=== PATIENT | male | born 1955 | race Caucasian/White ===

== ENCOUNTER 2021-06-11 14:09 | Emergency (ER) | payer MEDICARE, MEDICAID, SELFPAY ==
--- NOTE | ~2021-06-11 | XR_ITS ---
EXAMINATION: XR LUMBOSACRAL SPINE CLINICAL INFORMATION: Pain. Evaluate for compression fracture. COMPARISON: 04/29/2020 TECHNIQUE: Three views of the lumbosacral spine. FINDINGS: Stable anterior wedge compression fractures at L1 and L4 resulting in 40% height loss anteriorly at each level without significant loss of the posterior vertebral body height. Stable mild anterior wedging of the T12 vertebral body. Vertebral body heights are otherwise maintained. Small endplate osteophytes and facet arthropathy present throughout the lumbar spine. Moderate bilateral sacroiliac arthrosis. XR/XR lumbar spine 2-3V IMPRESSION: No acute findings. Stable anterior wedge compression fractures of L1 and L4 is 2015.
--- NOTE | ~2021-06-11 | XR_ITS ---
EXAMINATION: XR CHEST CLINICAL INFORMATION: Weakness COMPARISON: 08/30/2015 TECHNIQUE: 2 views of the chest were obtained. FINDINGS: Emphysema. Chronic pleural parenchymal scarring at the right lung apex, where there was previously a thick-walled cavitary lesion. No pleural effusion or pneumothorax. Normal heart size and pulmonary vascularity. No acute or suspicious osseous abnormalities. XR/XR chest 2V IMPRESSION: No acute findings. Emphysema.
[2021-06-11 14:24] VITALS: BP 121/83; BP 94/72; PULSE 104; RESP 18; TEMP 36.7; O2SAT 97; O2SAT 99; BMI 27.6
--- NOTE | 2021-06-11 15:02 | ECG_ITS ---
Test Reason : WEAKNESS Blood Pressure : / mmHG Vent. Rate : 094 BPM Atrial Rate : 094 BPM P-R Int : 146 ms QRS Dur : 086 ms QT Int : 370 ms P-R-T Axes : 081 -06 080 degrees QTc Int : 462 ms Normal sinus rhythm Nonspecific ST and T wave abnormality Abnormal ECG When compared with ECG of 31-AUG-2015 16:05, ST now depressed in Anterior leads Nonspecific T wave abnormality now evident in Anterior leads Referred By: Evelin Alvarez Electronically Signed By:ADINA VERA
--- NOTE | 2021-06-11 15:30 | ED.GENADULT ---
HPI - General Adult General Chief complaint: General Medical Stated complaint: LOW BACK PAIN X'S 1 WEEK,NO NEW INJURY Time Seen by Provider: 06/11/21 14:55 Source: EMS Mode of arrival: EMS Limitations: no limitations History of Present Illness HPI narrative: 66-year-old male with a past medical history of chronic back pain, COPD, bipolar disorder, alcohol induced cognitive impairment, hypertension here with complaints of lower back pain. Per nursing the patient had not been seen in several days and so a neighbor called EMS to do a well check on the patient. Tells me he has been lying in his bed for about 1 week and crawling on the floor to the kitchen to get food and drink. He tells me he has chronic lower back pain and because of this he has pain that limits his mobility. He was using lidocaine patches but ran out of these. He is not taking any other medications to help with the pain. He denies any radiation of pain. No numbness or tingling. No bowel or bladder incontinence. The patient tells me that today he was unable to get out of bed due to pain and therefore he was unable to get up to the bathroom. He was found by nursing to be covered in feces and urine. Related Data Allergies Allergy/AdvReac Type Severity Reaction Status Date / Time ibuprofen [IBUPROFEN] Allergy Severe ANAPHYLAXIS Verified 06/11/21 14:23 cat dander [CATS] Allergy Unknown UNKNOWN Verified 06/11/21 14:23 dog dander [DOGS] Allergy Unknown UNKNOWN Verified 06/11/21 14:23 Review of Systems Review of Systems: Yes all other systems are reviewed and are negative Constitutional: Constitutional: Reports no additional constitutional complaints, Denies body ache(s), Denies chills, Denies fever(s), Denies headache(s) and Denies weakness Eyes: Eyes: Reports no additional eye complaints and Denies change in vision ENT: Reports system reviewed and no additional complaints, except as documented, Denies dizziness, Denies headache(s), Denies nasal congestion, Denies nasal discharge and Denies neck pain Cardiovascular: Cardiovascular: Reports no additional cardiovascular complaints, Denies chest pain, Denies leg edema and Denies dyspnea Respiratory: Respiratory: Reports no additional respiratory complaints, Denies cough and Denies dyspnea Gastrointestinal: Gastrointestinal: Reports no additional gastrointestinal complaints, Denies abdominal pain, Denies diarrhea, Denies nausea and Denies vomiting Genitourinary: Genitourinary: Denies urinary incontinence Musculoskeletal: Musculoskeletal: Reports no additional musculoskeletal complaints, Reports back pain, Denies arthralgias, Denies joint swelling, Denies neck pain, Denies numbness and Denies tingling Integumentary/Breasts: Skin/Breast: Reports system reviewed and no additional complaints, except as docu and Denies rash Neurologic: Reports system reviewed and no additional complaints, except as documented, Denies Abnormal speech present, Denies dizziness, Denies headache(s), Denies numbness, Denies tingling and Denies weakness FOR[facility]LY [facility] Past Medical History Attestation statement: The following information was validated with the patient. Source: old records reviewed and nursing notes reviewed Social History Social History Advance Directives: No Advance Directives Information Provided: Yes Physical Exam Vital Signs: Vital Signs: Last Vital Signs Temp 98.1 F 06/11/21 14:24 Pulse 104 H 06/11/21 14:24 Resp 18 06/11/21 14:24 BP 94/72 06/11/21 14:24 Pulse Ox 97 06/11/21 14:24 Body Mass Index 27.6 ill kept, covered in feces and urine, thin appearing Const: General: cooperative, healthy appearing, comfortable and no acute distress Orientation/consciousness: patient oriented x3 Limitations: no limitations HENMT: Head: Yes normal to inspection Ears: hearing grossly normal bilaterally General nose exam: Normal external nose present Face and sinus: Yes normal facial exam Mouth: Normal oral and palatal mucosa present Throat: Yes posterior oropharynx normal Eyes: General: appearance normal, both eyes and all related structures Pupils: Equal, round and reactive pupils present Neck: Neck: Yes normal visual inspection Chest: Chest palpation & inspection: normal inspection of the chest Resp: Effort & Inspection: normal respiratory effort Auscultation: clear to auscultation bilaterally Cardio: Rate: regular rate Rhythm: regular rhythm Peripheral pulses: Peripheral pulses 2+ throughout GI: Inspection: Yes normal to inspection Palpation (GI): Soft to palpation and nontender Auscultation: normal bowel sounds : General: Yes no CVA tenderness Back/Spine/Pelvis: Other: Midline lumbar tenderness with no steps offs or deformities Back: no CVA tenderness Thoracic/Lumbar Spine: thoracic and lumbar spine normal to inspection Skin: General skin exam: no rashes or lesions noted Neuro: General: patient oriented x3, Normal light touch and pain sensation, no focal motor deficits, normal sensation to monofilament and Unable to assess gait Cranial nerves: Yes CN's II-XII intact bilaterally, Yes Equal, round and reactive pupils present, Yes Bilaterally intact EOM present, Yes Nystagmus not present, Yes Normal facial strength present and Yes Midline tongue present Cognition (Neuro): normal cognition Speech: No Abnormal speech present Gait exam (Neuro): Unable to assess gait Motor exam (neuro): 5/5 motor strength present throughout Sensory Exam: Normal double simultaneous stimulation for sensation Deep tendon reflexes (DTR's): Right patellar reflex intensity grade: 2+ and Left patellar reflex intensity grade: 2+ Coordination: [id number] test normal and [id number] test normal Extrem: General: Yes normal to inspection Course Course Course Narrative: 66 yo male coming from home with reports of worsening chronic low back pain where he know is unable to ambulate. Found laying in bed covered in feces, urine. No neuro deficits or red flag symptoms. Patient withdrawn, flat affect. Denies SI/HI. H/o bipolar but patient tells me discontinued all his medications. Unclear why. Will check labs, UA, CXR, lumbar x-ray, Ekg. 170-reviewed labs. Labs show hyponatremia, hypokalemia, hypochloremia, DEVANG. And on serum osmolality and urine studies. Patient tells me he has discontinued all his medications for quite some time and is currently not seeing a primary care doctor. He also tells me he drinks alcohol daily. I explained to him I would like to admit him to the hospital to treat his electrolyte abnormalities but the patient declined this. He tells me he would like to go home. I explained to him that he could have an abnormal heart rhythm or seizure and this could cause . Patient is aware of this and would like to go home. Explained him additionally that he has told me that he can barely walk due to his back pain and his x-ray today shows a new compression fracture. The patient tells me that he is able to manage and has a friend who lives close by who can help him. I offered him services in the home but he also declined this. He is alert and oriented x3. Denies any suicidal or homicidal thoughts. At this time the patient is able to make his own medical decisions and will sign out against medical advice. 1725-Received call from protective services. They are iniating a case. We discussed the patient at length. They asked for me to hold the patient in the ED tonight. I explicitly asked what their concerns were. The air pollution compliance inspectorday worker told me they were made aware the patient was found covered in feces and urine. They will assign a case therapist to follow-up with the patient who will come meet with the patient and evaluate his home. I asked if his house was deemed unsafe for him to return to and she was unable to answer this I have not seen the home. I explained the patient is oriented x 3 and at this point is able to make his own decisions. I also explained that I cannot hold the patient here against his will. I did discuss this case with my attending physician and while we feel the best decision would be for the patient to be admitted we both agree that he is able to make his own decisions. Protective services will follow-up with him tomorrow. Pt to sign out AMA. Medical Decision Making Medical Records Medical records reviewed: Yes I reviewed the patient's medical records. Lab Data Lab results reviewed: Yes I reviewed the patient's lab results. Result diagrams: 06/11/21 15:52 06/11/21 15:52 Labs: Lab Results 06/11/21 06/11/21 06/11/21 Range/Units 15:52 15:52 15:52 WBC 11.2 H (4.8-10.8) X10*3/uL RBC 5.91 H (4.60-5.80) X10*6/uL Hgb 18.8 H (14.0-18.0) g/dl Hct 50.5 (42-52) % MCV 85.4 (80-98) fL MCH 31.8 (27.0-33.0) pg MCHC 37.2 H (31.0-36.0) g/dl RDW 13.0 (11.0-16.0) % Plt Count 174 (160-400) X10*3/uL MPV 9.0 L (9.4-12.4) fL Immature Gran % (Auto) 1.1 H (0.0-0.4) % Neut % (Auto) 83.4 H (45-73) % Lymph % (Auto) 8.9 L (20-40) % [place] % (Auto) 6.4 (2-11) % Eos % (Auto) 0.1 (0-4) % Baso % (Auto) 0.1 (0-2) % Lymph # (Auto) 1.0 L (1.2-4.9) X10*3/uL [place] # (Auto) 0.7 (0.1-1.2) X10*3/uL Eos # (Auto) 0.0 (0.0-0.4) X10*3/uL Baso # (Auto) 0.0 (0.0-0.2) X10*3/uL Abs Immat Gran (auto) 0.12 H (0.00-0.03) X10*3/uL Absolute Neuts (auto) 9.3 H (2.0-8.3) X10*3/uL Absolute Nucleated RBC 0.030 H (0.0-0.012) X10*3/uL Nucleated RBC % (auto) 0.3 H (0.0-0.2) /100WBC PT (9.9-13.0) SEC INR (0.9-1.1) Sodium 124 L (135-145) mmol/L Potassium 2.8 L (3.3-5.1) mmol/L Chloride 82 L (96-108) mmol/L Carbon Dioxide 21 L (22-29) mmol/L Anion Gap 24 H (12-20) BUN 44 H (9-16) mg/dL Creatinine 1.45 H (0.5-1.4) mg/dL Estim Creat Clear Calc 58.2 Estimated GFR 49 Random Glucose 133 H (60-115) mg/dL Osmolality (281-305) mosm/kg Calcium 9.2 (8.4-10.2) mg/dL Magnesium 3.1 H (1.6-2.6) mg/dL Total Bilirubin 3.4 H (0.0-1.0) mg/dL Direct Bilirubin 2.2 H (0.0-0.5) mg/dL AST 29 (5-37) U/L ALT 31 (0-40) U/L Alkaline Phosphatase 119 H (39-117) U/L Total Creatine Kinase 63 (38-174) U/L Total Protein 7.5 (6.5-8.0) g/dL Albumin 3.7 (3.5-5.0) g/dL TSH 1.03 (0.32-4.0) uIU/mL COVID-19 (TOMY) Negative (Negative) COVID-19 Clin Com See Note 06/11/21 06/11/21 Range/Units 15:55 16:14 WBC (4.8-10.8) X10*3/uL RBC (4.60-5.80) X10*6/uL Hgb (14.0-18.0) g/dl Hct (42-52) % MCV (80-98) fL MCH (27.0-33.0) pg MCHC (31.0-36.0) g/dl RDW (11.0-16.0) % Plt Count (160-400) X10*3/uL MPV (9.4-12.4) fL Immature Gran % (Auto) (0.0-0.4) % Neut % (Auto) (45-73) % Lymph % (Auto) (20-40) % [place] % (Auto) (2-11) % Eos % (Auto) (0-4) % Baso % (Auto) (0-2) % Lymph # (Auto) (1.2-4.9) X10*3/uL [place] # (Auto) (0.1-1.2) X10*3/uL Eos # (Auto) (0.0-0.4) X10*3/uL Baso # (Auto) (0.0-0.2) X10*3/uL Abs Immat Gran (auto) (0.00-0.03) X10*3/uL Absolute Neuts (auto) (2.0-8.3) X10*3/uL Absolute Nucleated RBC (0.0-0.012) X10*3/uL Nucleated RBC % (auto) (0.0-0.2) /100WBC PT 13.5 H (9.9-13.0) SEC INR 1.2 H (0.9-1.1) Sodium (135-145) mmol/L Potassium (3.3-5.1) mmol/L Chloride (96-108) mmol/L Carbon Dioxide (22-29) mmol/L Anion Gap (12-20) BUN (9-16) mg/dL Creatinine (0.5-1.4) mg/dL Estim Creat Clear Calc Estimated GFR Random Glucose (60-115) mg/dL Osmolality 273 L (281-305) mosm/kg Calcium (8.4-10.2) mg/dL Magnesium (1.6-2.6) mg/dL Total Bilirubin (0.0-1.0) mg/dL Direct Bilirubin (0.0-0.5) mg/dL AST (5-37) U/L ALT (0-40) U/L Alkaline Phosphatase (39-117) U/L Total Creatine Kinase (38-174) U/L Total Protein (6.5-8.0) g/dL Albumin (3.5-5.0) g/dL TSH (0.32-4.0) uIU/mL COVID-19 (TOMY) (Negative) COVID-19 Clin Com Imaging Data Chest x-ray: Attestation: I personally reviewed and interpreted this imaging study as follows: Radiologist's impression: [place] [id number] XRay Report Signed Patient: Dat De Dios MR#: [id number] : 1955 Acct:[id number] Age/Sex: 66 / M ADM Date: 06/11/21 Loc: .ED Attending Dr: Ordering Physician: Evelin Alvarez NP Date of Service: 06/11/21 Procedure(s): XR chest 2V Accession Number(s): [id number] cc: Evelin Alvarez NP~ EXAMINATION: XR CHEST CLINICAL INFORMATION: Weakness COMPARISON: 08/30/2015 TECHNIQUE: 2 views of the chest were obtained. FINDINGS: Emphysema. Chronic pleural parenchymal scarring at the right lung apex, where there was previously a thick-walled cavitary lesion. No pleural effusion or pneumothorax. Normal heart size and pulmonary vascularity. No acute or suspicious osseous abnormalities. XR/XR chest 2V IMPRESSION: No acute findings. Emphysema. lumbar xray: Attestation: I personally reviewed and interpreted this imaging study as follows: Radiologist's impression: [address] [address] XRay Report Signed Patient: Dat De Dios MR#: [id number] : 1955 Acct:[id number] Age/Sex: 66 / M ADM Date: 06/11/21 Loc: [facility].ED Attending Dr: Ordering Physician: Evelin Alvarez NP Date of Service: 06/11/21 Procedure(s): XR lumbar spine 2-3V Accession Number(s): [id number] cc: Evelin Alvarez NP~ EXAMINATION: XR LUMBOSACRAL SPINE CLINICAL INFORMATION: Pain. Evaluate for compression fracture. COMPARISON: 04/29/2020 TECHNIQUE: Three views of the lumbosacral spine. FINDINGS: Stable anterior wedge compression fractures at L1 and L4 resulting in 40% height loss anteriorly at each level without significant loss of the posterior vertebral body height.? Stable mild anterior wedging of the T12 vertebral body. Vertebral body heights are otherwise maintained. Small endplate osteophytes and facet arthropathy present throughout the lumbar spine. Moderate bilateral sacroiliac arthrosis. XR/XR lumbar spine 2-3V IMPRESSION: No acute findings. Stable anterior wedge compression fractures of L1 and L4 is 2014. Discharge Plan Discharge Clinical Impression: Acute hyponatremia, Acute hypokalemia, DEVANG (acute kidney injury), Adult failure to thrive, Difficulty in walking, Compression fracture, Hypochloremia Patient Disposition: Left Against Medical Advice Instructions: Dehydration (ED), Vertebral Compression Fracture (ED), Hyponatremia (ED), Hypokalemia (ED) Additional Instructions: Your electrolytes are all very abnormal which can be life-threatening. You could have an abnormal heart rhythm or seizure and/or . It was recommended that he stay in the hospital and be admitted for IV management of your electrolyte abnormalities. You are welcome to return at any time. Stand Alone Forms: Against Medical Advice
[2021-06-11] MEDS: Acetaminophen 325 MG TABLET 975 MG PO (15:41)
[2021-06-11] MEDS: Lidocaine 4 % Patch ADH..PATCH 1 PATCH TRANSDERMA (15:42)
--- NOTE | 2021-06-11 15:42 | PC.NURSE ---
Addendum entered by Savi Isidro 06/11/21 15:49: *BROTHER NAME IS TRACEY Original Note: PATIENT SISTER ELLIOTT PHONE #[phone] AND BROTHER ASHUTOSH PHONE #[phone]
[2021-06-11 15:57] LABS: MANUAL DIFF FLAG NO
[2021-06-11 15:58] LABS: Basophils Percent Auto 0.1 % (0-2); Eosinophils Percent Auto 0.1 % (0-4); Hematocrit 50.5 % (42-52); Hemoglobin 18.8 g/dl (14.0-18.0); Imm Gran Abs Auto 0.12 X10*3/uL (0.00-0.03); Imm Gran Pct Auto 1.1 % (0.0-0.4); Lymphocytes Percent Auto 8.9 % (20-40); Mean Corpuscular HGB Conc 37.2 g/dl (31.0-36.0); Mean Corpuscular Hemoglobin 31.8 pg (27.0-33.0); Mean Corpuscular Volume 85.4 fL (80-98); Monocytes Absolute Auto 0.7 X10*3/uL (0.1-1.2); Monocytes Percent Auto 6.4 % (2-11); NRBC Pct Auto 0.3 /100WBC (0.0-0.2); Neutrophils Absolute Auto 9.3 X10*3/uL (2.0-8.3); Neutrophils Percent Auto 83.4 % (45-73); Platelet Count 174 X10*3/uL (160-400); Red Blood Count 5.91 X10*6/uL (4.60-5.80); White Blood Count 11.2 X10*3/uL (4.8-10.8)
[2021-06-11 16:13] LABS: COVID-19 Test Negative (Negative)
[2021-06-11 16:27] LABS: INTERNATIONAL NORM RATIO 1.2 (0.9-1.1); Prothrombin Time 13.5 SEC (9.9-13.0)
[2021-06-11 16:33] LABS: Alanine Aminotransferase 31 U/L (0-40); Albumin Level 3.7 g/dL (3.5-5.0); Alkaline Phosphatase 119 U/L (39-117); Aspartate Amino Transferase 29 U/L (5-37); Bilirubin Direct 2.2 mg/dL (0.0-0.5); Bilirubin Total 3.4 mg/dL (0.0-1.0); Blood Urea Nitrogen 44 mg/dL (9-16); Calcium 9.2 mg/dL (8.4-10.2); Creatinine Clr Calc Pharmacy 58.2; Estimated Glomerular Filt Rate 49; Glucose Random 133 mg/dL (60-115); Magnesium 3.1 mg/dL (1.6-2.6); Total Protein 7.5 g/dL (6.5-8.0)
[2021-06-11 16:42] LABS: Anion Gap 24 (12-20); Carbon Dioxide 21 mmol/L (22-29); Chloride 82 mmol/L (96-108); Potassium 2.8 mmol/L (3.3-5.1); Sodium 124 mmol/L (135-145)
[2021-06-11] MEDS: Potassium Chloride ER 20 MEQ TAB.ER.PRT 60 MEQ PO (16:52)
[2021-06-11 17:01] LABS: Osmolality, Serum 273 mosm/kg (281-305)
[2021-06-11 17:18] LABS: Thyroid Stimulating Hormone 1.03 uIU/mL (0.32-4.0)
== END 2021-06-11 17:36 | disposition left against medical advice (07) ==
PROVIDERS: Nurse Practitioner Family; Emergency Provider Internal Medicine; PCP Internal Medicine
DX: E87.1 Hypo-osmolality and hyponatremia (principal); E87.6 Hypokalemia; N17.9 Acute kidney failure, unspecified; R62.7 Adult failure to thrive; R26.2 Difficulty in walking, not elsewhere classified; Z20.822 Contact with and (suspected) exposure to COVID-19; M54.5 Low back pain; S32.010A Wedge compression fracture of first lumbar vertebra, initial encounter for closed fracture; S32.040A Wedge compression fracture of fourth lumbar vertebra, initial encounter for closed fracture; S22.080A Wedge compression fracture of T11-T12 vertebra, initial encounter for closed fracture; X58.XXXA Exposure to other specified factors, initial encounter; Y93.9 Activity, unspecified; Y92.9 Unspecified place or not applicable; Y99.9 Unspecified external cause status; F10.20 Alcohol dependence, uncomplicated; I10 Essential (primary) hypertension; F17.210 Nicotine dependence, cigarettes, uncomplicated
CPT/HCPCS: 36415; 71046; 72100; 80048; 80076; 82550; 83735; 83930; 84443; 85025; 85610; 87635; 93005; 99284; 99285

== ENCOUNTER 2021-06-13 13:21 | Inpatient (IN) | payer MEDICARE, MEDICAID, SELFPAY ==
--- NOTE | ~2021-06-13 | CT_ITS ---
EXAMINATION: CT CHEST WITHOUT CONTRAST CLINICAL INFORMATION: Fall. COMPARISON: Chest x-ray 06/11/2021. XR lumbar spine 06/11/2021. TECHNIQUE: Multidetector volumetric CT imaging of the chest was done. Axial MIP volume rendering provided. Sagittal and coronal reformatted images were obtained. This CT examination was performed using dose optimization techniques as appropriate, variously including the following: *Automated exposure control *Adjustment of mA and/or kV according to patient size (this includes techniques or standardized protocols for targeted exams where dose is matched to indication/reason for exam; i.e. extremities or head) *Use of iterative reconstruction technique DLP: 1335 mGy-cm (includes chest, head, and cervical CT) FINDINGS: CIGARET[employer] PACKAGE EXAMINER: Unremarkable. LUNGS: There is diffuse moderate centrilobular and paraseptal emphysema, predominating in the upper lobes. There is mild atelectasis or scarring in the lingula. There is no focal consolidation. There are no apparent pulmonary contusions. MEDIASTINUM: There are scattered atherosclerotic calcifications in the thoracic aorta and coronary arteries. There is no mediastinal or hilar adenopathy. The thyroid gland is unremarkable. PLEURA: There is moderate elevation of the left hemidiaphragm, more so posteriorly, suggesting eventration. AXILLA: No lymphadenopathy. UPPER ABDOMEN: Unremarkable. OSSEOUS STRUCTURES: There appear be old healed left anterolateral 5th and 6th rib fractures. No acute rib fractures are identified. There is a moderate compression deformity of the L1 vertebral body, similar to lumbar radiographs from today but worse when compared to a CT of the chest from 08/22/2015. CT/CT chest wo con IMPRESSION: 1. Diffuse moderate centrilobular and paraseptal emphysema. Mild atelectasis or scarring in the lingula. 2. Moderate elevation of the left hemidiaphragm. 3. Moderate compression deformity of the L1 vertebral body of indeterminate age.
--- NOTE | ~2021-06-13 | CT_ITS ---
EXAMINATION: CT HEAD WITHOUT CONTRAST CLINICAL INFORMATION: Fall, trauma, pain COMPARISON: MR brain 08/30/2015 TECHNIQUE: Contiguous axial imaging was performed from the skull base to vertex without intravenous administration of contrast. Additional 2-D coronal and sagittal reformatted images are generated on the CT workstation and uploaded to PACS. This CT examination was performed using dose optimization techniques as appropriate, variously including the following: *Automated exposure control *Adjustment of mA and/or kV according to patient size (this includes techniques or standardized protocols for targeted exams where dose is matched to indication/reason for exam; i.e. extremities or head) *Use of iterative reconstruction technique DLP: 693 mGy-cm FINDINGS: There is no intracranial hemorrhage, hematoma, or extra-axial fluid collection. The ventricles are normal in size. There is no hydrocephalus, edema, or mass effect. The perez-white matter differentiation appears symmetric. There is no visible acute territorial infarct or mass lesion. The calvarium appears intact. There is no pneumocephalus or orbital emphysema. The visualized sinuses and middle ears and mastoid air cells show no significant mucosal thickening. There are no air-fluid levels. CT/CT head/brain wo con IMPRESSION: No acute intracranial abnormality.
--- NOTE | ~2021-06-13 | CT_ITS ---
EXAMINATION: CT CERVICAL SPINE WITHOUT CONTRAST CLINICAL INFORMATION: Fall, trauma, pain COMPARISON: CT head 06/13/2021, MR brain 08/30/2015 TECHNIQUE: Multidetector volumetric CT imaging of the cervical spine is performed without contrast in the axial plane. Additional 2D reformatted coronal and sagittal images are generated on the CT workstation and uploaded to PACS. This CT examination was performed using dose optimization techniques as appropriate, variously including the following: *Automated exposure control *Adjustment of mA and/or kV according to patient size (this includes techniques or standardized protocols for targeted exams where dose is matched to indication/reason for exam; i.e. extremities or head) *Use of iterative reconstruction technique DLP: 346 mGy-cm FINDINGS: There is no vertebral compression fracture, fracture line, spondylolisthesis, or prevertebral soft tissue swelling. The craniocervical junction appears normal. The odontoid appears intact. There is mild straightening cervical lordosis. There is anterior vertebral spurring at C5-C6 and C6-C7. Mild degenerative changes are present between anterior arch C1 and the dens. There is no apical pneumothorax. There are apical blebs and bulla. CT/CT cervical spine wo con IMPRESSION: No acute bony abnormality or prevertebral soft tissue swelling.
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
--- NOTE | 2021-06-13 13:34 | ECG_ITS ---
Test Reason : GENERAL MEDICINE Blood Pressure : / mmHG Vent. Rate : 104 BPM Atrial Rate : 104 BPM P-R Int : 136 ms QRS Dur : 084 ms QT Int : 372 ms P-R-T Axes : 083 068 085 degrees QTc Int : 489 ms Poor data quality, interpretation may be adversely affected Sinus tachycardia Right atrial enlargement Nonspecific ST and T wave abnormality Abnormal ECG When compared with ECG of 11-JUN-2021 15:45, T wave inversion now evident in Lateral leads Referred By: Kimberley Key Electronically Signed By:ADINA VERA
[2021-06-13 13:37] VITALS: BP 129/84; BP 98/61; PULSE 112; RESP 18; TEMP 36.9; O2SAT 96; BMI 20.6
--- NOTE | 2021-06-13 13:55 | PHA.MEDREC ---
Pharmacy Consult ? Medication Reconciliation Pharmacy has completed the medication reconciliation. Patient states to only be taking Combivent for COPD but the last time he filled it was 02/10/2020. Roberta Morel, PharmD [phone]
[2021-06-13 14:00] VITALS: BP 114/61; PULSE 108; RESP 18; TEMP 36.9; O2SAT 96
[2021-06-13 14:38] LABS: MANUAL DIFF FLAG NO
[2021-06-13 14:42] LABS: Basophils Percent Auto 0.2 % (0-2); Eosinophils Percent Auto 0.2 % (0-4); Hematocrit 49.3 % (42-52); Hemoglobin 18.5 g/dl (14.0-18.0); Imm Gran Abs Auto 0.16 X10*3/uL (0.00-0.03); Imm Gran Pct Auto 1.3 % (0.0-0.4); Lymphocytes Absolute Auto 1.3 X10*3/uL (1.2-4.9); Lymphocytes Percent Auto 10.5 % (20-40); Mean Corpuscular HGB Conc 37.5 g/dl (31.0-36.0); Mean Corpuscular Hemoglobin 31.8 pg (27.0-33.0); Mean Corpuscular Volume 84.9 fL (80-98); Mean Platelet Volume 9.3 fL (9.4-12.4); Monocytes Absolute Auto 0.7 X10*3/uL (0.1-1.2); Monocytes Percent Auto 5.6 % (2-11); NRBC Pct Auto 0.4 /100WBC (0.0-0.2); Neutrophils Absolute Auto 9.9 X10*3/uL (2.0-8.3); Neutrophils Percent Auto 82.2 % (45-73); Platelet Count 173 X10*3/uL (160-400); Red Blood Count 5.81 X10*6/uL (4.60-5.80); Red Cell Distribution Width 13.1 % (11.0-16.0); White Blood Count 12.1 X10*3/uL (4.8-10.8)
[2021-06-13 14:47] LABS: VBG Base Excess 3.7 mmol/L; VBG HCO3 23 mmol/L (22-26); VBG pCO2 25 mmHg; VBG pH 7.57 (7.32-7.43); VBG pO2 114 mmHg
[2021-06-13 14:48] LABS: Venous Blood Gas Refer to POC result
[2021-06-13 14:48] LABS: Ammonia 37 umol/L (13-55)
[2021-06-13 14:50] LABS: INTERNATIONAL NORM RATIO 1.1 (0.9-1.1); Prothrombin Time 12.4 SEC (9.9-13.0)
[2021-06-13 14:53] LABS: Partial Thromboplastin Time 27.3 SEC (24.1-38.0)
[2021-06-13 14:58] LABS: Ethanol < 10 mg/dL
[2021-06-13 14:59] LABS: COVID-19 Test Negative (Negative); IDNOW Serial# 08D9AD1C
[2021-06-13 15:01] LABS: Lactic Acid 2.9 mmol/L (0.5-2.0)
[2021-06-13] MEDS: Thiamine HCL 100 MG in 0.9 % Sodium Chloride 100 ML 202 MG IV (15:01)
[2021-06-13] MEDS: 0.9 % Sodium Chloride 1,000 ML 999 ML IVCONT (15:01)
[2021-06-13] MEDS: Folic Acid 1 MG in 0.9 % Sodium Chloride 50 ML 100.4 MG IV (15:01)
[2021-06-13 15:07] LABS: Alanine Aminotransferase 33 U/L (0-40); Albumin Level 3.7 g/dL (3.5-5.0); Alkaline Phosphatase 129 U/L (39-117); Aspartate Amino Transferase 36 U/L (5-37); Bilirubin Direct 1.3 mg/dL (0.0-0.5); Bilirubin Total 2.2 mg/dL (0.0-1.0); Blood Urea Nitrogen 69 mg/dL (9-16); Calcium 9.2 mg/dL (8.4-10.2); Creatinine Clr Calc Pharmacy 35.2; Estimated Glomerular Filt Rate 31; Glucose Random 109 mg/dL (60-115); Lipase 99 U/L (8-78); Magnesium 3.4 mg/dL (1.6-2.6); Total Protein 7.4 g/dL (6.5-8.0)
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
[2021-06-13 15:15] LABS: Anion Gap 22 (12-20); Carbon Dioxide 20 mmol/L (22-29); Chloride 85 mmol/L (96-108); Potassium 2.9 mmol/L (3.3-5.1); Sodium 124 mmol/L (135-145); Troponin-I High Sensitivity 5.7 ng/L (<3.5-35.0)
[2021-06-13 15:20] LABS: TSH reflex Free T4 0.97 uIU/mL (0.32-4.0)
[2021-06-13] MEDS: 0.9 % Sodium Chloride 1,000 ML 999 ML IV (15:32)
[2021-06-13] MEDS: Magnesium Sulfate/H2O 2 GM/50 ML PIGGYBACK IV (15:43)
[2021-06-13] MEDS: Potassium Chloride ER 20 MEQ TAB.ER.PRT PO (15:46)
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
[2021-06-13 16:36] LABS: Reflex Lactate? Lactic Acid Added
--- NOTE | 2021-06-13 16:56 | PC.NURSE ---
first call to [facility]. lori ferrera to take report
[2021-06-13 17:26] LABS: ~Lactic Acid-LAB USE ONLY 2.7 mmol/L (0.5-2.0)
[2021-06-13 17:49] VITALS: BP 94/62; PULSE 72; RESP 18; TEMP 36.3; O2SAT 98
[2021-06-13] MEDS: Potassium Chloride/H20 10 MEQ/100 ML PIGGYBACK 100 MEQ IV ×2 (18:17→19:58)
[2021-06-13] MEDS: Heparin Sodium,Porcine 5,000 UNIT/ML VIAL 5000 UNIT SUBCUT (18:18)
[2021-06-13] MEDS: Lactated Ringers 1,000 ML 80 ML IVCONT (18:18)
[2021-06-13 18:57] LABS: Reflex Lactate? 2 Y
[2021-06-13 19:27] VITALS: BP 101/58; PULSE 84; RESP 18; TEMP 36.1; O2SAT 99
[2021-06-13] MEDS: Melatonin 3 MG TABLET 6 MG PO (20:06)
[2021-06-13 20:34] LABS: ~Lactic Acid-LAB USE ONLY 1.6 mmol/L (0.5-2.0)
[2021-06-13 20:43] LABS: Anion Gap 14 (12-20); Blood Urea Nitrogen 58 mg/dL (9-16); Calcium 8.3 mg/dL (8.4-10.2); Carbon Dioxide 26 mmol/L (22-29); Chloride 90 mmol/L (96-108); Creatinine Clr Calc Pharmacy 42.6; Estimated Glomerular Filt Rate 39; Glucose Random 119 mg/dL (60-115); Potassium 3.4 mmol/L (3.3-5.1); Sodium 127 mmol/L (135-145)
[2021-06-13 22:33] LABS: Glucose Urine UA NEG (NEG); Leukocyte Esterase Urine NEG (NEG); Nitrite Urine NEG (NEG); PH 5.5 (5.0-8.0); Specific Gravity - Urine 1.015 (1.005-1.025); Urine Blood TRACE (NEG); Urine Ketones NEG (NEG); Urine Protein NEG (NEG-TRACE)
[2021-06-13 22:35] LABS: Appearance Urine CLEAR; Color Urine DARK YELLOW
[2021-06-13 22:44] LABS: WBC Urine 0-2 /HPF (0-4)
[2021-06-13 22:49] LABS: Amphetamine Screen Urine Not Detected (Not Detect); Barbiturates, Urine Not Detected (Not Detect); Benzodiazepines Screen Urine Not Detected (Not Detect); Cannabinoid Screen Urine Not Detected (Not Detect); Cocaine Screen Urine Not Detected (Not Detect); Fentanyl, urine Not Detected (Not Detect); Opiate Screen Urine Not Detected (Not Detect); Phencyclidine Screen Urine Not Detected (Not Detect)
[2021-06-13 22:59] LABS: Osmolality Urine 594 mosm/kg (373-1093)
[2021-06-13 23:01] LABS: Sodium Urine Random < 20.0 mmol/L
[2021-06-13 23:27] VITALS: BP 98/62; PULSE 82; RESP 16; TEMP 36.2; O2SAT 98
[2021-06-14] VITALS (7 sets, daily range): BP systolic 91–98; BP diastolic 52–64; PULSE 65–80; RESP 16–19; TEMP 35.6–36.6; O2SAT 94–98
[2021-06-14 00:52] LABS: Chloride Urine Random < 20.0 mmol/L
[2021-06-14] MEDS: Heparin Sodium,Porcine 5,000 UNIT/ML VIAL 5000 UNIT SUBCUT ×3 (01:28→16:21)
[2021-06-14 07:30] LABS: Hemoglobin 15.4 g/dl (14.0-18.0); NRBC Pct Auto 0.2 /100WBC (0.0-0.2)
[2021-06-14 07:32] LABS: Hematocrit 42.4 % (42-52); Mean Corpuscular HGB Conc 36.3 g/dl (31.0-36.0); Mean Corpuscular Hemoglobin 31.7 pg (27.0-33.0); Mean Corpuscular Volume 87.2 fL (80-98); Mean Platelet Volume 9.9 fL (9.4-12.4); Red Blood Count 4.86 X10*6/uL (4.60-5.80); Red Cell Distribution Width 13.1 % (11.0-16.0)
[2021-06-14] MEDS: Albuterol/Iprat 2.5/0.5MG 3 ML AMPUL.NEB INHALE (07:37)
[2021-06-14 07:39] LABS: Platelet Count 126 X10*3/uL (160-400)
[2021-06-14 07:49] LABS: Anion Gap 13 (12-20); Blood Urea Nitrogen 51 mg/dL (9-16); Calcium 8.3 mg/dL (8.4-10.2); Carbon Dioxide 28 mmol/L (22-29); Chloride 91 mmol/L (96-108); Creatinine Clr Calc Pharmacy 51.3; Estimated Glomerular Filt Rate 48; Glucose Fasting 105 mg/dL (60-99); Potassium 3.4 mmol/L (3.3-5.1); Sodium 129 mmol/L (135-145)
[2021-06-14] MEDS: Thiamine HCL 100 MG TABLET PO (08:28)
[2021-06-14] MEDS: Folic Acid 1 MG TABLET PO (08:28)
--- NOTE | 2021-06-14 08:52 | MHC.CM.PN ---
IMM 06/14/21 Male 66 DX DEVANG. He lives alone. He is independent with all functional mobility. A copy of his HCP has been requested. DP home no services and family transportation.
--- NOTE | 2021-06-14 09:24 | P.CDIC_ITS ---
CDI Concurrent Query Service Date: 06/14/21 Documentation Clarification: Please clarify if you are treating a proba ble/suspected/likely or confirmed: Please clarify, if any of the following, is most likely the etiology of the confusion/AMS. Toxic encephalopathy Metabolic encephalopathy Alcoholic encephalopathy Other, or undetermined Provider Response: Other Other Diagnosis: alcohol dementia and acute possible acute psychosis related to bipolar PLEASE DO NOT DELETE/MODIFY EXISTING CONTENT Additional information is needed in order to code to the highest accuracy and appropriate Severity of Illness (SOI). Please clarify the information noted below in your progress notes and discharge summary. Risk Factors/Clinical Indicators/Treatments Alcoholic, altered mental status, more confused, noncompliant with Bipolar meds. Section 12, reports he has been in the ED for 3 weeks, vague historian, metabolic abnormalities, noncompliant with medications, alcoholism, FTT. CDS: Katerine Garcia CCS, CDIS Contact Number: [phone] Please Review the information above and exercise your independent professional judgment in responding to the query. If you concur, pleas document in the PROGRESS NOTES and DISCHARGE SUMMARY. If you do not agree with the query, please document in the query above. THIS QUERY IS PART OF THE PERMANENT MEDICAL RECORD
--- NOTE | 2021-06-14 09:46 | P.PNIM_ITS ---
Subjective Subjective Date of Service: 06/14/21 Interval History: no complaints Cardiovascular Cardiovascular: Reports no additional cardiovascular complaints Respiratory Respiratory: Reports no additional respiratory complaints Physical Exam Vital Signs: Vital Signs: Last Vital Signs Temp 96.1 F L 06/14/21 03:13 Pulse 78 06/14/21 07:42 Resp 16 06/14/21 07:20 BP 91/60 06/14/21 07:20 Pulse Ox 96 06/14/21 07:20 Body Mass Index 20.6 General: AO X 2, no acute distress Resp: CTA bilateral CVS: S1,S2,RRR GI: soft, non tender, non distended Neuro: motor grossly intact Psych: impaired insight Objective Data Current Medications Generic Name Dose Route Start Last Admin Trade Name Freq PRN Reason Stop Dose Admin Albuterol/Ipratropium 3 ml 06/14/21 08:00 06/14/21 07:37 Albuterol/Iprat 2.5/0.5mg 3 Ml Ampul.Neb INHALE 3 ml RDAILY [facility] Administration Folic Acid 1 mg 06/14/21 09:00 06/14/21 08:28 Folic Acid 1 Mg Tablet PO 1 mg DAILY DIANE Administration Heparin Sodium (Porcine) 5,000 unit 06/13/21 17:00 06/14/21 08:28 Heparin Sodium,Porcine 5,000 Unit/Ml Vial SUBCUT 5,000 unit Q8H DIANE Administration Lactated Ringer's 1,000 mls @ 80 mls/hr 06/13/21 16:30 06/14/21 05:14 Lr IVCONT Not Given .[id number] [facility] Melatonin 6 mg 06/13/21 19:43 06/13/21 20:06 Melatonin 3 Mg Tablet PO 6 mg BEDTIME PRN Administration Insomnia Multivitamins/Minerals 1 tab 06/14/21 09:00 06/14/21 08:27 Multivitamin With Minerals Tablet PO 1 tab DAILY DIANE Administration Pharmacy Consult 1 each 06/13/21 13:34 Consult Rx Perform Med Rec MISCELLANE ONCE PRN Consult order Sodium Chloride 3 ml 06/14/21 00:00 06/14/21 08:30 0.9 % Sodium Chloride Flush 3 Ml Syringe IVFLUSH Not Given QSHIFT [facility] Thiamine HCl 100 mg 06/14/21 09:00 06/14/21 08:28 Thiamine Hcl 100 Mg Tablet PO 100 mg DAILY DIANE Administration Labs CBC & Chem 7: 06/14/21 05:57 06/14/21 05:57 Labs: Laboratory Results - last 24 hr 06/13/21 06/13/21 06/13/21 14:26 14:26 14:26 MCV 84.9 MCH 31.8 MCHC 37.5 H RDW 13.1 Plt Count 173 MPV 9.3 L Immature Gran % (Auto) 1.3 H Neut % (Auto) 82.2 H Lymph % (Auto) 10.5 L [place] % (Auto) 5.6 Eos % (Auto) 0.2 Baso % (Auto) 0.2 Lymph # (Auto) 1.3 [place] # (Auto) 0.7 Eos # (Auto) 0.0 Baso # (Auto) 0.0 Abs Immat Gran (auto) 0.16 H Absolute Neuts (auto) 9.9 H Absolute Nucleated RBC 0.050 H Nucleated RBC % (auto) 0.4 H PT 12.4 INR 1.1 APTT 27.3 VBG pH VBG pCO2 VBG pO2 VBG HCO3 VBG O2 Saturation VBG Base Excess Anion Gap Estim Creat Clear Calc Estimated GFR Random Glucose Fasting Glucose Lactic Acid Lactic Acid Fup @ 2Hr Lactic Acid Fup @ 4Hr Calcium Magnesium Total Bilirubin Direct Bilirubin AST ALT Alkaline Phosphatase Ammonia Total Creatine Kinase Troponin I High Sens Total Protein Albumin Lipase TSH Urine Color Urine Appearance Urine pH Ur Specific [place] Urine Protein Urine Glucose (UA) Urine Ketones Urine Blood Urine Nitrite Ur Leukocyte Esterase Urine RBC Urine WBC Ur Squamous Epith Cells Urine Bacteria Hyaline Casts Urine Osmolality Ur Random Sodium Ur Random Potassium Ur Random Chloride Urine Opiates Screen Urine Fentanyl Screen Ur Barbiturates Screen Ur Phencyclidine Scrn Ur Amphetamines Screen U Benzodiazepines Scrn Urine Cocaine Screen U Marijuana (THC) Screen Ethyl Alcohol COVID-19 (TOMY) Negative COVID-19 Clin Com See Note 06/13/21 06/13/21 06/13/21 14:26 14:27 14:27 MCV MCH MCHC RDW Plt Count MPV Immature Gran % (Auto) Neut % (Auto) Lymph % (Auto) [place] % (Auto) Eos % (Auto) Baso % (Auto) Lymph # (Auto) [place] # (Auto) Eos # (Auto) Baso # (Auto) Abs Immat Gran (auto) Absolute Neuts (auto) Absolute Nucleated RBC Nucleated RBC % (auto) PT INR APTT VBG pH VBG pCO2 VBG pO2 VBG HCO3 VBG O2 Saturation VBG Base Excess Anion Gap 22 H Estim Creat Clear Calc 35.2 Estimated GFR 31 Random Glucose 109 Fasting Glucose Lactic Acid 2.9 H* Lactic Acid Fup @ 2Hr Lactic Acid Fup @ 4Hr Calcium 9.2 Magnesium 3.4 H Total Bilirubin 2.2 H Direct Bilirubin 1.3 H AST 36 ALT 33 Alkaline Phosphatase 129 H Ammonia Total Creatine Kinase 73 Troponin I High Sens Total Protein 7.4 Albumin 3.7 Lipase 99 H TSH Urine Color Urine Appearance Urine pH Ur Specific [place] Urine Protein Urine Glucose (UA) Urine Ketones Urine Blood Urine Nitrite Ur Leukocyte Esterase Urine RBC Urine WBC Ur Squamous Epith Cells Urine Bacteria Hyaline Casts Urine Osmolality Ur Random Sodium Ur Random Potassium Ur Random Chloride Urine Opiates Screen Urine Fentanyl Screen Ur Barbiturates Screen Ur Phencyclidine Scrn Ur Amphetamines Screen U Benzodiazepines Scrn Urine Cocaine Screen U Marijuana (THC) Screen Ethyl Alcohol < 10 COVID-19 (TOMY) COVID-19 Clin Com 06/13/21 06/13/21 06/13/21 14:27 14:27 14:27 MCV MCH MCHC RDW Plt Count MPV Immature Gran % (Auto) Neut % (Auto) Lymph % (Auto) [place] % (Auto) Eos % (Auto) Baso % (Auto) Lymph # (Auto) [place] # (Auto) Eos # (Auto) Baso # (Auto) Abs Immat Gran (auto) Absolute Neuts (auto) Absolute Nucleated RBC Nucleated RBC % (auto) PT INR APTT VBG pH VBG pCO2 VBG pO2 VBG HCO3 VBG O2 Saturation VBG Base Excess Anion Gap Estim Creat Clear Calc Estimated GFR Random Glucose Fasting Glucose Lactic Acid Lactic Acid Fup @ 2Hr Lactic Acid Fup @ 4Hr Calcium Magnesium Total Bilirubin Direct Bilirubin AST ALT Alkaline Phosphatase Ammonia 37 Total Creatine Kinase Troponin I High Sens 5.7 Total Protein Albumin Lipase TSH 0.97 Urine Color Urine Appearance Urine pH Ur Specific [place] Urine Protein Urine Glucose (UA) Urine Ketones Urine Blood Urine Nitrite Ur Leukocyte Esterase Urine RBC Urine WBC Ur Squamous Epith Cells Urine Bacteria Hyaline Casts Urine Osmolality Ur Random Sodium Ur Random Potassium Ur Random Chloride Urine Opiates Screen Urine Fentanyl Screen Ur Barbiturates Screen Ur Phencyclidine Scrn Ur Amphetamines Screen U Benzodiazepines Scrn Urine Cocaine Screen U Marijuana (THC) Screen Ethyl Alcohol COVID-19 (TOMY) COVID-19 Clin Com 06/13/21 06/13/21 06/13/21 14:40 16:49 20:14 MCV MCH MCHC RDW Plt Count MPV Immature Gran % (Auto) Neut % (Auto) Lymph % (Auto) [place] % (Auto) Eos % (Auto) Baso % (Auto) Lymph # (Auto) [place] # (Auto) Eos # (Auto) Baso # (Auto) Abs Immat Gran (auto) Absolute Neuts (auto) Absolute Nucleated RBC Nucleated RBC % (auto) PT INR APTT VBG pH 7.57 H VBG pCO2 25 VBG pO2 114 VBG HCO3 23 VBG O2 Saturation 98.0 VBG Base Excess 3.7 Anion Gap 14 Estim Creat Clear Calc 42.6 Estimated GFR 39 Random Glucose 119 H Fasting Glucose Lactic Acid Lactic Acid Fup @ 2Hr 2.7 H* Lactic Acid Fup @ 4Hr Calcium 8.3 L D Magnesium Total Bilirubin Direct Bilirubin AST ALT Alkaline Phosphatase Ammonia Total Creatine Kinase Troponin I High Sens Total Protein Albumin Lipase TSH Urine Color Urine Appearance Urine pH Ur Specific [place] Urine Protein Urine Glucose (UA) Urine Ketones Urine Blood Urine Nitrite Ur Leukocyte Esterase Urine RBC Urine WBC Ur Squamous Epith Cells Urine Bacteria Hyaline Casts Urine Osmolality Ur Random Sodium Ur Random Potassium Ur Random Chloride Urine Opiates Screen Urine Fentanyl Screen Ur Barbiturates Screen Ur Phencyclidine Scrn Ur Amphetamines Screen U Benzodiazepines Scrn Urine Cocaine Screen U Marijuana (THC) Screen Ethyl Alcohol COVID-19 (TOMY) COVID-19 Clin Com 06/13/21 06/13/21 06/13/21 20:14 22:20 22:20 MCV MCH MCHC RDW Plt Count MPV Immature Gran % (Auto) Neut % (Auto) Lymph % (Auto) [place] % (Auto) Eos % (Auto) Baso % (Auto) Lymph # (Auto) [place] # (Auto) Eos # (Auto) Baso # (Auto) Abs Immat Gran (auto) Absolute Neuts (auto) Absolute Nucleated RBC Nucleated RBC % (auto) PT INR APTT VBG pH VBG pCO2 VBG pO2 VBG HCO3 VBG O2 Saturation VBG Base Excess Anion Gap Estim Creat Clear Calc Estimated GFR Random Glucose Fasting Glucose Lactic Acid Lactic Acid Fup @ 2Hr Lactic Acid Fup @ 4Hr 1.6 Calcium Magnesium Total Bilirubin Direct Bilirubin AST ALT Alkaline Phosphatase Ammonia Total Creatine Kinase Troponin I High Sens Total Protein Albumin Lipase TSH Urine Color DARK YELLOW Urine Appearance CLEAR Urine pH 5.5 Ur Specific [place] 1.015 Urine Protein NEG Urine Glucose (UA) NEG Urine Ketones NEG Urine Blood TRACE Urine Nitrite NEG Ur Leukocyte Esterase NEG Urine RBC 1-4 Urine WBC 0-2 Ur Squamous Epith Cells NONE Urine Bacteria NONE Hyaline Casts 1-4 Urine Osmolality Ur Random Sodium Ur Random Potassium Ur Random Chloride Urine Opiates Screen Not Detected Urine Fentanyl Screen Not Detected Ur Barbiturates Screen Not Detected Ur Phencyclidine Scrn Not Detected Ur Amphetamines Screen Not Detected U Benzodiazepines Scrn Not Detected Urine Cocaine Screen Not Detected U Marijuana (THC) Screen Not Detected Ethyl Alcohol COVID-19 (TOMY) COVID-[place]ow[place] 06/13/21 06/13/21 06/14/21 22:20 22:20 05:57 MCV 87.2 MCH 31.7 MCHC 36.3 H RDW 13.1 Plt Count 126 L D MPV 9.9 Immature Gran % (Auto) Neut % (Auto) Lymph % (Auto) [place] % (Auto) Eos % (Auto) Baso % (Auto) Lymph # (Auto) [place] # (Auto) Eos # (Auto) Baso # (Auto) Abs Immat Gran (auto) Absolute Neuts (auto) Absolute Nucleated RBC 0.020 H Nucleated RBC % (auto) 0.2 PT INR APTT VBG pH VBG pCO2 VBG pO2 VBG HCO3 VBG O2 Saturation VBG Base Excess Anion Gap Estim Creat Clear Calc Estimated GFR Random Glucose Fasting Glucose Lactic Acid Lactic Acid Fup @ 2Hr Lactic Acid Fup @ 4Hr Calcium Magnesium Total Bilirubin Direct Bilirubin AST ALT Alkaline Phosphatase Ammonia Total Creatine Kinase Troponin I High Sens Total Protein Albumin Lipase TSH Urine Color Urine Appearance Urine pH Ur Specific [place] Urine Protein Urine Glucose (UA) Urine Ketones Urine Blood Urine Nitrite Ur Leukocyte Esterase Urine RBC Urine WBC Ur Squamous Epith Cells Urine Bacteria Hyaline Casts Urine Osmolality 594 Ur Random Sodium < 20.0 Ur Random Potassium 38.0 Ur Random Chloride < 20.0 Urine Opiates Screen Urine Fentanyl Screen Ur Barbiturates Screen Ur Phencyclidine Scrn Ur Amphetamines Screen U Benzodiazepines Scrn Urine Cocaine Screen U Marijuana (THC) Screen Ethyl Alcohol COVID-19 (TOMY) COVID-[place]ow[place] 06/14/21 05:57 MCV MCH MCHC RDW Plt Count MPV Immature Gran % (Auto) Neut % (Auto) Lymph % (Auto) [place] % (Auto) Eos % (Auto) Baso % (Auto) Lymph # (Auto) [place] # (Auto) Eos # (Auto) Baso # (Auto) Abs Immat Gran (auto) Absolute Neuts (auto) Absolute Nucleated RBC Nucleated RBC % (auto) PT INR APTT VBG pH VBG pCO2 VBG pO2 VBG HCO3 VBG O2 Saturation VBG Base Excess Anion Gap 13 Estim Creat Clear Calc 51.3 Estimated GFR 48 Random Glucose Fasting Glucose 105 H Lactic Acid Lactic Acid Fup @ 2Hr Lactic Acid Fup @ 4Hr Calcium 8.3 L Magnesium Total Bilirubin Direct Bilirubin AST ALT Alkaline Phosphatase Ammonia Total Creatine Kinase Troponin I High Sens Total Protein Albumin Lipase TSH Urine Color Urine Appearance Urine pH Ur Specific [place] Urine Protein Urine Glucose (UA) Urine Ketones Urine Blood Urine Nitrite Ur Leukocyte Esterase Urine RBC Urine WBC Ur Squamous Epith Cells Urine Bacteria Hyaline Casts Urine Osmolality Ur Random Sodium Ur Random Potassium Ur Random Chloride Urine Opiates Screen Urine Fentanyl Screen Ur Barbiturates Screen Ur Phencyclidine Scrn Ur Amphetamines Screen U Benzodiazepines Scrn Urine Cocaine Screen U Marijuana (THC) Screen Ethyl Alcohol COVID-19 (TOMY) COVID-19 Clin Com Assessment and Plan (1) DEVANG (acute kidney injury): Status: Acute Assessment and Plan: 66M brought in by EMS found to be living in condemned house unable to care for himself, now confused, found to have DEVANG, hypokalemia, hyponatremia FTT DEVANG likely poor intake improving with IVF continue IVF, nephro, monitor hyopkalemia replace, monitor confusion alcohol dementia +/- acute psychosis continue b1, folate, mvi hyponatremia likely poor solute intake and alcohol intake improving at appropriate rate mointor bmp alcohol dependence cIWA, currently 0 thimaine, folate, mvi COPD combivent vte prophylaxis - heparin full code Quality Stroke Does the patient have a stroke diagnosis?: No VTE Prior VTE?: No VTE Risk Level:: Medical - moderate - high VTE Device Contraindication: Treatment Not Indicated VTE Drug Contraindication: N/A - Med Ordered
[2021-06-14] MEDS: Lactated Ringers 1,000 ML 80 ML IVCONT ×2 (12:28→23:48)
--- NOTE | 2021-06-14 15:40 | MHC.CARE ---
CARE Team is contacted by Paulina Macias NP, who conducted a psych consult with pt. Paulina recommends IPLOC when pt is medically cleared. Pt should be referred to CARE Team once medically cleared for assessment.
--- NOTE | 2021-06-14 15:52 | PM.PSYCN ---
History of Present Illness Date of Service: 06/14/2021 Chief Complaint: DEVANG Reason for Consult: capacity evaluation Requesting physician: Chase Jaeger Discussed with referring provider: Yes Sources of Information: patient interviewed, chart reviewed and crisis/core team assessment reviewed Additional Sources of Information: Collateral information provided by his sister Faby (HCP), with patient's verbal permission to call. HPI Narrative: Patient i s a 66 year-old male, with PMH of alcohol use disorder, bipolar 1 disorder, chronic back pain, COPD, HTN. He was brought in to [facility] after call from management at [facility], as patient was found by his sister lying in his own excrement in apartment, unable to walk. Sister reports that he has been extremely depressed, and has spiralled into a further depression after the of a close friend 2 weeks ago. She reported that he has not been eating, or caring for himself, and has been defecating in his bed and a bag. The apartment has been condemned by the board of health, due to rotten food, clutter, and urine / feces througout the apartment. Patient had been in the ED on 06/11 for similar issues, but had left AMA at that time. This admission, he was found to have DEVANG, hyponatremia, hypokalemia, and AMS. He was sectioned and has been admitted for medical management/treatment. A psych consult was placed due to decisional capacity concerns. Upon meeting with patient, he appears calm, cooperative, and agreeable. When asked how patient arrived at hospital, he replied that he had fallen and his sister had called 911. He gave verbal permission at that time for this justowriter operator to contact his sister, who also happens to be his HCP. Patient appears fully coherent, was alert and oriented x4. He correctly stated where he was, his full name, date, month, year, day, and location including [facility] and [facility]. No unsual movements or psychomotor changes were noted. Speech appeared to having normal rate, tone, and volume, without any poverty or pressure. Once questions focused on his mental health and alcohol, he became dismissive, with an irritable edge. Patient denies any depression / anxiety, however affect flat. He denied any type of thought of self-harm, denies any type of hallucinations. Memory impaired, and patient appeared to confabulate during encounter. Insight and judgment poor at this time. He denied any type of diagnosis of bipolar disorder, depression, anxiety. However in chart it is noted that patient has had several admissions to a[facility]. [facility] and was treated with various psychiatric medications at those times, as well as ECT. He also denied any issues with alcohol use disorder, although he does state that he drinks approximately 6-8 beers daily as well as shots of whiskey. He did deny any type of alcohol withdrawals at this time. He had difficulty with attention, and appeared depressed. A MOCA was performed, and patient scored 21 out of 30 (mild cognitive impairment). His last MOCA administered while inpatient on M 5 in 2014 he scored a 27. Today's scoring suggests prefrontal region of frontal lobe impairment, which could be directly related to chronic alcohol consumption. Today's results are as follows: 1. Visuospatial/executive function scored 0/5. Unable to complete alternating [place] making and visual constructional skills (cube, clock). 2. Able to name objects correctly. 3. Poor recall after 5 minutes. 4. Attention: good attention and serial 7 subtraction. 5. Full orientation to date, place, etc. As per sister, she reports that patient has a long history of mental health issues as well as alcohol use disorder. She reports that she had received multiple calls when patient was recently in this facility and had left AMA, so she decided to visit patient. [facility], she found him lying in mattress, covered in feces. She reports that patient also has a hoarding disorder with severe OCD and anxiety, and that she found multiple items throughout apartment, including rotten food both in the apartment as well as in the refrigerator. She found the bathroom full of feces. She found patient covered in filth, and it appeared that he had not been attending to ADLs or eating for some time. She also found empty alcohol containers in unit. She reports that he has not overtly tried to commit suicide in the past, but that he rather chooses suicide by self neglect, and and ?drinking himself to ?. She reports that he has no regard for his life, and has stated this. She reports that he has had episodes throughout his life of extreme brenda and grandiosity, which quickly spiral into deep depression. She reports that although he had been referred to outpatient treatment upon his discharge from here in 2014, he only went to appointments several times before stopping. She reports that he did not continue with any medications at that time either. She reports that his most recent episode of brenda was approximately 3 months ago. Patient normally calls her daily, as he cyles through the brenda into depression. She reports that a very close friend of his since childhood 2 weeks ago, and he spiralled into a deep depression, remaining in bed, drinking, and not eating, by himself. She reports a significant weight loss, stating that several years ago he weighed 270 lb. Past Psychiatric History: Patient , denies any type of history of mental health treatment. Chart reveals 2 IPLOC on M5 in 2014, hx of multiple psych meds and ECT. Sister reports ILPOC at [facility] 4 years ago. Patient had outpatient psychiatrist at [facility] at 1 time. Medical Evaluation Reviewed: Yes Personal & Social History: Patient grew up the youngest of 4 children, nearest sibling was 11 years older. Has 2 older sisters, 1 older brother. Raised by both parents, supportive environment. Describes his relationship with siblings as close. Met all milestones as expected. Attended [employer], dropped out due to alcohol and mental illness. Lives by self in [facility] in senior living community. Review of Systems Constitutional: Reports as per HPI and Reports lethargy Eyes: Reports as per HPI Reports as per HPI and Reports Normal hearing present Cardiovascular: Reports as per HPI Respiratory: Reports as per HPI and Reports no additional respiratory complaints Gastrointestinal: Reports as per HPI and Reports no additional gastrointestinal complaints Genitourinary: Reports no additional male genitourinary complaints and Reports as per HPI Musculoskeletal: Reports as per HPI and Reports back pain Skin/Breast: Reports as per HPI Reports Normal hearing present and Reports confusion Psychiatric: Reports anxiety, Reports change in appetite, Reports confusion, Reports depression and Reports difficulty concentrating Endocrine: Reports no additional endocrine complaints and Reports as per HPI Hematologic/Lymphatic: Reports as per HPI Allergic/Immunologic: Reports as per HPI [facility], [facility] Medical History Alcoholism Bipolar 1 disorder Chronic back pain COPD (chronic obstructive pulmonary disease) HTN (hypertension) Family History: unknown Social History: [facility]. raised by both parents, has 3 older siblings, closest in age is 11 years older. Retired/unemployed Substance History: Patient denies any issue with substance use, sister reports longstanding alcohol use disorder. DUI 4 years ago, patient lost license. Was hospitalized due to alcohol intoxication, subsequently was intubated at that time. Trauma History: unknown Diagnostics Vital Signs (24Hr): Vital Signs - 24 hr 06/13/21 17:49 06/13/21 19:27 06/13/21 23:27 Temperature 97.3 F 97 F 97.1 F Pulse Rate 72 84 82 Respiratory Rate 18 18 16 Blood Pressure 94/62 101/58 L 98/62 Pulse Oximetry 98 99 98 06/14/21 03:13 06/14/21 07:20 06/14/21 07:42 Temperature 96.1 F L Pulse Rate 73 78 78 Respiratory Rate 18 16 Blood Pressure 96/64 91/60 Pulse Oximetry 94 96 06/14/21 11:14 06/14/21 15:40 Temperature 97.4 F 98 F Pulse Rate 80 76 Respiratory Rate 18 18 Blood Pressure 93/52 L 98/60 Pulse Oximetry 95 98 Body Mass Index 20.6 Labs Results: 06/14/21 05:57 06/14/21 05:57 Labs: Laboratory Results - last 48 hr 06/13/21 06/13/21 06/13/21 14:26 14:26 14:26 WBC 12.1 H RBC 5.81 H Hgb 18.5 H Hct 49.3 MCV 84.9 MCH 31.8 MCHC 37.5 H RDW 13.1 Plt Count 173 MPV 9.3 L Immature Gran % (Auto) 1.3 H Neut % (Auto) 82.2 H Lymph % (Auto) 10.5 L [place] % (Auto) 5.6 Eos % (Auto) 0.2 Baso % (Auto) 0.2 Lymph # (Auto) 1.3 [place] # (Auto) 0.7 Eos # (Auto) 0.0 Baso # (Auto) 0.0 Abs Immat Gran (auto) 0.16 H Absolute Neuts (auto) 9.9 H Absolute Nucleated RBC 0.050 H Nucleated RBC % (auto) 0.4 H PT 12.4 INR 1.1 APTT 27.3 VBG pH VBG pCO2 VBG pO2 VBG HCO3 VBG O2 Saturation VBG Base Excess Sodium Potassium Chloride Carbon Dioxide Anion Gap BUN Creatinine Estim Creat Clear Calc Estimated GFR Random Glucose Fasting Glucose Lactic Acid Lactic Acid Fup @ 2Hr Lactic Acid Fup @ 4Hr Calcium Magnesium Total Bilirubin Direct Bilirubin AST ALT Alkaline Phosphatase Ammonia Total Creatine Kinase Troponin I High Sens Total Protein Albumin Lipase TSH Urine Color Urine Appearance Urine pH Ur Specific Jackson Urine Protein Urine Glucose (UA) Urine Ketones Urine Blood Urine Nitrite Ur Leukocyte Esterase Urine RBC Urine WBC Ur Squamous Epith Cells Urine Bacteria Hyaline Casts Urine Osmolality Ur Random Sodium Ur Random Potassium Ur Random Chloride Urine Opiates Screen Urine Fentanyl Screen Ur Barbiturates Screen Ur Phencyclidine Scrn Ur Amphetamines Screen U Benzodiazepines Scrn Urine Cocaine Screen U Marijuana (THC) Screen Ethyl Alcohol COVID-19 (TOMY) Negative COVID-19 Clin Com See Note 06/13/21 06/13/21 06/13/21 14:26 14:27 14:27 WBC RBC Hgb Hct MCV MCH MCHC RDW Plt Count MPV Immature Gran % (Auto) Neut % (Auto) Lymph % (Auto) [place] % (Auto) Eos % (Auto) Baso % (Auto) Lymph # (Auto) [place] # (Auto) Eos # (Auto) Baso # (Auto) Abs Immat Gran (auto) Absolute Neuts (auto) Absolute Nucleated RBC Nucleated RBC % (auto) PT INR APTT VBG pH VBG pCO2 VBG pO2 VBG HCO3 VBG O2 Saturation VBG Base Excess Sodium 124 L Potassium 2.9 L Chloride 85 L Carbon Dioxide 20 L Anion Gap 22 H BUN 69 H D Creatinine 2.13 H Estim Creat Clear Calc 35.2 Estimated GFR 31 Random Glucose 109 Fasting Glucose Lactic Acid 2.9 H* Lactic Acid Fup @ 2Hr Lactic Acid Fup @ 4Hr Calcium 9.2 Magnesium 3.4 H Total Bilirubin 2.2 H Direct Bilirubin 1.3 H AST 36 ALT 33 Alkaline Phosphatase 129 H Ammonia Total Creatine Kinase 73 Troponin I High Sens Total Protein 7.4 Albumin 3.7 Lipase 99 H TSH Urine Color Urine Appearance Urine pH Ur Specific Jackson Urine Protein Urine Glucose (UA) Urine Ketones Urine Blood Urine Nitrite Ur Leukocyte Esterase Urine RBC Urine WBC Ur Squamous Epith Cells Urine Bacteria Hyaline Casts Urine Osmolality Ur Random Sodium Ur Random Potassium Ur Random Chloride Urine Opiates Screen Urine Fentanyl Screen Ur Barbiturates Screen Ur Phencyclidine Scrn Ur Amphetamines Screen U Benzodiazepines Scrn Urine Cocaine Screen U Marijuana (THC) Screen Ethyl Alcohol < 10 COVID-19 (TOMY) COVID-19 Clin Com 06/13/21 06/13/21 06/13/21 14:27 14:27 14:27 WBC RBC Hgb Hct MCV MCH MCHC RDW Plt Count MPV Immature Gran % (Auto) Neut % (Auto) Lymph % (Auto) [place] % (Auto) Eos % (Auto) Baso % (Auto) Lymph # (Auto) [place] # (Auto) Eos # (Auto) Baso # (Auto) Abs Immat Gran (auto) Absolute Neuts (auto) Absolute Nucleated RBC Nucleated RBC % (auto) PT INR APTT VBG pH VBG pCO2 VBG pO2 VBG HCO3 VBG O2 Saturation VBG Base Excess Sodium Potassium Chloride Carbon Dioxide Anion Gap BUN Creatinine Estim Creat Clear Calc Estimated GFR Random Glucose Fasting Glucose Lactic Acid Lactic Acid Fup @ 2Hr Lactic Acid Fup @ 4Hr Calcium Magnesium Total Bilirubin Direct Bilirubin AST ALT Alkaline Phosphatase Ammonia 37 Total Creatine Kinase Troponin I High Sens 5.7 Total Protein Albumin Lipase TSH 0.97 Urine Color Urine Appearance Urine pH Ur Specific Jackson Urine Protein Urine Glucose (UA) Urine Ketones Urine Blood Urine Nitrite Ur Leukocyte Esterase Urine RBC Urine WBC Ur Squamous Epith Cells Urine Bacteria Hyaline Casts Urine Osmolality Ur Random Sodium Ur Random Potassium Ur Random Chloride Urine Opiates Screen Urine Fentanyl Screen Ur Barbiturates Screen Ur Phencyclidine Scrn Ur Amphetamines Screen U Benzodiazepines Scrn Urine Cocaine Screen U Marijuana (THC) Screen Ethyl Alcohol COVID-19 (TOMY) COVID-19 GVISP 1 06/13/21 06/13/21 06/13/21 14:40 16:49 20:14 WBC RBC Hgb Hct MCV MCH MCHC RDW Plt Count MPV Immature Gran % (Auto) Neut % (Auto) Lymph % (Auto) [place] % (Auto) Eos % (Auto) Baso % (Auto) Lymph # (Auto) [place] # (Auto) Eos # (Auto) Baso # (Auto) Abs Immat Gran (auto) Absolute Neuts (auto) Absolute Nucleated RBC Nucleated RBC % (auto) PT INR APTT VBG pH 7.57 H VBG pCO2 25 VBG pO2 114 VBG HCO3 23 VBG O2 Saturation 98.0 VBG Base Excess 3.7 Sodium 127 L Potassium 3.4 Chloride 90 L Carbon Dioxide 26 Anion Gap 14 BUN 58 H Creatinine 1.76 H Estim Creat Clear Calc 42.6 Estimated GFR 39 Random Glucose 119 H Fasting Glucose Lactic Acid Lactic Acid Fup @ 2Hr 2.7 H* Lactic Acid Fup @ 4Hr Calcium 8.3 L D Magnesium Total Bilirubin Direct Bilirubin AST ALT Alkaline Phosphatase Ammonia Total Creatine Kinase Troponin I High Sens Total Protein Albumin Lipase TSH Urine Color Urine Appearance Urine pH Ur Specific [place] Urine Protein Urine Glucose (UA) Urine Ketones Urine Blood Urine Nitrite Ur Leukocyte Esterase Urine RBC Urine WBC Ur Squamous Epith Cells Urine Bacteria Hyaline Casts Urine Osmolality Ur Random Sodium Ur Random Potassium Ur Random Chloride Urine Opiates Screen Urine Fentanyl Screen Ur Barbiturates Screen Ur Phencyclidine Scrn Ur Amphetamines Screen U Benzodiazepines Scrn Urine Cocaine Screen U Marijuana (THC) Screen Ethyl Alcohol COVID-19 (TOMY) COVIDSt. Renatus 06/13/21 06/13/21 06/13/21 20:14 22:20 22:20 WBC RBC Hgb Hct MCV MCH MCHC RDW Plt Count MPV Immature Gran % (Auto) Neut % (Auto) Lymph % (Auto) [place] % (Auto) Eos % (Auto) Baso % (Auto) Lymph # (Auto) [place] # (Auto) Eos # (Auto) Baso # (Auto) Abs Immat Gran (auto) Absolute Neuts (auto) Absolute Nucleated RBC Nucleated RBC % (auto) PT INR APTT VBG pH VBG pCO2 VBG pO2 VBG HCO3 VBG O2 Saturation VBG Base Excess Sodium Potassium Chloride Carbon Dioxide Anion Gap BUN Creatinine Estim Creat Clear Calc Estimated GFR Random Glucose Fasting Glucose Lactic Acid Lactic Acid Fup @ 2Hr Lactic Acid Fup @ 4Hr 1.6 Calcium Magnesium Total Bilirubin Direct Bilirubin AST ALT Alkaline Phosphatase Ammonia Total Creatine Kinase Troponin I High Sens Total Protein Albumin Lipase TSH Urine Color DARK YELLOW Urine Appearance CLEAR Urine pH 5.5 Ur Specific Jackson 1.015 Urine Protein NEG Urine Glucose (UA) NEG Urine Ketones NEG Urine Blood TRACE Urine Nitrite NEG Ur Leukocyte Esterase NEG Urine RBC 1-4 Urine WBC 0-2 Ur Squamous Epith Cells NONE Urine Bacteria NONE Hyaline Casts 1-4 Urine Osmolality Ur Random Sodium Ur Random Potassium Ur Random Chloride Urine Opiates Screen Not Detected Urine Fentanyl Screen Not Detected Ur Barbiturates Screen Not Detected Ur Phencyclidine Scrn Not Detected Ur Amphetamines Screen Not Detected U Benzodiazepines Scrn Not Detected Urine Cocaine Screen Not Detected U Marijuana (THC) Screen Not Detected Ethyl Alcohol COVID-19 (TOMY) COVID-19 GVISP 1 06/13/21 06/13/21 06/14/21 22:20 22:20 05:57 WBC 9.0 RBC 4.86 Hgb 15.4 Hct 42.4 MCV 87.2 MCH 31.7 MCHC 36.3 H RDW 13.1 Plt Count 126 L D MPV 9.9 Immature Gran % (Auto) Neut % (Auto) Lymph % (Auto) [place] % (Auto) Eos % (Auto) Baso % (Auto) Lymph # (Auto) [place] # (Auto) Eos # (Auto) Baso # (Auto) Abs Immat Gran (auto) Absolute Neuts (auto) Absolute Nucleated RBC 0.020 H Nucleated RBC % (auto) 0.2 PT INR APTT VBG pH VBG pCO2 VBG pO2 VBG HCO3 VBG O2 Saturation VBG Base Excess Sodium Potassium Chloride Carbon Dioxide Anion Gap BUN Creatinine Estim Creat Clear Calc Estimated GFR Random Glucose Fasting Glucose Lactic Acid Lactic Acid Fup @ 2Hr Lactic Acid Fup @ 4Hr Calcium Magnesium Total Bilirubin Direct Bilirubin AST ALT Alkaline Phosphatase Ammonia Total Creatine Kinase Troponin I High Sens Total Protein Albumin Lipase TSH Urine Color Urine Appearance Urine pH Ur Specific [place] Urine Protein Urine Glucose (UA) Urine Ketones Urine Blood Urine Nitrite Ur Leukocyte Esterase Urine RBC Urine WBC Ur Squamous Epith Cells Urine Bacteria Hyaline Casts Urine Osmolality 594 Ur Random Sodium < 20.0 Ur Random Potassium 38.0 Ur Random Chloride < 20.0 Urine Opiates Screen Urine Fentanyl Screen Ur Barbiturates Screen Ur Phencyclidine Scrn Ur Amphetamines Screen U Benzodiazepines Scrn Urine Cocaine Screen U Marijuana (THC) Screen Ethyl Alcohol COVID-19 (TOMY) COVID-19 Clin Com 06/14/21 05:57 WBC RBC Hgb Hct MCV MCH MCHC RDW Plt Count MPV Immature Gran % (Auto) Neut % (Auto) Lymph % (Auto) [place] % (Auto) Eos % (Auto) Baso % (Auto) Lymph # (Auto) [place] # (Auto) Eos # (Auto) Baso # (Auto) Abs Immat Gran (auto) Absolute Neuts (auto) Absolute Nucleated RBC Nucleated RBC % (auto) PT INR APTT VBG pH VBG pCO2 VBG pO2 VBG HCO3 VBG O2 Saturation VBG Base Excess Sodium 129 L Potassium 3.4 Chloride 91 L Carbon Dioxide 28 Anion Gap 13 BUN 51 H Creatinine 1.46 H Estim Creat Clear Calc 51.3 Estimated GFR 48 Random Glucose Fasting Glucose 105 H Lactic Acid Lactic Acid Fup @ 2Hr Lactic Acid Fup @ 4Hr Calcium 8.3 L Magnesium Total Bilirubin Direct Bilirubin AST ALT Alkaline Phosphatase Ammonia Total Creatine Kinase Troponin I High Sens Total Protein Albumin Lipase TSH Urine Color Urine Appearance Urine pH Ur Specific [place] Urine Protein Urine Glucose (UA) Urine Ketones Urine Blood Urine Nitrite Ur Leukocyte Esterase Urine RBC Urine WBC Ur Squamous Epith Cells Urine Bacteria Hyaline Casts Urine Osmolality Ur Random Sodium Ur Random Potassium Ur Random Chloride Urine Opiates Screen Urine Fentanyl Screen Ur Barbiturates Screen Ur Phencyclidine Scrn Ur Amphetamines Screen U Benzodiazepines Scrn Urine Cocaine Screen U Marijuana (THC) Screen Ethyl Alcohol COVID-19 (TOMY) COVID-19 Clin Com Imaging Radiology Impressions: ITS Impressions Cervical Spine CT 06/13/21 13:34 IMPRESSION: No acute bony abnormality or prevertebral soft tissue swelling. Chest CT 06/13/21 13:34 IMPRESSION: 1. Diffuse moderate centrilobular and paraseptal emphysema. Mild atelectasis or scarring in the lingula. 2. Moderate elevation of the left hemidiaphragm. 3. Moderate compression deformity of the L1 vertebral body of indeterminate age. Head CT 06/13/21 13:34 IMPRESSION: No acute intracranial abnormality. Mental Status Exam Mental Status Exam Narrative: Unkempt, thin male, in NAD. Poor grooming, dressed in hospital garb. A&OX4. Patient Appearance: Disheveled and Unkempt Patient Orientation: Person, Place, Time and Situation Level of Consciousness: Awake and Alert Patient Behavior: Appropriate, Good Eye Contact and Uncooperative (irritable, dismissive) Mood Description: Calm ( I'm fine ) Affect Description: Depressed, Anxious, Labile and Angry Patient Cognition Impaired: Yes Ability to Follow Directions: Fair Speech Pattern: Appropriate, Coherent and Cofabulation Memory Description: Remote Impaired, Immediate Impaired and Working Impaired Hallucinations: None Delusions: Not Present Thought Process: Goal Oriented ( I want to go home ) and Slowed Thinking Thought Content: positive for Disorganized and positive for Evasive Depressive Symptoms: Increased Anxiety, Significant Weight Loss, Loss of Int. in Activity, Isolating-Friends/Family, Increased Fatigue, Difficulty Concentrating and Back Pain Judgement: Poor Medications Medications Current Medications Generic Name Dose Route Start Last Admin Trade Name Freq PRN Reason Stop Dose Admin Albuterol/Ipratropium 3 ml 06/14/21 08:00 06/14/21 07:37 Albuterol/Iprat 2.5/0.5mg 3 Ml Ampul.Neb INHALE 3 ml RDAILY DIANE Administration Folic Acid 1 mg 06/14/21 09:00 06/14/21 08:28 Folic Acid 1 Mg Tablet PO 1 mg DAILY DIANE Administration Heparin Sodium (Porcine) 5,000 unit 06/13/21 17:00 06/14/21 08:28 Heparin Sodium,Porcine 5,000 Unit/Ml Vial SUBCUT 5,000 unit Q8H DIANE Administration Lactated Ringer's 1,000 mls @ 80 mls/hr 06/13/21 16:30 06/14/21 12:28 Lr IVCONT 80 mls/hr .[id number] DIANE Administration Melatonin 6 mg 06/13/21 19:43 06/13/21 20:06 Melatonin 3 Mg Tablet PO 6 mg BEDTIME PRN Administration Insomnia Multivitamins/Minerals 1 tab 06/14/21 09:00 06/14/21 08:27 Multivitamin With Minerals Tablet PO 1 tab DAILY DIANE Administration Nicotine 21 mg 06/14/21 15:20 Nicotine 21 Mg Patch.[id number] TRANSDERMA DAILY [facility] Pharmacy Consult 1 each 06/13/21 13:34 Consult Rx Perform Med Rec MISCELLANE ONCE PRN Consult order Sodium Chloride 3 ml 06/14/21 00:00 06/14/21 08:30 0.9 % Sodium Chloride Flush 3 Ml Syringe IVFLUSH Not Given QSHIFT [facility] Thiamine HCl 100 mg 06/14/21 09:00 06/14/21 08:28 Thiamine Hcl 100 Mg Tablet PO 100 mg DAILY DIANE Administration Allergies Allergies Allergy/AdvReac Type Severity Reaction Status Date / Time ibuprofen [IBUPROFEN] Allergy Severe ANAPHYLAXIS Verified 06/11/21 14:23 cat dander [CATS] Allergy Unknown UNKNOWN Verified 06/11/21 14:23 dog dander [DOGS] Allergy Unknown UNKNOWN Verified 06/11/21 14:23 Assessment & Plan Assessment & Plan (1) Bipolar disorder, current episode depressed, severe, without psychotic features: Status: Acute Code(s): F31.4 - Bipolar disorder, current episode depressed, severe, without psychotic features Assessment and Plan: As per history obtained via chart, patient has diagnosis of bipolar 1 disorder with several inpatient stays here on and 5, along with multiple medication trials and ECT treatment. Patient is not forthcoming regarding any depressive symptoms, and appears to lack comprehension of the severity of both his depression and his alcohol use disorder. He is currently unable to care for himself at this time due to severe depression symptoms. (2) Alcohol use disorder, severe, dependence: Status: Acute Code(s): F10.20 - Alcohol dependence, uncomplicated Assessment and Plan: Patient denies any type of alcohol use disorder. However, through chart review, it appears patient has been admitted several times and has been treated for alcohol use disorder. He does acknowledge that he drinks between 6-8 beers daily as well as hard liquor multiple shots daily. He is currently on CIWA protocol, scoring 1-0 at this time. Patient also has thiamine, folate, multivitamin ordered. MOCA is suggestive of prefrontal region of frontal lobe with mild impairment, which could possibly be related to chronic alcohol abuse. Assessment and Plan: Patient appears to be severely depressed at this time, and is incapable of caring for himself. He appears to have untreated bipolar disorder, with current episode severely depressed. He appears to have limited memory, and appears to be confabulating when asked direct questions regarding his history and care. He is also displaying no insight into his mental health or alcohol use disorder. He reports that he is going home soon, and appears oblivious to the circumstances of his admission. Recommendations: 1. Patient's cognitive performance appears sufficiently impaired by his severe depressive symptoms, and he is currently assessed as lacking in decisional capacity for medical decisions. 2. HCP or alternate medical decision maker should be invoked. 3. This is a fluid circumstance, and the opinion may need to be updated if conditions are perceived to have changed. 4. Once medically cleared, patient should be referred to CARE Team for evaluation for IPLOC. I have shared my thoughts and recommendations with both Dr. Chase Jaeger and CARE juice bar team member, via secure messaging / phone. Thank you for this consultation. If any further questions or concerns, please do not hesitate to contact us. Greater than 50% of the session was spent on counseling and/or coordination of care
[2021-06-14] MEDS: Nicotine 21 MG PATCH.TD24 TRANSDERMA (16:21)
--- NOTE | 2021-06-14 23:47 | P.EN_ITS ---
Event Note Date of Service: 06/14/21 Event Note: Bacteremia: Blood cultures growing Gram-positive cocci. Final cu ltures pending. Will start with empiric vancomycin IV.
--- NOTE | 2021-06-14 23:47 | PM.EVENT ---
Event Note Date of Service: 06/14/21 Event Note: Bacteremia: Blood cultures growing Gram-positive cocci. Final cultures pending. Will start with empiric vancomycin IV.
[2021-06-15] VITALS (8 sets, daily range): BP systolic 84–92; BP diastolic 48–60; PULSE 57–76; RESP 16–18; TEMP 36.2–37.1; O2SAT 95–98
[2021-06-15] MEDS: vancomycin HCL 1,000 MG in 0.9 % Sodium Chloride 250 ML 270 MG IV (00:55)
[2021-06-15] MEDS: Heparin Sodium,Porcine 5,000 UNIT/ML VIAL 5000 UNIT SUBCUT ×3 (02:17→16:50)
[2021-06-15 07:25] LABS: Mean Corpuscular HGB Conc 35.7 g/dl (31.0-36.0); Mean Corpuscular Hemoglobin 31.7 pg (27.0-33.0); Red Cell Distribution Width 13.1 % (11.0-16.0)
[2021-06-15 07:27] LABS: Hematocrit 36.1 % (42-52); Hemoglobin 12.9 g/dl (14.0-18.0); Mean Corpuscular Volume 88.7 fL (80-98); Mean Platelet Volume 9.7 fL (9.4-12.4); Red Blood Count 4.07 X10*6/uL (4.60-5.80)
[2021-06-15 07:28] LABS: Platelet Count 94 X10*3/uL (160-400)
[2021-06-15 07:52] LABS: Blood Urea Nitrogen 23 mg/dL (9-16); Calcium 8.4 mg/dL (8.4-10.2); Creatinine Clr Calc Pharmacy 87.2; Estimated Glomerular Filt Rate > 60; Glucose Fasting 101 mg/dL (60-99)
[2021-06-15 08:00] LABS: Anion Gap 10 (12-20); Carbon Dioxide 27 mmol/L (22-29); Chloride 97 mmol/L (96-108); Potassium 2.8 mmol/L (3.3-5.1); Sodium 131 mmol/L (135-145)
[2021-06-15] MEDS: Thiamine HCL 100 MG TABLET PO (08:22)
[2021-06-15] MEDS: Potassium Chloride ER 20 MEQ TAB.ER.PRT 40 MEQ PO (08:22)
[2021-06-15] MEDS: Folic Acid 1 MG TABLET PO (08:22)
[2021-06-15] MEDS: Nicotine 21 MG PATCH.TD24 TRANSDERMA (08:23)
[2021-06-15] MEDS: Lactated Ringers 1,000 ML 80 ML IVCONT (08:24)
[2021-06-15] MEDS: Albuterol/Iprat 2.5/0.5MG 3 ML AMPUL.NEB INHALE (08:59)
--- NOTE | 2021-06-15 09:29 | CONS_ITS ---
DATE OF SERVICE: 06/14/2021 REASON FOR CONSULTATION: I was called to see this patient to assist in the management of hyponatremia and acute kidney injury. HISTORY OF PRESENT ILLNESS: To summarize, Dat is a 66-year-old man who was brought in because of confused state and he was found to have acute kidney injury with hyponatremia. He was admitted on June 13. Serum sodium was 127 at the time of admission with a serum creatinine of 1.76. Overnight, sodium was increased to 129 and the creatinine has decreased to 1.46 with hydration. This morning, he was more awake, he tells me that he has been drinking vodka, and drinks about 4 or 5 drinks a day. He has had no urinary symptoms. He denies any polyuria, polydipsia. PAST MEDICAL HISTORY: Ongoing medical problems include history of alcoholism, bipolar disorder, COPD, hypertension, chronic back pain. SOCIAL HISTORY: Alcohol intake daily. He also uses tobacco. No history of any drug abuse. ALLERGIES: HE IS ALLERGIC TO IBUPROFEN. MEDICATIONS: All the home medications were reviewed. The current medications were reviewed as well. REVIEW OF SYSTEMS: Obtained from the patient. He has no headache, nausea, vomiting. No abdominal pain, diarrhea, or constipation. No urinary symptoms. No fever. No rash. PHYSICAL EXAMINATION: GENERAL: The patient is a middle aged man, he is awake, comfortable, not in any distress. NECK: Supple. No JVD. Mucosa is dry. LUNGS: Air entry equal. No rales. HEART: S1, S2 heard. No gallop. ABDOMEN: Soft, nontender. EXTREMITIES: No edema. VITAL SIGNS: Blood pressure today was 91/60, pulse 78, and temperature 96.1. LABORATORY DATA: Sodium 129, potassium 3.4, BUN 51, creatinine 1.46, potassium 8.3. Head CT was unremarkable. Urine studies showed no protein, no blood per dipstick. Urine sodium less than 20, urine chloride less than 20. Specific gravity, urine osmolality 594. IMPRESSION: A 66-year-old man with acute kidney injury and hyponatremia. Baseline urine sodium and osmolality, it appears that Dat has hypovolemic hyponatremia. Alcohol might be playing a role by decreasing the free water clearance. My recommendation will be to continue with IV hydration with Ringers lactate. Keep intake more than the output. Avoid hypotension. Continue to monitor urine output. Goal is to cut the serum sodium at a rate of 0.5 millimoles per liter per hour and not to exceed more than 10 millimoles in 24 hour. The renal function is already improving. He might develop hypokalemia, which needs to be replaced as needed. There is no indication for hypertonic saline at this point. We will continue to follow him along with the team. Andres Kyle MD BPA/MODL / [id number]
--- NOTE | 2021-06-15 09:59 | PM.PNNEP ---
Subjective Subjective Date of Service: 06/15/21 Interval history: More awake no complaints Physical Exam Vital Signs: Vital Signs: Last Vital Signs Temp 97.2 F 06/15/21 07:20 Pulse 57 06/15/21 09:02 Resp 18 06/15/21 07:20 BP 90/50 L 06/15/21 07:20 Pulse Ox 95 06/15/21 07:20 Body Mass Index 20.6 Neck: Neck: Yes no JVD Resp: Auscultation: clear to auscultation bilaterally Cardio: Jugular venous distension: no JVD Palpation: no palpable S3 Heart sounds: no rubs GI: Inspection: Yes normal to inspection Auscultation: normal bowel sounds Neuro: Motor exam (neuro): No Asterixis during motor activity present Objective Data Labs CBC & Chem 7: 06/15/21 06:24 06/15/21 06:24 Labs: Laboratory Results - last 24 hr 06/15/21 06/15/21 06:24 06:24 WBC 6.0 RBC 4.07 L Hgb 12.9 L Hct 36.1 L MCV 88.7 MCH 31.7 MCHC 35.7 RDW 13.1 Plt Count 94 L D MPV 9.7 Absolute Nucleated RBC 0.000 Nucleated RBC % (auto) 0.0 Sodium 131 L Potassium 2.8 L Chloride 97 Carbon Dioxide 27 Anion Gap 10 L BUN 23 H D Creatinine 0.86 Estim Creat Clear Calc 87.2 Estimated GFR > 60 Fasting Glucose 101 H Calcium 8.4 Microbiology Microbiology Results: Microbiology 06/13/21 14:27 Blood - Venous Blood Culture - Preliminary Gram positive cocci 06/13/21 14:27 Blood - Venous Blood Culture - Preliminary No growth after 24 hours. Procedures Date of Service Date of Service: 06/15/21 Assessment & Plan Assessment and plan (1) DEVANG (acute kidney injury): Status: Acute (2) Acute hyponatremia: Status: Acute Assessment and Plan: Hypovolemic hyponatremia nd DEVANG Due to hypovolemia Na is improving Rate of correction acceptable Renal fx is better NO s/s of uremia Keep I > O REstrict PO water intake Replace K orally Time Spent With Patient Time: Total time spent is greater than 50% in coordination of care (as documented) at patient's floor/unit and/or counseling patient: Time with patient: 15 - 24 minutes Progress Note: Quality Stroke Does the patient have a stroke diagnosis?: No
--- NOTE | 2021-06-15 10:10 | P.EN_ITS ---
Event Note Date of Service: 06/15/21 Event Note: Met with patient this morning as a brief follow-up. Disheveled, r eclining in bed, wearing hospital garb. States he did remember me, however did not recall my name. Flat affect, describes mood as ?so-so . . Discussed disposition with behavioral health case manager. Reported that sister has stated he will be allowed to return home after hospitalization, as long as he is agreeable to receiving in-home services. His apartment is currently being sanitized, as it is was condemned by [facility]. This senior mortgage underwriter informed case management that recommendation was made yesterday to invoke healthcare proxy, and to be evaluated by care team for possible geriatric psych placement due to extreme depression and self neglect.
--- NOTE | 2021-06-15 11:50 | P.PNIM_ITS ---
Subjective Subjective Date of Service: 06/15/21 Interval History: no complaints Cardiovascular Cardiovascular: Reports no additional cardiovascular complaints Respiratory Respiratory: Reports no additional respiratory complaints Physical Exam Vital Signs: Vital Signs: Last Vital Signs Temp 97.6 F 06/15/21 11:35 Pulse 76 06/15/21 11:35 Resp 18 06/15/21 11:35 BP 86/48 L 06/15/21 11:35 Pulse Ox 95 06/15/21 11:35 Body Mass Index 20.6 General: AO X 2, no acute distress Resp:? CTA bilateral CVS: S1,S2,RRR GI: soft, non tender, non distended Neuro:? motor grossly intact Psych: impaired insight Objective Data Active Medications Albuterol/Ipratropium (Albuterol/Iprat 2.5/0.5mg 3 Ml Ampul.Neb) 3 ml INHALE RDAILY [facility] Last Admin: 06/15/21 08:59 Dose: 3 ml Documented by: EVE Folic Acid (Folic Acid 1 Mg Tablet) 1 mg PO DAILY [facility] Last Admin: 06/15/21 08:22 Dose: 1 mg Documented by: STEVE Heparin Sodium (Porcine) (Heparin Sodium,Porcine 5,000 Unit/Ml Vial) 5,000 unit SUBCUT Q8H [facility] Last Admin: 06/15/21 08:22 Dose: 5,000 unit Documented by: STEVE Lactated Ringer's (Lr) 1,000 mls @ 80 mls/hr IVCONT .[id number] [facility] Last Admin: 06/15/21 08:24 Dose: 80 mls/hr Documented by: STEVE Melatonin (Melatonin 3 Mg Tablet) 6 mg PO BEDTIME PRN PRN Reason: Insomnia Last Admin: 06/13/21 20:06 Dose: 6 mg Documented by: VITO Multivitamins/Minerals (Multivitamin With Minerals Tablet) 1 tab PO DAILY [facility] Last Admin: 06/15/21 08:22 Dose: 1 tab Documented by: STEVE Nicotine (Nicotine 21 Mg Patch.Td24) 21 mg TRANSDERMA DAILY [facility] Last Admin: 06/15/21 08:23 Dose: 21 mg Documented by: STEVE Pharmacy Consult (Consult Rx Perform Med Rec) 1 each MISCELLANE ONCE PRN PRN Reason: Consult order Pharmacy Consult (Consult Rx Vancomycin Dosing) 1 each MISCELLANE DAILY PRN PRN Reason: Consult order Sodium Chloride (0.9 % Sodium Chloride Flush 3 Ml Syringe) 3 ml IVFLUSH QSHIFT [facility] Last Admin: 06/15/21 08:23 Dose: Not Given Documented by: STEVE Non-Admin Reason: IV Running Thiamine HCl (Thiamine Hcl 100 Mg Tablet) 100 mg PO DAILY [facility] Last Admin: 06/15/21 08:22 Dose: 100 mg Documented by: STEVE Labs CBC & Chem 7: 06/15/21 06:24 06/15/21 06:24 Labs: Laboratory Results - last 24 hr 06/15/21 06/15/21 06:24 06:24 MCV 88.7 MCH 31.7 MCHC 35.7 RDW 13.1 Plt Count 94 L D MPV 9.7 Absolute Nucleated RBC 0.000 Nucleated RBC % (auto) 0.0 Anion Gap 10 L Estim Creat Clear Calc 87.2 Estimated GFR > 60 Fasting Glucose 101 H Calcium 8.4 Microbiology Microbiology Results: Microbiology 06/13/21 14:27 Blood Culture - Preliminary Blood - Venous Gram positive cocci 06/13/21 14:27 Blood Culture - Preliminary Blood - Venous No growth after 24 hours. Assessment and Plan (1) DEVANG (acute kidney injury): Status: Acute Assessment and Plan: 66M brought in by EMS found to be living in condemned house unable to care for himself, now confused, found to have DEVANG, hypokalemia, hyponatremia FTT DEVANG likely poor intake resolved hyopkalemia replace, monitor confusion alcohol dementia +/- acute psychosis continue b1, folate, mvi will need CARE team eval prior to discharge hyponatremia likely poor solute intake and alcohol intake improving at appropriate rate fluid restrict alcohol dependence cIWA, currently 0 thimaine, folate, mvi COPD combivent vte prophylaxis - heparin full code Quality Stroke Does the patient have a stroke diagnosis?: No VTE Prior VTE?: No VTE Risk Level:: Medical - moderate - high VTE Device Contraindication: Treatment Not Indicated VTE Drug Contraindication: N/A - Med Ordered
[2021-06-15] MEDS: 0.9 % Sodium Chloride 1,000 ML 999 ML IVCONT (14:28)
[2021-06-15] MEDS: Midodrine HCl 5 MG TABLET PO (16:49)
[2021-06-15] MEDS: 0.9 % Sodium Chloride Flush 3 ML SYRINGE IVFLUSH (16:50)
[2021-06-16] VITALS (7 sets, daily range): BP systolic 94–115; BP diastolic 49–61; PULSE 57–68; RESP 18–20; TEMP 36.2–37.1; O2SAT 97–99
[2021-06-16] MEDS: Heparin Sodium,Porcine 5,000 UNIT/ML VIAL 5000 UNIT SUBCUT ×2 (00:21→09:35)
[2021-06-16] MEDS: 0.9 % Sodium Chloride Flush 3 ML SYRINGE IVFLUSH ×2 (00:22→09:36)
[2021-06-16 06:53] LABS: Mean Corpuscular HGB Conc 35.3 g/dl (31.0-36.0); Mean Corpuscular Hemoglobin 31.8 pg (27.0-33.0); PLT CLUMP 1; Red Cell Distribution Width 13.2 % (11.0-16.0)
[2021-06-16 06:55] LABS: Hematocrit 36.3 % (42-52); Hemoglobin 12.8 g/dl (14.0-18.0); Mean Corpuscular Volume 90.1 fL (80-98); Red Blood Count 4.03 X10*6/uL (4.60-5.80)
[2021-06-16 07:02] LABS: Platelet Count 93 X10*3/uL (160-400)
[2021-06-16] MEDS: Albuterol/Iprat 2.5/0.5MG 3 ML AMPUL.NEB INHALE (08:10)
[2021-06-16 08:15] LABS: Anion Gap 13 (12-20); Blood Urea Nitrogen 14 mg/dL (9-16); Carbon Dioxide 23 mmol/L (22-29); Chloride 102 mmol/L (96-108); Creatinine Clr Calc Pharmacy 81.5; Estimated Glomerular Filt Rate > 60; Glucose Fasting 107 mg/dL (60-99); Potassium 3.3 mmol/L (3.3-5.1); Sodium 135 mmol/L (135-145)
--- NOTE | 2021-06-16 09:09 | MHC.CM.PN ---
06/16/21 Male 66 DX DEVANG DP is [facility] once patient is medically cleared. A PT eval will be ordered to evaluate safety/mobility. Pt may need STR. CM will Follow.
[2021-06-16] MEDS: Nicotine 21 MG PATCH.TD24 TRANSDERMA (09:35)
[2021-06-16] MEDS: Thiamine HCL 100 MG TABLET PO (09:35)
[2021-06-16] MEDS: Midodrine HCl 5 MG TABLET PO ×2 (09:35→12:25)
[2021-06-16] MEDS: Folic Acid 1 MG TABLET PO (09:39)
--- NOTE | 2021-06-16 10:58 | HO.PM.IMPN ---
Subjective Subjective Date of Service: 06/16/21 Interval History: no complaints Cardiovascular Cardiovascular: Reports no additional cardiovascular complaints Respiratory Respiratory: Reports no additional respiratory complaints Physical Exam Vital Signs: Vital Signs: Last Vital Signs Temp 97.1 F 06/16/21 07:56 Pulse 63 06/16/21 08:11 Resp 18 06/16/21 07:56 BP 94/49 L 06/16/21 09:35 Pulse Ox 99 06/16/21 07:56 Body Mass Index 20.6 General: AO X 2, no acute distress Resp:? CTA bilateral CVS: S1,S2,RRR GI: soft, non tender, non distended Neuro:? motor grossly intact Psych: impaired insight Objective Data Active Medications Albuterol/Ipratropium (Albuterol/Iprat 2.5/0.5mg 3 Ml Ampul.Neb) 3 ml INHALE RDAILY [facility] Last Admin: 06/16/21 08:10 Dose: 3 ml Documented by: EVE Folic Acid (Folic Acid 1 Mg Tablet) 1 mg PO DAILY [facility] Last Admin: 06/16/21 09:39 Dose: 1 mg Documented by: STEVE Heparin Sodium (Porcine) (Heparin Sodium,Porcine 5,000 Unit/Ml Vial) 5,000 unit SUBCUT Q8H [facility] Last Admin: 06/16/21 09:35 Dose: 5,000 unit Documented by: STEVE Melatonin (Melatonin 3 Mg Tablet) 6 mg PO BEDTIME PRN PRN Reason: Insomnia Last Admin: 06/13/21 20:06 Dose: 6 mg Documented by: VITO Midodrine (Midodrine Hcl 5 Mg Tablet) 5 mg PO TIDAC [facility] Last Admin: 06/16/21 09:35 Dose: 5 mg Documented by: STEVE Multivitamins/Minerals (Multivitamin With Minerals Tablet) 1 tab PO DAILY [facility] Last Admin: 06/16/21 09:39 Dose: 1 tab Documented by: STEVE Nicotine (Nicotine 21 Mg Patch.Td24) 21 mg TRANSDERMA DAILY [facility] Last Admin: 06/16/21 09:35 Dose: 21 mg Documented by: STEVE Pharmacy Consult (Consult Rx Perform Med Rec) 1 each MISCELLANE ONCE PRN PRN Reason: Consult order Pharmacy Consult (Consult Rx Vancomycin Dosing) 1 each MISCELLANE DAILY PRN PRN Reason: Consult order Sodium Chloride (0.9 % Sodium Chloride Flush 3 Ml Syringe) 3 ml IVFLUSH QSHIFT [facility] Last Admin: 06/16/21 09:36 Dose: 3 ml Documented by: STEVE Thiamine HCl (Thiamine Hcl 100 Mg Tablet) 100 mg PO DAILY [facility] Last Admin: 06/16/21 09:35 Dose: 100 mg Documented by: STEVE Labs CBC & Chem 7: 06/16/21 05:44 06/16/21 05:44 Labs: Laboratory Results - last 24 hr 06/16/21 06/16/21 05:44 05:44 MCV 90.1 MCH 31.8 MCHC 35.3 RDW 13.2 Plt Count 93 L MPV 10.0 Absolute Nucleated RBC 0.000 Nucleated RBC % (auto) 0.0 Anion Gap 13 Estim Creat Clear Calc 81.5 Estimated GFR > 60 Fasting Glucose 107 H Calcium 8.0 L Magnesium 2.0 Microbiology Microbiology Results: Microbiology 06/13/21 14:27 Blood Culture - Final Blood - Venous Coag negative Staphylococcus 06/13/21 14:27 Blood Culture - Preliminary Blood - Venous No growth after 48 hours. Assessment and Plan (1) DEVNAG (acute kidney injury): Status: Acute Assessment and Plan: 66M brought in by EMS found to be living in condemned house unable to care for himself, now confused, found to have DEVANG, hypokalemia, hyponatremia medically cleared FTT DEVANG likely poor intake resolved hypotension not due to sepsis, started midodrine, no signs of organ hypoperfusion hyopkalemia replace confusion alcohol dementia +/- acute psychosis continue b1, folate, mvi will need CARE team eval prior to discharge hyponatremia likely poor solute intake and alcohol intake resolved continue fluid restritcion alcohol dependence cIWA, currently 0 thimaine, folate, mvi COPD combivent vte prophylaxis - heparin full code Quality Stroke Does the patient have a stroke diagnosis?: No VTE Prior VTE?: No VTE Risk Level:: Medical - moderate - high VTE Device Contraindication: Treatment Not Indicated VTE Drug Contraindication: N/A - Med Ordered
--- NOTE | 2021-06-16 12:45 | PM.DS ---
DS: Providers Provider Date of Service: 06/16/21 Date of admission: 06/13/21 16:31 Primary care physician: Dilan Bishop MD Consults: 06/13/21 16:30 Consult to Nephrology Routine Consulting Provider: Andres Kyle Reason for consultation: devang, hypona 06/14/21 12:25 Consult to Psychiatry Routine Consulting Provider: William Angeles Reason for consultation: capacity eval for disposition 06/16/21 09:18 Consult to Care Team Routine Comment: Reason for consultation: bipolar DS: Diagnosis Discharge Diagnosis (1) DEVANG (acute kidney injury): Status: Acute DS: Summary Hospital Course Hospital Course: Patient was admitted for failure to thrive complicated by acute kidney injury, hypokalemia, hyponatremia. He was given IV fluids and acute kidney injury resolved. His sodium was corrected at an acceptable rate, he should continue 1800 cc per day fluid restriction. His potassium was replaced. He was noted to be hypotensive, but this was not due to sepsis and there was no sign of organ hypoperfusion he was started on midodrine with improvement. Patient was noted to be confused and had very poor insight into his medical condition. 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 He was evaluated by care team and felt to benefit from [facility] admission. Time Spent with Patient Time attestation: Total time spent providing and/or coordinating discharge services: Discharge coordination time: Greater than 30 minutes Quality: Stroke Does the patient have a stroke diagnosis?: No Physical Exam Vital Signs: Vital Signs: Last Vital Signs Temp 97.5 F 06/16/21 11:11 Pulse 67 06/16/21 11:11 Resp 20 06/16/21 11:11 BP 103/57 L 06/16/21 12:25 Pulse Ox 97 06/16/21 11:11 Body Mass Index 20.6 General: AO X 2, no acute distress Resp:? CTA bilateral CVS: S1,S2,RRR GI: soft, non tender, non distended Neuro:? motor grossly intact Psych: impaired insight DS: Data Data Completed and Pending Labs on day of discharge: Laboratory Results - last 24 hr 06/16/21 06/16/21 05:44 05:44 WBC 6.0 RBC 4.03 L Hgb 12.8 L Hct 36.3 L MCV 90.1 MCH 31.8 MCHC 35.3 RDW 13.2 Plt Count 93 L MPV 10.0 Absolute Nucleated RBC 0.000 Nucleated RBC % (auto) 0.0 Sodium 135 Potassium 3.3 Chloride 102 Carbon Dioxide 23 Anion Gap 13 BUN 14 Creatinine 0.92 Estim Creat Clear Calc 81.5 Estimated GFR > 60 Fasting Glucose 107 H Calcium 8.0 L Magnesium 2.0 Preliminary micro results at discharge 06/13/21 14:27 Blood Culture - Preliminary Blood - Venous No growth after 48 hours. Discharge Plan Discharge Disposition: Xfer Other Referrals: Dilan Bishop MD [Primary Care Provider] - 1 Week Discharge Medications: No Action Combivent Respimat 20-100 mcg/actuation Mist 1 puff INHALATION DAILY RF: 0 Discharge Orders: Discharge Order (Routine); Ordered 06/16/21 Ordered By: Chase Jaeger Forms: Patient Portal Discharge page Care Plan Goals: recovery Health Concerns: confusion Plan of Treatment: [facility] Assessment: see above
--- NOTE | 2021-06-16 14:08 | P.PNNP_ITS ---
Subjective Subjective Date of Service: 06/16/21 Interval history: no complaints seen and examined no complaints Physical Exam Vital Signs: Vital Signs: Last Vital Signs Temp 97.5 F 06/16/21 11:11 Pulse 67 06/16/21 11:11 Resp 20 06/16/21 11:11 BP 103/57 L 06/16/21 12:25 Pulse Ox 97 06/16/21 11:11 Body Mass Index 20.6 Const: General: comfortable and no acute distress HENMT: Head: Yes normocephalic and Yes atraumatic Neck: Neck: Yes supple Resp: Auscultation: clear to auscultation bilaterally Cardio: Heart sounds: S1 normal heart sound present and S2 normal heart sound present GI: Palpation (GI): Soft to palpation and nontender Extrem: General: No pedal edema Objective Data Labs CBC & Chem 7: 06/16/21 05:44 06/16/21 05:44 Labs: Laboratory Results - last 24 hr 06/16/21 06/16/21 05:44 05:44 WBC 6.0 RBC 4.03 L Hgb 12.8 L Hct 36.3 L MCV 90.1 MCH 31.8 MCHC 35.3 RDW 13.2 Plt Count 93 L MPV 10.0 Absolute Nucleated RBC 0.000 Nucleated RBC % (auto) 0.0 Sodium 135 Potassium 3.3 Chloride 102 Carbon Dioxide 23 Anion Gap 13 BUN 14 Creatinine 0.92 Estim Creat Clear Calc 81.5 Estimated GFR > 60 Fasting Glucose 107 H Calcium 8.0 L Magnesium 2.0 Microbiology Microbiology Results: Microbiology 06/13/21 14:27 Blood - Venous Blood Culture - Final Coag negative Staphylococcus 06/13/21 14:27 Blood - Venous Blood Culture - Preliminary No growth after 48 hours. Procedures Date of Service Date of Service: 06/16/21 Assessment & Plan Assessment and plan (1) DEVANG (acute kidney injury): Status: Acute (2) Hyponatremia: Status: Acute Assessment and Plan: kidney function and sodium level normalized hypotonic hypovolemic hyponatremia resolved DEVANG due to compromised kidney perfusion resolved REC continue fluid restriction follow kidney function and electrolytes Time Spent With Patient Time: Total time spent is greater than 50% in coordination of care (as documente d) at patient's floor/unit and/or counseling patient: Progress Note: Quality Stroke Does the patient have a stroke diagnosis?: No
--- NOTE | 2021-06-16 14:56 | MHC.CM.PN ---
IMM 06/16/21 Patient discharge to [facility] via .
== END 2021-06-16 15:45 | disposition other institution (70) | DRG 683 ==
LOC: HO.ED 15:20 → HO.EDOVER 16:36 → HO.IMC 16:43
PROVIDERS: Admitting Provider Internal Medicine; Emergency Provider Emergency Medicine; PCP Internal Medicine; Visit Provider Internal Medicine
DX: N17.9 Acute kidney failure, unspecified (principal); E87.1 Hypo-osmolality and hyponatremia; E87.2 Acidosis; F10.27 Alcohol dependence with alcohol-induced persisting dementia; F31.4 Bipolar disorder, current episode depressed, severe, without psychotic features; E87.6 Hypokalemia; J44.9 Chronic obstructive pulmonary disease, unspecified; I95.9 Hypotension, unspecified; R62.7 Adult failure to thrive; Z68.20 Body mass index [BMI] 20.0-20.9, adult; F17.210 Nicotine dependence, cigarettes, uncomplicated; Z20.822 Contact with and (suspected) exposure to COVID-19; Z71.6 Tobacco abuse counseling; Z88.6 Allergy status to analgesic agent; Z79.899 Other long term (current) drug therapy
CPT/HCPCS: 36415; 70450; 71046; 71250; 72100; 72125; 80048; 80076; 80307; 81001; 82077; 82140; 82436; 82550; 82803; 83605; 83690; 83735; 83930; 83935; 84133; 84300; 84443; 84484; 85025; 85027; 85610; 85730; 87040; 87147; 87205; 87635; 93005; 94640; 96361; 96365; 96366; 96367; 96375; 99284; 99285; 99291; J3370; J3411; J3475

== ENCOUNTER 2021-06-16 16:04 | Inpatient (IN) | payer MEDICARE, MEDICAID, SELFPAY ==
--- NOTE | ~2021-06-16 | MR_ITS ---
EXAMINATION: MR BRAIN WITHOUT CONTRAST CLINICAL INFORMATION: Wernicke Korsakoff syndrome. COMPARISON: CT head from 06/13/2021. Brain MRI from 08/30/2015. TECHNIQUE: MRI of the brain was obtained using routine sequences without contrast. FINDINGS: No focal restricted diffusion is demonstrated to suggest acute or subacute cerebral ischemia. No evidence of acute or chronic hemorrhagic products on heme-sensitive imaging. Basal ganglia mineralization. Scattered periventricular and deep white matter T2 FLAIR hyperintensities consistent with mild underlying microangiopathy. Proportional prominence of the ventricles and sulcal spaces without evidence of obstructive hydrocephalus. No abnormal mass effect. No midline shift. Normal appearance of the pituitary gland. No abnormalities of the posterior fossa with normal appearance of the brainstem and cerebellum. Normal positioning of the cerebellar tonsils. Normal arterial and venous vascular flow voids are present. Normal, homogeneous marrow signal. The patient is edentulous. Mild mucosal thickening of the paranasal sinuses. No signal abnormalities within the mastoids. MR/MR head/brain wo con IMPRESSION: 1. No acute intracranial abnormalities. 2. Mild underlying microangiopathy and generalized cerebral volume loss.
[2021-06-16 17:23] VITALS: BP 105/55; PULSE 73; RESP 20; TEMP 36.3; O2SAT 98
[2021-06-16 19:21] VITALS: BMI 22.8
--- NOTE | 2021-06-16 20:33 | PC.ADMIT ---
Admission Bote: 66 year old man admit to unit from medical floor at 1657 via w/c by RN. DX include Bipolar disorder, current episode depressed severe without psychotic features, Alcohol dependence, uncomplicated. Patient presented to [facility] via EMS on 06/13/21. Patient was found on floor unable to care for himself, in his home which is condemned. Patient admit to medical floor for acute kidney injury, hypokalemia and hyponatremia. Patient was stabilized and had psychiatric consult with recommendation for inpatient admission. Care team spoke with patient's sister who is invoked HCP and agreed to transfer. Patient legal status 12b. Patient alert and oriented to person and place, able to participate in admission assessment. Skin assessment completed and charted. Patient is on 15 min safety checks. Patient declined Safety Tool assessment but agreed to completed in am. All release of information signed by patient. Treatment plan initiated. All admission orders by Radha Marquez APRN.
[2021-06-17 08:00] VITALS: BP 153/73; PULSE 81; TEMP 36.8; O2SAT 97
--- NOTE | 2021-06-17 08:47 | HO.PSYADMNOT ---
HPI Chief Complaint: Alcohol use disorder, depression, SI Sources of Information: patient interviewed, chart reviewed and crisis/core team assessment reviewed HPI Subjective Notes: Barraza Warning and Conditional Voluntary Healthcare Proxy: Yes Guardianship: No Medical Problems Affecting Mental Status: No Narrative: Dat is a 66 y.o. Male who carries a dx of bipolar disorder, alcohol use disorder. He has a long history of depression, alcohol abuse. He presented to [facility] via section 12a on 06/13/21 after his sister calling EMS due to inability to care for self, found living in squalor, flicking cigarette ashes at himself and EMS. He had a previous ED visit on 06/11 with similar presentation but left AMA. In the ED he was found to have DEVANG, hyponatremia, hypokalemia, and was confused. He was placed on CIWA, given IV thiamine/folic acid due to alcohol use and was transferred to [facility] [place]. Over the course of hospitalization he was given IV fluids and DEVANG resolved, sodium was corrected and potassium replaced. He was started on midodrine due to hypotension. He had a psych consult on 06/14 and due to confusion, decompensation, inability to care for self, and alcohol abuse it was determined he does not have capacity for medical decisions and HCP was invoked. He is currently not on any psychotropic medications. He was transferred to upon medical clearance on 06/16, signed CV.? Per psych consult note 06/14:? -?Sister reports that he has been extremely depressed, and has spiralled into a further depression after the of a close friend 2 weeks ago. She reported that he has not been eating, or caring for himself, and has been defecating in his bed and a bag. The apartment has been condemned by the board of health, due to rotten food, clutter, and urine / feces throughout the apartment.?? -Sister ?reports that he has had episodes throughout his life of extreme brenda and grandiosity, which quickly spiral into deep depression. She reports that although he had been referred to outpatient treatment upon his discharge from here in 2014, he only went to appointments several times before stopping. She reports that he did not continue with any medications at that time either. She reports that his most recent episode of brenda was approximately 3 months ago. Patient normally calls her daily, as he cyles through the brenda into depression. She reports that a very close friend of his since childhood 2 weeks ago, and he spiralled into a deep depression, remaining in bed, drinking, and not eating, by himself. She reports a significant weight loss, stating that several years ago he weighed 270 lb. ? I evaluated the patient this evening, 06/16, and upon interview he appears confused, says he is in the hospital because of ?my stomach I guess,? however denies GI distress. Says his mood is ?okay.? He denies current depressed mood, I asked if he has been depressed in the recent past and he states ?I supposed I have.? He is unable to recall past med trials or treatment. Says his sleep and energy are ?okay.? Denies anger or agitation. Denies hallucinations. Denies questions or concerns. Says he feels safe, ?Im fine.?? Current med regimen: folic acid 1 mg, thaimine 100 mg. No OP psych providers. Past med regimen: lexapro (activating), wellbutrin, ativan, aricept, abilify (agitating), lithium, olanzapine.? PPH: -2 IPLOC on in 2014, hx of multiple psych meds and ECT. Sister reports ILPOC at [facility] 4 years ago.? -Per chart, he was admitted to 05/2015 due to depression, incontinence, inability to care for self, and failure to thrive. Precipitating factor was his mother?s in 2013, essentially regressed after this. He was given a trial of lexapro and lorazepam. Abilify was added but he became agitated. Wellbutrin was then added to augment lexapro and he tolerated it well. He was then re-admitted to 08/2015 after being found in a store, talking incoherently, had sx of grandiose delusions, racing thoughts, daily drinking, impulsive spending. He was started on lithium and olanzapine by Dr. Ingram.? PMH: -Per hospitalist note: elevation in liver enzymes due to ETOH and dehydration and not infection or severe sepsis -Per psych consult note 06/14: ?A MOCA was performed, and patient scored 21 out of 30 (mild cognitive impairment). His last MOCA administered while inpatient on M 5 in 2014 he scored a 27. Today's scoring suggests prefrontal region of frontal lobe impairment, which could be directly related to chronic alcohol consumption.? -Has known compression fracture L1/L4 and T12, Hx of pain.? SH: -Lives alone [place]. Per chart, he has a 51a filed, DPH involved given the conditions of the home. Supports include sister.? -Patient grew up the youngest of 4 children. Has 2 older sisters, 1 older brother. Raised by both parents, supportive environment. Describes his relationship with siblings as close. -His mother in 2013 and his father in 2005, he had been caring for them prior to their deaths.? -Attended [employer], dropped out due to alcohol and mental illness. -Current HCP is his sister, invoked since 06/14 Substance use: -Per chart, he was placed on CIWA but did not require detox meds due to CIWA scoring at 0-1. He stated that he drinks approximately 6-8 beers daily as well as shots of whiskey.? -Per chart, his sister reports long standing alcohol use disorder. DUI 4 years ago, patient lost license. Was hospitalized due to alcohol intoxication, subsequently was intubated at that time. He has a remote hx of cocaine use. Medical Evaluation Reviewed: Yes [facility] Medical History Alcoholism Bipolar 1 disorder Chronic back pain COPD (chronic obstructive pulmonary disease) HTN (hypertension) Family History: unknown Social History: lives by self in condo. raised by both parents, has 3 older siblings, closest in age is 11 years older. Retired/unemployed Trauma History: unknown Diagnostics Vital Signs (24Hr): Vital Signs - 24 hr 06/16/21 17:23 Temperature 97.4 F Pulse Rate 73 Respiratory Rate 20 Blood Pressure 105/55 L Pulse Oximetry 98 Body Mass Index 22.8 Meds/Allergies Meds Home Medications Acetaminophen (Acetaminophen 325 Mg Tablet) 650 mg PO Q6H PRN PRN Reason: Headache/Pain Mild Scale (1-3) Albuterol Sulfate (Albuterol Sulfate 90 Mcg 8 Gm Inhaler) 2 puff INHALE RQ4H PRN PRN Reason: asthma Hydroxyzine HCl (Hydroxyzine Hcl 25 Mg Tablet) 25 mg PO Q6H PRN PRN Reason: Anxiety Lurasidone HCl (Lurasidone Hcl 20 Mg Tablet) 20 mg PO BEDTIME [facility] Last Admin: 06/16/21 21:38 Dose: Not Given Documented by: Magnesium Hydroxide (Milk Of Magnesia 30 Ml Oral.Susp) 30 ml PO DAILY PRN PRN Reason: Constipation Melatonin (Melatonin 3 Mg Tablet) 6 mg PO BEDTIME PRN PRN Reason: Insomnia Midodrine (Midodrine Hcl 5 Mg Tablet) 5 mg PO TIDAC [facility] Last Admin: 06/17/21 08:51 Dose: 5 mg Documented by: Multivitamins/Minerals (Multivitamin With Minerals Tablet) 1 tab PO DAILY [facility] Last Admin: 06/17/21 08:51 Dose: 1 tab Documented by: Nicotine (Nicotine 21 Mg Patch.Td24) 21 mg TRANSDERMA DAILY [facility] Thiamine HCl (Thiamine Hcl 100 Mg Tablet) 100 mg PO DAILY [facility] Last Admin: 06/17/21 08:51 Dose: 100 mg Documented by: Trazodone HCl (Trazodone Hcl 50 Mg Tablet) 50 mg PO BEDTIME PRN PRN Reason: Insomnia Allergies Allergies Allergy/AdvReac Type Severity Reaction Status Date / Time ibuprofen [IBUPROFEN] Allergy Severe ANAPHYLAXIS Verified 06/11/21 14:23 cat dander [CATS] Allergy Unknown UNKNOWN Verified 06/11/21 14:23 dog dander [DOGS] Allergy Unknown UNKNOWN Verified 06/11/21 14:23 Mental Status Exam Mental Status Exam Narrative: He is alert, not oriented to situation. In hospital gown, unkempt appearance, frail. Poor eye contact, inattentive. No Tics or Tremors. No abnormal involuntary movements. Calm, cooperative, but difficult to engage in meaningful conversation. Non-pressured speech, non-spontaneous with regular rate and rhythm, normal volume and prosody. No prolonged speech latency or dysarthria. Mood is ?okay,? affect is constricted. Denies SI/SIB/HI upon inquiry. Denies A/VH or delusional thought content. Thoughts are linear, concrete. Has sx of dementia, cognitive/ memory impairment. Insight/ Judgment limited but adequate. Assessment & Plan Assessment & Plan (1) Alcohol use disorder, severe, dependence: Status: Acute Code(s): F10.20 - Alcohol dependence, uncomplicated (2) Bipolar disorder, current episode depressed, severe, without psychotic features: Status: Acute Code(s): F31.4 - Bipolar disorder, current episode depressed, severe, without psychotic features Assessment and Plan: Dat is a 66 y.o. Male who carries a dx of bipolar disorder, alcohol use disorder. He has a long history of depression, alcohol abuse. He presented to [facility] via section 12a on 06/13/21 after his sister calling EMS due to inability to function, decompensation. He is currently presenting with sx of neurocognitive impairment/ confusion, depressed mood. Had been drinking daily but denies withdrawal sx, no longer on CIWA protocols, receiving folic acid and thiamine therapy. Has hx of IPLOC on M5 and was diagnosed with bipolar disorder, treated with lithium and zyprexa, hx of ECT for severe depression. Hx of non-adherence with OP psych treatment, no current psychotropic medications. Denies current psychotic sx. Plan: 1. Start latuda 20 mg QHS for sx of depression, mood stability. 2. Monitor response to medications. Monitor for safety in the milieu. Discharge on stabilization. Patient seen. Chart reviewed. Discussed with team. Obtain collateral contact info?as needed Reason for continued inpatient stay Substantial Risk for: harm to self, inability to function, rapid decompensation and med/psych decompensation
[2021-06-17 08:51] VITALS: BP 153/73; PULSE 81
[2021-06-17] MEDS: Thiamine HCL 100 MG TABLET PO (08:51)
[2021-06-17] MEDS: Midodrine HCl 5 MG TABLET PO ×2 (08:51→17:11)
--- NOTE | 2021-06-17 12:00 | P.PNPSI_ITS ---
Subjective Subjective Date of Service: 06/18/21 Reason For Visit: Alcohol use disorder, depression, SI Interim History: Gera is in his room. He is pleasant on approach. He does not know why he is here in the hospital. He states he had some stomach problems. When told he is in psychiatric unit, he states he does not know why. He denies depression or anxiety. No overt signs of psychosis but pt appears significantly impaired to function and care for himself- not due to psychiatric symptoms. He denies SI/HI. No VH/AH. Per nursing, pt incontinent of stool and unaware of it. His gait is very unsteady. Medication Compliance: Yes Side effects from medications: No Attending Groups: No Review of Systems Acute medical concerns: No Mental Status Exam Mental Status Exam Narrative: Appearance: casually groomed, fair hygiene in NAD Behavior:cooperative psychomotor: no agitation or retardation noted Speech:clear, normal rate/rhythm/volume, spontaneous Thought process: Thought content:no overt delusional content, not oriented to situation Mood: okay Affect: congruent SI:denies HI:denies VH/AH:none Delusions:none Insight/judgment:impaired x 2. Memory/cog: alert, oriented to month, year, date, but not situation. Had MOCA on 06/13 score of 21/30, most impairment in executive function, recall- I do suspect his actual ability of current functioning is much more impaired and significant than mild cognitive impairment. Diagnostics Vital Signs (24Hr): Vital Signs - 24 hr 06/17/21 17:11 06/17/21 21:11 06/18/21 06:00 Temperature 98.5 F 97.2 F Pulse Rate 76 89 65 Respiratory Rate 18 16 Blood Pressure 148/70 H 127/61 137/72 Pulse Oximetry 98 97 06/18/21 07:46 06/18/21 11:51 Temperature Pulse Rate 65 104 H Respiratory Rate Blood Pressure 137/72 113/68 Pulse Oximetry Body Mass Index 22.8 Labs Results: 06/18/21 11:46 Medications Medications Current Medications Generic Name Dose Route Start Last Admin Trade Name Freq PRN Reason Stop Dose Admin Acetaminophen 650 mg 06/16/21 17:29 Acetaminophen 325 Mg Tablet PO Q6H PRN Headache/Pain Mild Scale (1-3) Albuterol Sulfate 2 puff 06/16/21 19:57 Albuterol Sulfate 90 Mcg 8 Gm Inhaler INHALE RQ4H PRN asthma Hydroxyzine HCl 25 mg 06/16/21 17:29 Hydroxyzine Hcl 25 Mg Tablet PO Q6H PRN Anxiety Lurasidone HCl 20 mg 06/16/21 21:00 06/17/21 20:01 Lurasidone Hcl 20 Mg Tablet PO 20 mg BEDTIME [facility] Administration Magnesium Hydroxide 30 ml 06/16/21 17:29 Milk Of Magnesia 30 Ml Oral.Susp PO DAILY PRN Constipation Melatonin 6 mg 06/16/21 19:55 Melatonin 3 Mg Tablet PO BEDTIME PRN Insomnia Midodrine 5 mg 06/17/21 07:30 06/18/21 11:51 Midodrine Hcl 5 Mg Tablet PO 5 mg TIDAC [facility] Administration Multivitamins/Minerals 1 tab 06/17/21 09:00 06/18/21 09:42 Multivitamin With Minerals Tablet PO 1 tab DAILY [facility] Administration Nicotine 21 mg 06/17/21 09:00 06/18/21 09:47 Nicotine 21 Mg Patch.Td24 TRANSDERMA 21 mg DAILY [facility] Administration Thiamine HCl 100 mg 06/17/21 09:00 06/18/21 09:42 Thiamine Hcl 100 Mg Tablet PO 100 mg DAILY [facility] Administration Trazodone HCl 50 mg 06/16/21 17:29 Trazodone Hcl 50 Mg Tablet PO BEDTIME PRN Insomnia Allergies Allergies Allergy/AdvReac Type Severity Reaction Status Date / Time ibuprofen [IBUPROFEN] Allergy Severe ANAPHYLAXIS Verified 06/11/21 14:23 cat dander [CATS] Allergy Unknown UNKNOWN Verified 06/11/21 14:23 dog dander [DOGS] Allergy Unknown UNKNOWN Verified 06/11/21 14:23 Assessment & Plan Assessment & Plan (1) Alcohol use disorder, severe, dependence: Status: Acute Code(s): F10.20 - Alcohol dependence, uncomplicated (2) Bipolar disorder, current episode depressed, severe, without psychotic features: Status: Acute Code(s): F31.4 - Bipolar disorder, current episode depressed, severe, without psychotic features (3) Cognitive impairment: Status: Acute Code(s): R41.89 - Other symptoms and signs involving cognitive functions and awareness Assessment and Plan: Dat is a 66 y.o. Male who carries a dx of bipolar disorder, alcohol use disorder. He has a long history of depression, alcohol abuse. He presented to [facility] via section 12a on 06/13/21 after his sister calling EMS due to inability to function, decompensation. He is currently presenting with sx of neurocognitive impairment/ confusion, depressed mood. Had been drinking daily but denies withdrawal sx, no longer on CIWA protocols, receiving folic acid and thiamine therapy. Has hx of IPLOC on M5 and was diagnosed with bipolar disorder, treated with lithium and zyprexa, hx of ECT for severe depression. Hx of non- adherence with OP psych treatment, no current psychotropic medications. Denies current psychotic sx. Plan: 1. Continue latuda 20 mg QHS for sx of depression, mood stability. 2. Monitor response to medications. Monitor for safety in the milieu. Discharge on stabilization. Patient seen. Chart reviewed. Discussed with team. Obtain collateral contact info?as needed Greater than 50% of the session was spent on counseling and/or coordination of care Patient educated on: diagnosis, medication risk/benefits and substance abuse Informed Consent: does not understand Reason for contiued inpatient stay Substantial Risk for: inability to function
[2021-06-17 17:11] VITALS: BP 148/70; PULSE 76
[2021-06-17] MEDS: Lurasidone HCl 20 MG TABLET PO (20:01)
[2021-06-17 21:11] VITALS: BP 127/61; PULSE 89; RESP 18; TEMP 36.9; O2SAT 98
[2021-06-18 06:00] VITALS: BP 137/72; PULSE 65; RESP 16; TEMP 36.2; O2SAT 97
[2021-06-18 07:46] VITALS: BP 137/72; PULSE 65
[2021-06-18] MEDS: Midodrine HCl 5 MG TABLET PO ×3 (07:46→16:29)
--- NOTE | 2021-06-18 08:33 | HO.PSYCHPN ---
Subjective Subjective Date of Service: 06/20/21 Reason For Visit: Alcohol use disorder, depression, SI Subjective Notes: Conditional Voluntary Interim History: Gera is in his room. He is pleasant on approach. He does not know why he is here in the hospital. He states he had some stomach problems. When told he is in psychiatric unit, he states he does not know why. He denies depression or anxiety. No overt signs of psychosis but pt appears significantly impaired to function and care for himself- not due to psychiatric symptoms. He denies SI/HI. No VH/AH. Per nursing, pt incontinent of stool and unaware of it. His gait is very unsteady. Mental Status Exam Mental Status Exam Narrative: Appearance: casually groomed, fair hygiene in NAD Behavior:cooperative psychomotor: no agitation or retardation noted Speech:clear, normal rate/rhythm/volume, spontaneous Thought process: Thought content:no overt delusional content, not oriented to situation Mood: okay Affect: congruent SI:denies HI:denies VH/AH:none Delusions:none Insight/judgment:impaired x 2. Memory/cog: alert, oriented to month, year, date, but not situation. Had MOCA on 06/13 score of 21/30, most impairment in executive function, recall- I do suspect his actual ability of current functioning is much more impaired and significant than mild cognitive impairment. Diagnostics Vital Signs (24Hr): Vital Signs - 24 hr 06/19/21 08:50 06/19/21 18:00 Temperature 97.7 F Pulse Rate 98 98 Respiratory Rate 20 Blood Pressure 136/63 123/69 Pulse Oximetry 98 Body Mass Index 22.8 Labs Results: 06/18/21 11:46 Labs: Laboratory Results - last 48 hr 06/18/21 06/18/21 11:46 11:46 Sodium 136 Potassium 3.9 Chloride 101 Carbon Dioxide 27 Anion Gap 12 BUN 12 Creatinine 0.86 Estim Creat Clear Calc 96.2 Estimated GFR > 60 Random Glucose 68 D Calcium 8.9 D Total Bilirubin 0.7 AST 47 H ALT 64 H Alkaline Phosphatase 162 H D Total Protein 5.8 L D Albumin 3.2 L Vitamin B12 592 Folate > 20.0 Medications Medications Current Medications Generic Name Dose Route Start Last Admin Trade Name Freq PRN Reason Stop Dose Admin Acetaminophen 650 mg 06/16/21 17:29 06/19/21 16:47 Acetaminophen 325 Mg Tablet PO 650 mg Q6H PRN Administration Headache/Pain Mild Scale (1-3) Albuterol Sulfate 2 puff 06/16/21 19:57 Albuterol Sulfate 90 Mcg 8 Gm Inhaler INHALE RQ4H PRN asthma Hydroxyzine HCl 25 mg 06/16/21 17:29 Hydroxyzine Hcl 25 Mg Tablet PO Q6H PRN Anxiety Lurasidone HCl 20 mg 06/16/21 21:00 06/19/21 20:18 Lurasidone Hcl 20 Mg Tablet PO 20 mg BEDTIME [facility] Administration Magnesium Hydroxide 30 ml 06/16/21 17:29 Milk Of Magnesia 30 Ml Oral.Susp PO DAILY PRN Constipation Melatonin 6 mg 06/16/21 19:55 06/19/21 20:18 Melatonin 3 Mg Tablet PO 6 mg BEDTIME PRN Administration Insomnia Midodrine 5 mg 06/17/21 07:30 06/19/21 17:03 Midodrine Hcl 5 Mg Tablet PO Not Given TIDAC [facility] Multivitamins/Minerals 1 tab 06/17/21 09:00 06/19/21 08:50 Multivitamin With Minerals Tablet PO 1 tab DAILY [facility] Administration Naltrexone HCl 25 mg 06/19/21 14:35 06/19/21 16:47 Naltrexone Hcl 50 Mg Tablet PO 25 mg DAILY [facility] Administration Nicotine 21 mg 06/17/21 09:00 06/19/21 08:50 Nicotine 21 Mg Patch.Td24 TRANSDERMA 21 mg DAILY [facility] Administration Thiamine HCl 100 mg 06/17/21 09:00 06/19/21 08:51 Thiamine Hcl 100 Mg Tablet PO 100 mg DAILY [facility] Administration Trazodone HCl 50 mg 06/16/21 17:29 Trazodone Hcl 50 Mg Tablet PO BEDTIME PRN Insomnia Allergies Allergies Allergy/AdvReac Type Severity Reaction Status Date / Time ibuprofen [IBUPROFEN] Allergy Severe ANAPHYLAXIS Verified 06/11/21 14:23 cat dander [CATS] Allergy Unknown UNKNOWN Verified 06/11/21 14:23 dog dander [DOGS] Allergy Unknown UNKNOWN Verified 06/11/21 14:23 Assessment & Plan Assessment & Plan (1) Alcohol use disorder, severe, dependence: Status: Acute Code(s): F10.20 - Alcohol dependence, uncomplicated (2) Bipolar disorder, current episode depressed, severe, without psychotic features: Status: Acute Code(s): F31.4 - Bipolar disorder, current episode depressed, severe, without psychotic features (3) Cognitive impairment: Status: Acute Code(s): R41.89 - Other symptoms and signs involving cognitive functions and awareness Assessment and Plan: Dat is a 66 y.o. Male who carries a dx of bipolar disorder, alcohol use disorder. He has a long history of depression, alcohol abuse. He presented to [facility] via section 12a on 06/13/21 after his sister calling EMS due to inability to function, decompensation. He is currently presenting with sx of neurocognitive impairment/ confusion, depressed mood. Had been drinking daily but denies withdrawal sx, no longer on CIWA protocols, receiving folic acid and thiamine therapy. Has hx of IPLOC on M5 and was diagnosed with bipolar disorder, treated with lithium and zyprexa, hx of ECT for severe depression. Hx of non-adherence with OP psych treatment, no current psychotropic medications. Denies current psychotic sx. Plan: 1. Continue latuda 20 mg QHS for sx of depression, mood stability. 2. Monitor response to medications. Monitor for safety in the milieu. Discharge on stabilization. Patient seen. Chart reviewed. Discussed with team. Obtain collateral contact info?as needed Greater than 50% of the session was spent on counseling and/or coordination of care Reason for contiued inpatient stay Substantial Risk for: inability to function
[2021-06-18] MEDS: Thiamine HCL 100 MG TABLET PO (09:42)
[2021-06-18] MEDS: Nicotine 21 MG PATCH.TD24 TRANSDERMA (09:47)
[2021-06-18 11:51] VITALS: BP 113/68; PULSE 104
[2021-06-18 12:11] LABS: Alanine Aminotransferase 64 U/L (0-40); Albumin Level 3.2 g/dL (3.5-5.0); Alkaline Phosphatase 162 U/L (39-117); Anion Gap 12 (12-20); Aspartate Amino Transferase 47 U/L (5-37); Bilirubin Total 0.7 mg/dL (0.0-1.0); Blood Urea Nitrogen 12 mg/dL (9-16); Calcium 8.9 mg/dL (8.4-10.2); Carbon Dioxide 27 mmol/L (22-29); Chloride 101 mmol/L (96-108); Creatinine Clr Calc Pharmacy 96.2; Estimated Glomerular Filt Rate > 60; Glucose Random 68 mg/dL (60-115); Potassium 3.9 mmol/L (3.3-5.1); Sodium 136 mmol/L (135-145); Total Protein 5.8 g/dL (6.5-8.0)
[2021-06-18 16:29] VITALS: BP 104/65; PULSE 102
[2021-06-18 18:00] VITALS: BP 114/67; PULSE 81; RESP 16; TEMP 37.1; O2SAT 98
[2021-06-18] MEDS: Lurasidone HCl 20 MG TABLET PO (21:07)
[2021-06-19 08:00] VITALS: BP 136/63; PULSE 106; TEMP 36.6; O2SAT 99
--- NOTE | 2021-06-19 08:34 | HO.PSYCHPN ---
Subjective Subjective Date of Service: 06/20/21 Reason For Visit: Alcohol use disorder, depression, SI Interim History: Gera has been more visible in the unit, although he does not know why he is here in the hospital. He states he had some stomach problems. When told he is in psychiatric unit, he states he does not know why. He denies depression or anxiety. Pt increasingly more restless today, asking to be discharged. he called friend and told him to pick him up and get bottle of alcohol on their way. Pt informed discharge is not planned for today. we discussed starting medications to decrease alcohol craving- elevated LFTs but less than 3 times normal- can start lower dose of naltrexon. No overt signs of psychosis but pt appears significantly impaired to function and care for himself- not due to psychiatric symptoms. He denies SI/HI. No VH/AH. Per nursing, pt incontinent of stool and unaware of it. His gait is very unsteady. Mental Status Exam Mental Status Exam Narrative: Appearance: casually groomed, fair hygiene in NAD Behavior:cooperative psychomotor: no agitation or retardation noted Speech:clear, normal rate/rhythm/volume, spontaneous Thought process: Thought content:no overt delusional content, not oriented to situation Mood: okay Affect: congruent SI:denies HI:denies VH/AH:none Delusions:none Insight/judgment:impaired x 2. Memory/cog: alert, oriented to month, year, date, but not situation. Had MOCA on 06/13 score of 21/30, most impairment in executive function, recall- I do suspect his actual ability of current functioning is much more impaired and significant than mild cognitive impairment. Diagnostics Vital Signs (24Hr): Vital Signs - 24 hr 06/19/21 08:50 06/19/21 18:00 Temperature 97.7 F Pulse Rate 98 98 Respiratory Rate 20 Blood Pressure 136/63 123/69 Pulse Oximetry 98 Body Mass Index 22.8 Labs Results: 06/18/21 11:46 Labs: Laboratory Results - last 48 hr 06/18/21 06/18/21 11:46 11:46 Sodium 136 Potassium 3.9 Chloride 101 Carbon Dioxide 27 Anion Gap 12 BUN 12 Creatinine 0.86 Estim Creat Clear Calc 96.2 Estimated GFR > 60 Random Glucose 68 D Calcium 8.9 D Total Bilirubin 0.7 AST 47 H ALT 64 H Alkaline Phosphatase 162 H D Total Protein 5.8 L D Albumin 3.2 L Vitamin B12 592 Folate > 20.0 Medications Medications Current Medications Generic Name Dose Route Start Last Admin Trade Name Freq PRN Reason Stop Dose Admin Acetaminophen 650 mg 06/16/21 17:29 06/19/21 16:47 Acetaminophen 325 Mg Tablet PO 650 mg Q6H PRN Administration Headache/Pain Mild Scale (1-3) Albuterol Sulfate 2 puff 06/16/21 19:57 Albuterol Sulfate 90 Mcg 8 Gm Inhaler INHALE RQ4H PRN asthma Hydroxyzine HCl 25 mg 06/16/21 17:29 Hydroxyzine Hcl 25 Mg Tablet PO Q6H PRN Anxiety Lurasidone HCl 20 mg 06/16/21 21:00 06/19/21 20:18 Lurasidone Hcl 20 Mg Tablet PO 20 mg BEDTIME DIANE Administration Magnesium Hydroxide 30 ml 06/16/21 17:29 Milk Of Magnesia 30 Ml Oral.Susp PO DAILY PRN Constipation Melatonin 6 mg 06/16/21 19:55 06/19/21 20:18 Melatonin 3 Mg Tablet PO 6 mg BEDTIME PRN Administration Insomnia Midodrine 5 mg 06/17/21 07:30 06/19/21 17:03 Midodrine Hcl 5 Mg Tablet PO Not Given TIDAC [facility] Multivitamins/Minerals 1 tab 06/17/21 09:00 06/19/21 08:50 Multivitamin With Minerals Tablet PO 1 tab DAILY DIANE Administration Naltrexone HCl 25 mg 06/19/21 14:35 06/19/21 16:47 Naltrexone Hcl 50 Mg Tablet PO 25 mg DAILY DIANE Administration Nicotine 21 mg 06/17/21 09:00 06/19/21 08:50 Nicotine 21 Mg Patch.Td24 TRANSDERMA 21 mg DAILY DIANE Administration Thiamine HCl 100 mg 06/17/21 09:00 06/19/21 08:51 Thiamine Hcl 100 Mg Tablet PO 100 mg DAILY [facility] Administration Trazodone HCl 50 mg 06/16/21 17:29 Trazodone Hcl 50 Mg Tablet PO BEDTIME PRN Insomnia Allergies Allergies Allergy/AdvReac Type Severity Reaction Status Date / Time ibuprofen [IBUPROFEN] Allergy Severe ANAPHYLAXIS Verified 06/11/21 14:23 cat dander [CATS] Allergy Unknown UNKNOWN Verified 06/11/21 14:23 dog dander [DOGS] Allergy Unknown UNKNOWN Verified 08/29/21 14:23 Assessment & Plan Assessment & Plan (1) Alcohol use disorder, severe, dependence: Status: Acute Code(s): F10.20 - Alcohol dependence, uncomplicated (2) Bipolar disorder, current episode depressed, severe, without psychotic features: Status: Acute Code(s): F31.4 - Bipolar disorder, current episode depressed, severe, without psychotic features (3) Cognitive impairment: Status: Acute Code(s): R41.89 - Other symptoms and signs involving cognitive functions and awareness Assessment and Plan: Dat is a 66 y.o. Male who carries a dx of bipolar disorder, alcohol use disorder. He has a long history of depression, alcohol abuse. He presented to [facility] [place] [facility] via section 12a on 06/13/21 after his sister calling EMS due to inability to function, decompensation. He is currently presenting with sx of neurocognitive impairment/ confusion, depressed mood. Had been drinking daily but denies withdrawal sx, no longer on CIWA protocols, receiving folic acid and thiamine therapy. Has hx of IPLOC on M5 and was diagnosed with bipolar disorder, treated with lithium and zyprexa, hx of ECT for severe depression. Hx of non-adherence with OP psych treatment, no current psychotropic medications. Denies current psychotic sx. Plan: 1. Continue latuda 20 mg QHS for sx of depression, mood stability. 2. Monitor response to medications. 3. Start low dose naltrexon 25mg po daily for alcohol cravings- LFTs elevated but less than 3 times normal. Monitor for safety in the milieu. Discharge on stabilization. Patient seen. Chart reviewed. Discussed with team. Obtain collateral contact info?as needed Greater than 50% of the session was spent on counseling and/or coordination of care Reason for contiued inpatient stay Substantial Risk for: inability to function
[2021-06-19 08:45] LABS: Folate > 20.0 ng/mL (> or = 4.0); Vitamin B12 592 pg/mL (200-900)
[2021-06-19 08:50] VITALS: BP 136/63; PULSE 98
[2021-06-19] MEDS: Nicotine 21 MG PATCH.TD24 TRANSDERMA (08:50)
[2021-06-19] MEDS: Midodrine HCl 5 MG TABLET PO (08:50)
[2021-06-19] MEDS: Thiamine HCL 100 MG TABLET PO (08:51)
--- NOTE | 2021-06-19 14:16 | PC.NURSE ---
Pt utilzing wheelchair for safety, as he is unsteady when ambulating. Pt observed moving wheelchair into another pt's room where he moved in front of the toilet, still in the wheelchair, pulled down the front of his pants, and urinated on the floor, the front of his Steve, and his hospital pants. The pt looked up then said Yup I did it good, I am all set . Attempted to assist the pt with changing his clothes, the pt refused. Explained to the pt that he has urine on the front of his Steve and on his hospital pants, the pt said, No, that is from breakfast . After more encouragement, the pt cooperated with changing his clothing.
[2021-06-19] MEDS: clonazePAM 1 MG TABLET PO (15:30)
[2021-06-19] MEDS: Naltrexone HCl 50 MG TABLET 25 MG PO (16:47)
[2021-06-19] MEDS: Acetaminophen 325 MG TABLET 650 MG PO (16:47)
[2021-06-19 18:00] VITALS: BP 123/69; PULSE 98; RESP 20; TEMP 36.5; O2SAT 98
[2021-06-19] MEDS: Melatonin 3 MG TABLET 6 MG PO (20:18)
[2021-06-19] MEDS: Lurasidone HCl 20 MG TABLET PO (20:18)
[2021-06-20 09:13] VITALS: BP 123/69; PULSE 98; O2SAT 98
[2021-06-20 09:55] VITALS: BP 101/64; PULSE 102; RESP 16; TEMP 36.2; O2SAT 96
[2021-06-20 09:56] VITALS: BP 101/64; PULSE 102
[2021-06-20] MEDS: Naltrexone HCl 50 MG TABLET 25 MG PO (09:56)
[2021-06-20] MEDS: Midodrine HCl 5 MG TABLET PO (09:56)
[2021-06-20] MEDS: Nicotine 21 MG PATCH.TD24 TRANSDERMA (09:57)
[2021-06-20] MEDS: Thiamine HCL 100 MG TABLET PO (09:58)
--- NOTE | 2021-06-20 11:22 | P.PNPSI_ITS ---
Subjective Subjective Date of Service: 06/20/21 Reason For Visit: Alcohol use disorder, depression, SI Subjective Notes: Section 12B Interim History: The nursing staff reported the patient was found today lying on his bed for low urine, he was confused and very deconditioned, unable to walk without help. As per the staff, the patient has tried to elope off the unit all weekend but he seems mostly confused and not irritable. Today on interview, the patient was disoriented on place, he did not know that he was on the locked psychiatric unit and he stated that he was doing fine, he adamantly denied depressive symptoms. Review of Systems Acute medical concerns: No Medical Review of Systems: unchanged Mental Status Exam Mental Status Exam Patient Appearance: Disheveled and Unkempt Patient Orientation: Person Level of Consciousness: Drowsy and Disoriented Patient Behavior: Suspicious Mood Description: Constricted Affect Description: Labile Patient Cognition Impaired: Yes Ability to Follow Directions: Good Speech Pattern: Clear Delusions: Paranoid Ideation Thought Process: Illogical and Evasive Thought Content: positive for Obsessional Thoughts, positive for Circumstantial, positive for Perseveration and positive for Poverty of Content Judgement: Poor Diagnostics Vital Signs (24Hr): Vital Signs - 24 hr 06/19/21 18:00 06/20/21 09:13 06/20/21 09:55 Temperature 97.7 F 97.2 F Pulse Rate 98 98 102 H Respiratory Rate 20 16 Blood Pressure 123/69 123/69 101/64 Pulse Oximetry 98 98 96 06/20/21 09:56 Temperature Pulse Rate 102 H Respiratory Rate Blood Pressure 101/64 Pulse Oximetry Body Mass Index 22.8 Labs Results: 06/18/21 11:46 Labs: Laboratory Results - last 48 hr 06/18/21 06/18/21 11:46 11:46 Sodium 136 Potassium 3.9 Chloride 101 Carbon Dioxide 27 Anion Gap 12 BUN 12 Creatinine 0.86 Estim Creat Clear Calc 96.2 Estimated GFR > 60 Random Glucose 68 D Calcium 8.9 D Total Bilirubin 0.7 AST 47 H ALT 64 H Alkaline Phosphatase 162 H D Total Protein 5.8 L D Albumin 3.2 L Vitamin B12 592 Folate > 20.0 Medications Medications Current Medications Generic Name Dose Route Start Last Admin Trade Name Freq PRN Reason Stop Dose Admin Acetaminophen 650 mg 06/16/21 17:29 06/19/21 16:47 Acetaminophen 325 Mg Tablet PO 650 mg Q6H PRN Administration Headache/Pain Mild Scale (1-3) Albuterol Sulfate 2 puff 06/16/21 19:57 Albuterol Sulfate 90 Mcg 8 Gm Inhaler INHALE RQ4H PRN asthma Hydroxyzine HCl 25 mg 06/16/21 17:29 Hydroxyzine Hcl 25 Mg Tablet PO Q6H PRN Anxiety Lurasidone HCl 20 mg 06/16/21 21:00 06/19/21 20:18 Lurasidone Hcl 20 Mg Tablet PO 20 mg BEDTIME DIANE Administration Magnesium Hydroxide 30 ml 06/16/21 17:29 Milk Of Magnesia 30 Ml Oral.Susp PO DAILY PRN Constipation Melatonin 6 mg 06/16/21 19:55 06/19/21 20:18 Melatonin 3 Mg Tablet PO 6 mg BEDTIME PRN Administration Insomnia Midodrine 5 mg 06/17/21 07:30 06/20/21 09:56 Midodrine Hcl 5 Mg Tablet PO 5 mg TIDAC DIANE Administration Multivitamins/Minerals 1 tab 06/17/21 09:00 06/20/21 09:58 Multivitamin With Minerals Tablet PO 1 tab DAILY DIANE Administration Naltrexone HCl 25 mg 06/19/21 14:35 06/20/21 09:56 Naltrexone Hcl 50 Mg Tablet PO 25 mg DAILY DIANE Administration Nicotine 21 mg 06/17/21 09:00 06/20/21 09:57 Nicotine 21 Mg Patch.Td24 TRANSDERMA 21 mg DAILY DIANE Administration Thiamine HCl 100 mg 06/17/21 09:00 06/20/21 09:58 Thiamine Hcl 100 Mg Tablet PO 100 mg DAILY DIANE Administration Trazodone HCl 50 mg 06/16/21 17:29 Trazodone Hcl 50 Mg Tablet PO BEDTIME PRN Insomnia Allergies Allergies Allergy/AdvReac Type Severity Reaction Status Date / Time ibuprofen [IBUPROFEN] Allergy Severe ANAPHYLAXIS Verified 06/11/21 14:23 cat dander [CATS] Allergy Unknown UNKNOWN Verified 06/11/21 14:23 dog dander [DOGS] Allergy Unknown UNKNOWN Verified 06/11/21 14:23 Assessment & Plan Assessment & Plan (1) Alcohol use disorder, severe, dependence: Status: Acute Code(s): F10.20 - Alcohol dependence, uncomplicated (2) Bipolar disorder, current episode depressed, severe, without psychotic fe atures: Status: Acute Code(s): F31.4 - Bipolar disorder, current episode depressed, severe, without psychotic features (3) Cognitive impairment: Status: Acute Code(s): R41.89 - Other symptoms and signs involving cognitive functions and awareness Assessment and Plan: Dat is a 66 y.o. Male who carries a dx of bipolar disorder, alcohol use disorder. He has a long history of depression, alcohol abuse. He presented to [facility] [place] [facility] via section 12a on 06/13/21 after his sister calling EMS due to inability to function, decompensation. He is currently presenting with sx of neurocog nitive impairment/ confusion, depressed mood. Had been drinking daily but denies withdrawal sx, no longer on CIWA protocols, receiving folic acid and thiamine therapy. Has hx of IPLOC on M5 and was diagnosed with bipolar disorder, treated with lithium and zyprexa, hx of ECT for severe depression. Hx of non-adherence with OP psych treatment, no current psychotropic medications. Denies current psychotic sx. Plan: 1. Continue latuda 20 mg QHS for sx of depression, mood stability. 2. Monitor response to medications. 3. Start low dose naltrexon 25mg po daily for alcohol cravings- LFTs elevated b ut less than 3 times normal. Monitor for safety in the milieu. Discharge on stabilization. Patient seen. Chart reviewed. Discussed with team. Obtain collateral contact info?as needed Greater than 50% of the session was spent on counseling and/or coordination of care Reason for contiued inpatient stay Substantial Risk for: harm to self, inability to function, rapid decompensation and med/psych decompensation
[2021-06-20 17:16] VITALS: BP 155/79; PULSE 96; RESP 18; TEMP 36.7; O2SAT 98
[2021-06-20] MEDS: Lurasidone HCl 20 MG TABLET PO (19:38)
[2021-06-20] MEDS: traZODone HCL 50 MG TABLET PO (19:51)
[2021-06-21 06:00] VITALS: BP 133/60; PULSE 80; RESP 22; TEMP 36.9; O2SAT 95
[2021-06-21] MEDS: Nicotine 21 MG PATCH.TD24 TRANSDERMA (08:13)
[2021-06-21 08:14] VITALS: BP 92/54; PULSE 90
[2021-06-21] MEDS: Midodrine HCl 5 MG TABLET PO ×3 (08:14→15:57)
[2021-06-21] MEDS: Thiamine HCL 100 MG TABLET PO (08:17)
[2021-06-21] MEDS: Albuterol Sulfate 90 MCG 8 GM INHALER 2 PUFF INHALE (08:17)
[2021-06-21] MEDS: Naltrexone HCl 50 MG TABLET 25 MG PO (08:20)
[2021-06-21 12:47] VITALS: BP 100/65; PULSE 65
--- NOTE | 2021-06-21 15:05 | P.PNPSI_ITS ---
Subjective Subjective Date of Service: 06/22/21 Reason For Visit: Alcohol use disorder, depression, SI Subjective Notes: Conditional Voluntary Interim History: The patient was found by nursing urinating on another's patient pitcher, redirected. On interview. he denied any symptoms, denies depression but he can't remember previous conversations. Her sister and brother contacted us and reported gross disorganization, chronic alcohol abuse and unable to take care of himself. Medication Compliance: Yes Side effects from medications: No Attending Groups: No Review of Systems Acute medical concerns: No Medical Review of Systems: unchanged Mental Status Exam Mental Status Exam Patient Appearance: Disheveled and Unkempt Patient Orientation: Person Level of Consciousness: Awake Patient Behavior: Cooperative and Distractible Mood Description: Calm Affect Description: Anxious Patient Cognition Impaired: Yes Ability to Follow Directions: Good Speech Pattern: Clear Memory Description: Immediate Impaired and Working Impaired Hallucinations: None Delusions: Paranoid Ideation Thought Process: Distracted and Linear Thought Content: positive for Poverty of Content Judgement: Poor Diagnostics Vital Signs (24Hr): Vital Signs - 24 hr 06/20/21 17:16 06/21/21 06:00 06/21/21 08:14 Temperature 98.0 F 98.4 F Pulse Rate 96 80 90 Respiratory Rate 18 22 H Blood Pressure 155/79 H 133/60 92/54 L Pulse Oximetry 98 95 06/21/21 12:47 Temperature Pulse Rate 65 Respiratory Rate Blood Pressure 100/65 Pulse Oximetry Body Mass Index 22.8 Labs Results: 06/18/21 11:46 Medications Medications Current Medications Generic Name Dose Route Start Last Admin Trade Name Freq PRN Reason Stop Dose Admin Acetaminophen 650 mg 06/16/21 17:29 06/19/21 16:47 Acetaminophen 325 Mg Tablet PO 650 mg Q6H PRN Administration Headache/Pain Mild Scale (1-3) Albuterol Sulfate 2 puff 06/16/21 19:57 06/21/21 08:17 Albuterol Sulfate 90 Mcg 8 Gm Inhaler INHALE 2 puff RQ4H PRN Administration asthma Hydroxyzine HCl 25 mg 06/16/21 17:29 Hydroxyzine Hcl 25 Mg Tablet PO Q6H PRN Anxiety Lurasidone HCl 20 mg 06/16/21 21:00 06/20/21 19:38 Lurasidone Hcl 20 Mg Tablet PO 20 mg BEDTIME DIANE Administration Magnesium Hydroxide 30 ml 06/16/21 17:29 Milk Of Magnesia 30 Ml Oral.Susp PO DAILY PRN Constipation Melatonin 6 mg 06/16/21 19:55 06/19/21 20:18 Melatonin 3 Mg Tablet PO 6 mg BEDTIME PRN Administration Insomnia Midodrine 5 mg 06/17/21 07:30 06/21/21 12:47 Midodrine Hcl 5 Mg Tablet PO 5 mg TIDAC DIANE Administration Multivitamins/Minerals 1 tab 06/17/21 09:00 06/21/21 08:14 Multivitamin With Minerals Tablet PO 1 tab DAILY DIANE Administration Naltrexone HCl 25 mg 06/19/21 14:35 06/21/21 08:20 Naltrexone Hcl 50 Mg Tablet PO 25 mg DAILY DIANE Administration Nicotine 21 mg 06/17/21 09:00 06/21/21 08:13 Nicotine 21 Mg Patch.Td24 TRANSDERMA 21 mg DAILY DIANE Administration Thiamine HCl 100 mg 06/17/21 09:00 06/21/21 08:17 Thiamine Hcl 100 Mg Tablet PO 100 mg DAILY DIANE Administration Trazodone HCl 50 mg 06/16/21 17:29 06/20/21 19:51 Trazodone Hcl 50 Mg Tablet PO 50 mg BEDTIME PRN Administration Insomnia Allergies Allergies Allergy/AdvReac Type Severity Reaction Status Date / Time ibuprofen [IBUPROFEN] Allergy Severe ANAPHYLAXIS Verified 06/11/21 14:23 cat dander [CATS] Allergy Unknown UNKNOWN Verified 06/11/21 14:23 dog dander [DOGS] Allergy Unknown UNKNOWN Verified 06/11/21 14:23 Assessment & Plan Assessment & Plan (1) Alcohol use disorder, severe, dependence: Status: Acute Code(s): F10.20 - Alcohol dependence, uncomplicated (2) Bipolar disorder, current episode depressed, severe, without psychotic features: Status: Acute Code(s): F31.4 - Bipolar disorder, current episode depressed, severe, without psychotic features (3) Cognitive impairment: Status: Acute Code(s): R41.89 - Other symptoms and signs involving cognitive functions and awareness Assessment and Plan: Dat is a 66 y.o. Male who carries a dx of bipolar disorder, alcohol use disorder. He has a long history of depression, alcohol abuse. He presented to [facility] [place] [facility] via section 12a on 06/13/21 after his sister calling EMS due to inability to function, decompensation. He is currently presenting with sx of neurocognitive impairment/ confusion, depressed mood. Had been drinking daily but denies withdrawal sx, no longer on CIWA protocols, receiving folic acid and thiamine therapy. Has hx of IPLOC on M5 and was diagnosed with bipolar disorder, treated with lithium and zyprexa, hx of ECT for severe depression. Hx of non- adherence with OP psych treatment, no current psychotropic medications. Denies current psychotic sx. Plan: 1. Continue same treatment. 2. MRI to R/O Wernicke-Korsakoff syndrome. 3. Family meeting this week. Greater than 50% of the session was spent on counseling and/or coordination of care Reason for contiued inpatient stay Substantial Risk for: harm to self (due to inability to take care of himself), inability to function, rapid decompensation and med/psych decompensation
[2021-06-21 15:57] VITALS: BP 131/67; PULSE 83
[2021-06-21 17:38] VITALS: BP 142/67; PULSE 82; RESP 18; TEMP 36.5; O2SAT 99
[2021-06-21] MEDS: Lurasidone HCl 20 MG TABLET PO (20:53)
[2021-06-21 21:02] VITALS: BP 127/60; PULSE 51; RESP 18; TEMP 37.1; O2SAT 96
[2021-06-22 06:00] VITALS: BP 96/53; PULSE 91; RESP 18; TEMP 36.7; O2SAT 92
[2021-06-22 09:39] VITALS: BP 95/57; PULSE 80
[2021-06-22] MEDS: Nicotine 21 MG PATCH.TD24 TRANSDERMA (09:39)
[2021-06-22] MEDS: Midodrine HCl 5 MG TABLET PO ×3 (09:39→19:49)
[2021-06-22] MEDS: Naltrexone HCl 50 MG TABLET 25 MG PO (09:40)
[2021-06-22] MEDS: Thiamine HCL 100 MG TABLET PO (09:41)
[2021-06-22 10:00] VITALS: BMI 23.3
[2021-06-22 12:23] VITALS: BP 112/64; PULSE 98
--- NOTE | 2021-06-22 14:36 | HO.PSYCHPN ---
Subjective Subjective Date of Service: 06/23/21 Reason For Visit: Alcohol use disorder, depression, SI Subjective Notes: Conditional Voluntary Healthcare Proxy: Yes Interim History: His brother signed since he is the health care proxy. The patient denies new symptoms but he has poor short term memory and he confabultes when talking with him. Very disorganized but pleasant. He has called several acquiatances so they can pick him up and buy alcohol on the way back . He has minimized his substance abuse. The bilingual social worker sopoke with him and confronted his confabulation. Yesterday, we did an MRI to rule out Wernicke-Korsakoff syndrome. Diagnostics Vital Signs (24Hr): Vital Signs - 24 hr 06/21/21 15:57 06/21/21 17:38 06/21/21 21:02 Temperature 97.7 F 98.8 F Pulse Rate 83 82 51 Respiratory Rate 18 18 Blood Pressure 131/67 142/67 H 127/60 Pulse Oximetry 99 96 06/22/21 06:00 06/22/21 09:39 06/22/21 12:23 Temperature 98.1 F Pulse Rate 91 80 98 Respiratory Rate 18 Blood Pressure 96/53 L 95/57 L 112/64 Pulse Oximetry 92 Body Mass Index 22.8 Labs Results: 06/18/21 11:46 Imaging Radiology Impressions: ITS Impressions Brain MRI 06/21/21 20:15 IMPRESSION: 1. No acute intracranial abnormalities. 2. Mild underlying microangiopathy and generalized cerebral volume loss. Medications Medications Current Medications Generic Name Dose Route Start Last Admin Trade Name Freq PRN Reason Stop Dose Admin Acetaminophen 650 mg 06/16/21 17:29 06/19/21 16:47 Acetaminophen 325 Mg Tablet PO 650 mg Q6H PRN Administration Headache/Pain Mild Scale (1-3) Albuterol Sulfate 2 puff 06/16/21 19:57 06/21/21 08:17 Albuterol Sulfate 90 Mcg 8 Gm Inhaler INHALE 2 puff RQ4H PRN Administration asthma Hydroxyzine HCl 25 mg 06/16/21 17:29 Hydroxyzine Hcl 25 Mg Tablet PO Q6H PRN Anxiety Lurasidone HCl 20 mg 06/16/21 21:00 06/21/21 20:53 Lurasidone Hcl 20 Mg Tablet PO 20 mg BEDTIME DIANE Administration Magnesium Hydroxide 30 ml 06/16/21 17:29 Milk Of Magnesia 30 Ml Oral.Susp PO DAILY PRN Constipation Melatonin 6 mg 06/16/21 19:55 06/19/21 20:18 Melatonin 3 Mg Tablet PO 6 mg BEDTIME PRN Administration Insomnia Midodrine 5 mg 06/17/21 07:30 06/22/21 12:23 Midodrine Hcl 5 Mg Tablet PO 5 mg TIDAC DIANE Administration Multivitamins/Minerals 1 tab 06/17/21 09:00 06/22/21 09:41 Multivitamin With Minerals Tablet PO 1 tab DAILY DIANE Administration Naltrexone HCl 25 mg 06/19/21 14:35 06/22/21 09:40 Naltrexone Hcl 50 Mg Tablet PO 25 mg DAILY DIANE Administration Nicotine 21 mg 06/17/21 09:00 06/22/21 09:39 Nicotine 21 Mg Patch.Td24 TRANSDERMA 21 mg DAILY DIANE Administration Thiamine HCl 100 mg 06/17/21 09:00 06/22/21 09:41 Thiamine Hcl 100 Mg Tablet PO 100 mg DAILY DIANE Administration Trazodone HCl 50 mg 06/16/21 17:29 06/20/21 19:51 Trazodone Hcl 50 Mg Tablet PO 50 mg BEDTIME PRN Administration Insomnia Allergies Allergies Allergy/AdvReac Type Severity Reaction Status Date / Time ibuprofen [IBUPROFEN] Allergy Severe ANAPHYLAXIS Verified 06/11/21 14:23 cat dander [CATS] Allergy Unknown UNKNOWN Verified 06/11/21 14:23 dog dander [DOGS] Allergy Unknown UNKNOWN Verified 06/11/21 14:23 Assessment & Plan Assessment & Plan (1) Alcohol use disorder, severe, dependence: Status: Acute Code(s): F10.20 - Alcohol dependence, uncomplicated (2) Bipolar disorder, current episode depressed, severe, without psychotic features: Status: Acute Code(s): F31.4 - Bipolar disorder, current episode depressed, severe, without psychotic features (3) Cognitive impairment: Status: Acute Code(s): R41.89 - Other symptoms and signs involving cognitive functions and awareness Assessment and Plan: Dat is a 66 y.o. Male who carries a dx of bipolar disorder, alcohol use disorder. He has a long history of depression, alcohol abuse. He [place] [facility] via section 12a on 06/13/21 after his sister calling EMS due to inability to function, decompensation. He is currently presenting with sx of neurocognitive impairment/ confusion, depressed mood. Had been drinking daily but denies withdrawal sx, no longer on CIWA protocols, receiving folic acid and thiamine therapy. Has hx of IPLOC on M5 and was diagnosed with bipolar disorder, treated with lithium and zyprexa, hx of ECT for severe depression. Hx of non-adherence with OP psych treatment, no current psychotropic medications. Denies current psychotic sx. Plan: 1. Continue same treatment. 2. MRI to R/O Wernicke-Korsakoff syndrome. 3. Family meeting this week. Greater than 50% of the session was spent on counseling and/or coordination of care Reason for contiued inpatient stay Substantial Risk for: inability to function, rapid decompensation and med/psych decompensation
[2021-06-22] MEDS: Lurasidone HCl 20 MG TABLET PO (19:46)
[2021-06-22 20:50] VITALS: BP 115/57; PULSE 78; RESP 18; TEMP 36.6; O2SAT 97
[2021-06-22] MEDS: Melatonin 3 MG TABLET 6 MG PO (21:50)
[2021-06-23 08:00] VITALS: BP 131/70; PULSE 68; RESP 18; TEMP 36.7
[2021-06-23] MEDS: Naltrexone HCl 50 MG TABLET 25 MG PO (08:40)
[2021-06-23] MEDS: Thiamine HCL 100 MG TABLET PO (08:40)
[2021-06-23] MEDS: Nicotine 21 MG PATCH.TD24 TRANSDERMA (08:40)
[2021-06-23 08:41] VITALS: BP 131/70; PULSE 89
[2021-06-23] MEDS: Midodrine HCl 5 MG TABLET PO ×3 (08:41→16:40)
[2021-06-23 11:15] VITALS: BP 105/62; PULSE 66
--- NOTE | 2021-06-23 13:09 | P.PNPSI_ITS ---
Subjective Subjective Date of Service: 06/23/21 Reason For Visit: Alcohol use disorder, depression, SI Subjective Notes: Conditional Voluntary Healthcare Proxy: Yes Guardianship: No Medical Problems Affecting Mental Status: No Interim History: The nursing staff reported that the patient has been confused at times. He has been incontinent over the night. OT reported that he has ? in the [place]. We had a family meeting today with his brother and sister and the acknowledge a long history of substance abuse mostly alcohol. The patient is very well articulated but he has no insight and no intent to stop drinking. We discuss the results of the MRI and it seems that he has chronic lesions but no pathognomonic destruction of the marcel. His sister reported that the house is condemned due to the feces and poor care due to his substance abuse. At this moment the patient is homeless Medication Compliance: Yes Side effects from medications: No Attending Groups: No Review of Systems Acute medical concerns: No Medical Review of Systems: unchanged Mental Status Exam Mental Status Exam Patient Appearance: Disheveled and Unkempt Patient Orientation: Person Level of Consciousness: Awake Patient Behavior: Passive Mood Description: Withdrawn Affect Description: Constricted Patient Cognition Impaired: Yes Ability to Follow Directions: Good Speech Pattern: Clear Hallucinations: None Delusions: Not Present Thought Process: Slowed Thinking Thought Content: positive for Poverty of Content Judgement: Fair Diagnostics Vital Signs (24Hr): Vital Signs - 24 hr 06/22/21 20:50 06/23/21 08:00 06/23/21 08:41 Temperature 98 F 98.1 F Pulse Rate 78 68 89 Respiratory Rate 18 18 Blood Pressure 115/57 L 131/70 131/70 Pulse Oximetry 97 06/23/21 11:15 Temperature Pulse Rate 66 Respiratory Rate Blood Pressure 105/62 Pulse Oximetry Body Mass Index 23.3 Labs Results: 06/18/21 11:46 Imaging Radiology Impressions: ITS Impressions Brain MRI 06/21/21 20:15 IMPRESSION: 1. No acute intracranial abnormalities. 2. Mild underlying microangiopathy and generalized cerebral volume loss. Medications Medications Current Medications Generic Name Dose Route Start Last Admin Trade Name Freq PRN Reason Stop Dose Admin Acetaminophen 650 mg 06/16/21 17:29 06/19/21 16:47 Acetaminophen 325 Mg Tablet PO 650 mg Q6H PRN Administration Headache/Pain Mild Scale (1-3) Albuterol Sulfate 2 puff 06/16/21 19:57 06/21/21 08:17 Albuterol Sulfate 90 Mcg 8 Gm Inhaler INHALE 2 puff RQ4H PRN Administration asthma Hydroxyzine HCl 25 mg 06/16/21 17:29 Hydroxyzine Hcl 25 Mg Tablet PO Q6H PRN Anxiety Lurasidone HCl 20 mg 06/16/21 21:00 06/22/21 19:46 Lurasidone Hcl 20 Mg Tablet PO 20 mg BEDTIME DIANE Administration Magnesium Hydroxide 30 ml 06/16/21 17:29 Milk Of Magnesia 30 Ml Oral.Susp PO DAILY PRN Constipation Melatonin 6 mg 06/16/21 19:55 06/22/21 21:50 Melatonin 3 Mg Tablet PO 6 mg BEDTIME PRN Administration Insomnia Midodrine 5 mg 06/17/21 07:30 06/23/21 11:15 Midodrine Hcl 5 Mg Tablet PO 5 mg TIDAC DIANE Administration Multivitamins/Minerals 1 tab 06/17/21 09:00 06/23/21 08:40 Multivitamin With Minerals Tablet PO 1 tab DAILY DIANE Administration Naltrexone HCl 25 mg 06/19/21 14:35 06/23/21 08:40 Naltrexone Hcl 50 Mg Tablet PO 25 mg DAILY DIANE Administration Nicotine 21 mg 06/17/21 09:00 06/23/21 08:40 Nicotine 21 Mg Patch.Td24 TRANSDERMA 21 mg DAILY DIANE Administration Thiamine HCl 100 mg 06/17/21 09:00 06/23/21 08:40 Thiamine Hcl 100 Mg Tablet PO 100 mg DAILY DIANE Administration Trazodone HCl 50 mg 06/16/21 17:29 06/20/21 19:51 Trazodone Hcl 50 Mg Tablet PO 50 mg BEDTIME PRN Administration Insomnia Allergies Allergies Allergy/AdvReac Type Severity Reaction Status Date / Time ibuprofen [IBUPROFEN] Allergy Severe ANAPHYLAXIS Verified 06/11/21 14:23 cat dander [CATS] Allergy Unknown UNKNOWN Verified 06/11/21 14:23 dog dander [DOGS] Allergy Unknown UNKNOWN Verified 06/11/21 14:23 Assessment & Plan Assessment & Plan (1) Alcohol use disorder, severe, dependence: Status: Acute Code(s): F10.20 - Alcohol dependence, uncomplicated (2) Bipolar disorder, current episode depressed, severe, without psychotic features: Status: Acute Code(s): F31.4 - Bipolar disorder, current episode depressed, severe, without psychotic features (3) Cognitive impairment: Status: Acute Code(s): R41.89 - Other symptoms and signs involving cognitive functions and awareness Assessment and Plan: Dat is a 66 y.o. Male who carries a dx of bipolar disorder, alcohol use disorder. He has a long history of depression, alcohol abuse. He presented to [facility] via section 12a on 06/13/21 after his sister calling EMS due to inability to function, decompensation. He is currently presenting with sx of neurocognitive impairment/ confusion, depressed mood. Had been drinking daily but denies withdrawal sx, no longer on CIWA protocols, receiving folic acid and thiamine therapy. Has hx of IPLOC on M5 and was diagnosed with bipolar disorder, treated with lithium and zyprexa, hx of ECT for severe depression. Hx of non- adherence with OP psych treatment, no current psychotropic medications. Denies current psychotic sx. Plan: 1. Continue same treatment. 2. F/U with for safe discharge. Greater than 50% of the session was spent on counseling and/or coordination of care Reason for contiued inpatient stay Substantial Risk for: inability to function, rapid decompensation and med/psych decompensation
[2021-06-23 16:40] VITALS: BP 110/78; PULSE 68
[2021-06-23 18:00] VITALS: BP 127/72; PULSE 72; RESP 20; TEMP 36.3; O2SAT 96
[2021-06-23] MEDS: Lurasidone HCl 20 MG TABLET PO (20:40)
[2021-06-23] MEDS: Melatonin 3 MG TABLET 6 MG PO (22:24)
[2021-06-24 06:00] VITALS: BP 136/68; PULSE 84; RESP 18; TEMP 36.4; O2SAT 97
[2021-06-24 08:45] VITALS: BP 136/68; PULSE 84
[2021-06-24] MEDS: Midodrine HCl 5 MG TABLET PO ×3 (08:45→16:26)
[2021-06-24] MEDS: Thiamine HCL 100 MG TABLET PO (08:46)
[2021-06-24] MEDS: Naltrexone HCl 50 MG TABLET 25 MG PO (08:46)
[2021-06-24] MEDS: Nicotine 21 MG PATCH.TD24 TRANSDERMA (08:50)
[2021-06-24 12:42] VITALS: BP 124/62; PULSE 72
--- NOTE | 2021-06-24 13:32 | P.PNPSI_ITS ---
Subjective Subjective Date of Service: 06/24/21 Reason For Visit: Alcohol use disorder, depression, SI Interim History: Patient seen. He says he is feeling well. Says he is here due to back pain. He has little insight. He has no SI. He denies hallucinations. Mental Status Exam Mental Status Exam Narrative: Appearance: casually groomed, fair hygiene in NAD Behavior:cooperative psychomotor: no agitation or retardation noted Speech:clear, normal rate/rhythm/volume, spontaneous Thought process: Thought content:no overt delusional content, not oriented to situation Mood: okay Affect: congruent SI:denies HI:denies VH/AH:none Delusions:none Insight/judgment:impaired x 2. Memory/cog: alert, oriented to month, year, date, but not situation. Had MOCA on 06/13 score of 21/30, most impairment in executive function, recall- I do suspect his actual ability of current functioning is much more impaired and significant than mild cognitive impairment. Patient Appearance: Disheveled and Unkempt Patient Orientation: Person Level of Consciousness: Awake Patient Behavior: Passive Mood Description: Withdrawn Affect Description: Constricted Patient Cognition Impaired: Yes Ability to Follow Directions: Good Speech Pattern: Clear Memory Description: Immediate Impaired and Working Impaired Diagnostics Vital Signs (24Hr): Vital Signs - 24 hr 06/23/21 16:40 06/23/21 18:00 06/24/21 06:00 Temperature 97.3 F 97.6 F Pulse Rate 68 72 84 Respiratory Rate 20 18 Blood Pressure 110/78 127/72 136/68 Pulse Oximetry 96 97 06/24/21 08:45 06/24/21 12:42 Temperature Pulse Rate 84 72 Respiratory Rate Blood Pressure 136/68 124/62 Pulse Oximetry Body Mass Index 23.3 Labs Results: 06/18/21 11:46 Imaging Radiology Impressions: ITS Impressions Brain MRI 06/21/21 20:15 IMPRESSION: 1. No acute intracranial abnormalities. 2. Mild underlying microangiopathy and generalized cerebral volume loss. Medications Medications Current Medications Generic Name Dose Route Start Last Admin Trade Name Freq PRN Reason Stop Dose Admin Acetaminophen 650 mg 06/16/21 17:29 06/19/21 16:47 Acetaminophen 325 Mg Tablet PO 650 mg Q6H PRN Administration Headache/Pain Mild Scale (1-3) Albuterol Sulfate 2 puff 06/16/21 19:57 06/21/21 08:17 Albuterol Sulfate 90 Mcg 8 Gm Inhaler INHALE 2 puff RQ4H PRN Administration asthma Hydroxyzine HCl 25 mg 06/16/21 17:29 Hydroxyzine Hcl 25 Mg Tablet PO Q6H PRN Anxiety Lurasidone HCl 20 mg 06/16/21 21:00 06/23/21 20:40 Lurasidone Hcl 20 Mg Tablet PO 20 mg BEDTIME DIANE Administration Magnesium Hydroxide 30 ml 06/16/21 17:29 Milk Of Magnesia 30 Ml Oral.Susp PO DAILY PRN Constipation Melatonin 6 mg 06/16/21 19:55 06/23/21 22:24 Melatonin 3 Mg Tablet PO 6 mg BEDTIME PRN Administration Insomnia Midodrine 5 mg 06/17/21 07:30 06/24/21 12:42 Midodrine Hcl 5 Mg Tablet PO 5 mg TIDAC DIANE Administration Multivitamins/Minerals 1 tab 06/17/21 09:00 06/24/21 08:46 Multivitamin With Minerals Tablet PO 1 tab DAILY DIANE Administration Naltrexone HCl 25 mg 06/19/21 14:35 06/24/21 08:46 Naltrexone Hcl 50 Mg Tablet PO 25 mg DAILY DIANE Administration Nicotine 21 mg 06/17/21 09:00 06/24/21 08:50 Nicotine 21 Mg Patch.Td24 TRANSDERMA 21 mg DAILY DIANE Administration Thiamine HCl 100 mg 06/17/21 09:00 06/24/21 08:46 Thiamine Hcl 100 Mg Tablet PO 100 mg DAILY DIANE Administration Trazodone HCl 50 mg 06/16/21 17:29 06/20/21 19:51 Trazodone Hcl 50 Mg Tablet PO 50 mg BEDTIME PRN Administration Insomnia Allergies Allergies Allergy/AdvReac Type Severity Reaction Status Date / Time ibuprofen [IBUPROFEN] Allergy Severe ANAPHYLAXIS Verified 06/11/21 14:23 cat dander [CATS] Allergy Unknown UNKNOWN Verified 06/11/21 14:23 dog dander [DOGS] Allergy Unknown UNKNOWN Verified 06/11/21 14:23 Assessment & Plan Assessment & Plan (1) Alcohol use disorder, severe, dependence: Status: Acute Code(s): F10.20 - Alcohol dependence, uncomplicated (2) Bipolar disorder, current episode depressed, severe, without psychotic features: Status: Acute Code(s): F31.4 - Bipolar disorder, current episode depressed, severe, without psychotic features (3) Cognitive impairment: Status: Acute Code(s): R41.89 - Other symptoms and signs involving cognitive functions and awareness Assessment and Plan: Dat is a 66 y.o. Male who carries a dx of bipolar disorder, alcohol use disorder. He has a long history of depression, alcohol abuse. He presented to [facility] via section 12a on 06/13/21 after his sister calling EMS due to inability to function, decompensation. He is currently presenting with sx of neurocognitive impairment/ confusion, depressed mood. Had been drinking daily but denies withdrawal sx, no longer on CIWA protocols, receiving folic acid and thiamine therapy. Has hx of IPLOC on M5 and was diagnosed with bipolar disorder, treated with lithium and zyprexa, hx of ECT for severe depression. Hx of non- adherence with OP psych treatment, no current psychotropic medications. Denies current psychotic sx. Plan: 1. Continue same treatment. 2. F/U with for safe discharge. Greater than 50% of the session was spent on counseling and/or coordination of care Reason for contiued inpatient stay Substantial Risk for: inability to function and rapid decompensation
[2021-06-24 16:26] VITALS: BP 131/67; PULSE 88
[2021-06-24 18:00] VITALS: BP 133/67; PULSE 77; RESP 18; TEMP 36.2; O2SAT 98
[2021-06-24] MEDS: Lurasidone HCl 20 MG TABLET PO (19:22)
[2021-06-24] MEDS: Acetaminophen 325 MG TABLET 650 MG PO (19:22)
[2021-06-24] MEDS: Melatonin 3 MG TABLET 6 MG PO (19:22)
[2021-06-25 08:21] VITALS: BP 124/62; PULSE 84; RESP 17; TEMP 36.3; O2SAT 96
[2021-06-25] MEDS: Thiamine HCL 100 MG TABLET PO (08:24)
[2021-06-25] MEDS: Naltrexone HCl 50 MG TABLET 25 MG PO (08:24)
[2021-06-25] MEDS: Acetaminophen 325 MG TABLET 650 MG PO ×3 (08:25→21:51)
[2021-06-25] MEDS: Nicotine 21 MG PATCH.TD24 TRANSDERMA (08:26)
[2021-06-25 13:18] VITALS: BP 124/62; PULSE 84
[2021-06-25 13:22] VITALS: BP 122/58; PULSE 82
[2021-06-25 16:19] VITALS: BP 134/70; PULSE 76; RESP 18; O2SAT 96
[2021-06-25 16:38] VITALS: BP 134/70; PULSE 76
--- NOTE | 2021-06-25 17:51 | P.PNPSI_ITS ---
Subjective Subjective Date of Service: 06/25/21 Reason For Visit: Alcohol use disorder, depression, SI Interim History: Patient seen. He says he is feeling well. 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 He has no SI. He denies hallucinations. His BP has been good. Will hold Midodrine and watch BP. Mental Status Exam Mental Status Exam Narrative: Appearance: casually groomed, fair hygiene in NAD Behavior:cooperative psychomotor: no agitation or retardation noted Speech:clear, normal rate/rhythm/volume, spontaneous Thought process: Thought content:no overt delusional content, not oriented to situation Mood: okay Affect: congruent SI:denies HI:denies VH/AH:none Delusions:none Insight/judgment:impaired x 2. Memory/cog: alert, oriented to month, year, date, but not situation. Had MOCA on 06/13 score of 21/30, most impairment in executive function, recall- I do suspect his actual ability of current functioning is much more impaired and significant than mild cognitive impairment. Patient Appearance: Disheveled and Unkempt Patient Orientation: Person Level of Consciousness: Awake Patient Behavior: Passive Mood Description: Withdrawn Affect Description: Constricted Patient Cognition Impaired: Yes Ability to Follow Directions: Good Speech Pattern: Clear Memory Description: Immediate Impaired and Working Impaired Diagnostics Vital Signs (24Hr): Vital Signs - 24 hr 06/24/21 18:00 06/25/21 08:21 06/25/21 13:18 Temperature 97.2 F 97.4 F Pulse Rate 77 84 84 Respiratory Rate 18 17 Blood Pressure 133/67 124/62 124/62 Pulse Oximetry 98 96 06/25/21 13:22 06/25/21 16:19 06/25/21 16:38 Temperature Pulse Rate 82 76 76 Respiratory Rate 18 Blood Pressure 122/58 L 134/70 134/70 Pulse Oximetry 96 Body Mass Index 23.3 Labs Results: 06/18/21 11:46 Imaging Radiology Impressions: ITS Impressions Brain MRI 06/21/21 20:15 IMPRESSION: 1. No acute intracranial abnormalities. 2. Mild underlying microangiopathy and generalized cerebral volume loss. Medications Medications Current Medications Generic Name Dose Route Start Last Admin Trade Name Freq PRN Reason Stop Dose Admin Acetaminophen 650 mg 06/16/21 17:29 06/25/21 16:18 Acetaminophen 325 Mg Tablet PO 650 mg Q6H PRN Administration Headache/Pain Mild Scale (1-3) Albuterol Sulfate 2 puff 06/16/21 19:57 06/21/21 08:17 Albuterol Sulfate 90 Mcg 8 Gm Inhaler INHALE 2 puff RQ4H PRN Administration asthma Hydroxyzine HCl 25 mg 06/16/21 17:29 Hydroxyzine Hcl 25 Mg Tablet PO Q6H PRN Anxiety Lurasidone HCl 20 mg 06/16/21 21:00 06/24/21 19:22 Lurasidone Hcl 20 Mg Tablet PO 20 mg BEDTIME DIANE Administration Magnesium Hydroxide 30 ml 06/16/21 17:29 Milk Of Magnesia 30 Ml Oral.Susp PO DAILY PRN Constipation Melatonin 6 mg 06/16/21 19:55 06/24/21 19:22 Melatonin 3 Mg Tablet PO 6 mg BEDTIME PRN Administration Insomnia Midodrine 5 mg 06/17/21 07:30 06/25/21 16:38 Midodrine Hcl 5 Mg Tablet PO Not Given TIDAC [facility] Multivitamins/Minerals 1 tab 06/17/21 09:00 06/25/21 08:24 Multivitamin With Minerals Tablet PO 1 tab DAILY DIANE Administration Naltrexone HCl 25 mg 06/19/21 14:35 06/25/21 08:24 Naltrexone Hcl 50 Mg Tablet PO 25 mg DAILY DIANE Administration Nicotine 21 mg 06/17/21 09:00 06/25/21 08:26 Nicotine 21 Mg Patch.Td24 TRANSDERMA 21 mg DAILY DIANE Administration Thiamine HCl 100 mg 06/17/21 09:00 06/25/21 08:24 Thiamine Hcl 100 Mg Tablet PO 100 mg DAILY DIANE Administration Trazodone HCl 50 mg 06/16/21 17:29 06/20/21 19:51 Trazodone Hcl 50 Mg Tablet PO 50 mg BEDTIME PRN Administration Insomnia Allergies Allergies Allergy/AdvReac Type Severity Reaction Status Date / Time ibuprofen [IBUPROFEN] Allergy Severe ANAPHYLAXIS Verified 06/11/21 14:23 cat dander [CATS] Allergy Unknown UNKNOWN Verified 06/11/21 14:23 dog dander [DOGS] Allergy Unknown UNKNOWN Verified 06/11/21 14:23 Assessment & Plan Assessment & Plan (1) Alcohol use disorder, severe, dependence: Status: Acute Code(s): F10.20 - Alcohol dependence, uncomplicated (2) Bipolar disorder, current episode depressed, severe, without psychotic features: Status: Acute Code(s): F31.4 - Bipolar disorder, current episode depressed, severe, without psychotic features (3) Cognitive impairment: Status: Acute Code(s): R41.89 - Other symptoms and signs involving cognitive functions and awareness Assessment and Plan: Dat is a 66 y.o. Male who carries a dx of bipolar disorder, alcohol use disorder. He has a long history of depression, alcohol abuse. He presented to [facility] via section 12a on 06/13/21 after his sister calling EMS due to inability to function, decompensation. He is currently presenting with sx of neurocogniti ve impairment/ confusion, depressed mood. Had been drinking daily but denies withdrawal sx, no longer on CIWA protocols, receiving folic acid and thiamine therapy. Has hx of IPLOC on M5 and was diagnosed with bipolar disorder, treated with lithium and zyprexa, hx of ECT for severe depression. Hx of non-adherence with OP psych treatment, no current psychotropic medications. Denies current psychotic sx. Plan: 1. Continue same treatment. 2. F/U with for safe discharge. 3. Hold Midodrine as BP has been stable and he is not hypotensive Greater than 50% of the session was spent on counseling and/or coordination of care Reason for contiued inpatient stay Substantial Risk for: inability to function and rapid decompensation
[2021-06-25 18:00] VITALS: BP 133/63; PULSE 82; RESP 18; TEMP 36.3; O2SAT 98
[2021-06-25] MEDS: Lurasidone HCl 20 MG TABLET PO (19:55)
[2021-06-25] MEDS: Melatonin 3 MG TABLET 6 MG PO (20:51)
[2021-06-26] MEDS: Naltrexone HCl 50 MG TABLET 25 MG PO (08:09)
[2021-06-26] MEDS: Thiamine HCL 100 MG TABLET PO (08:10)
--- NOTE | 2021-06-26 08:20 | HO.PSYCHPN ---
Subjective Subjective Date of Service: 06/26/21 Reason For Visit: Alcohol use disorder, depression, SI Subjective Notes: Conditional Voluntary Interim History: The nursing staff reported that the patient over the weekend, he has not participated on groups, seclusive most of the time. No incontinence reported. SW reported that his sister is checking the advance of the cleaning of his apartment. Today, he denied new symptoms, wants to go back to his place, no insight into his alcohol use disorder. Looks confused and confabulates. Medication Compliance: Yes Attending Groups: No Review of Systems Acute medical concerns: No Medical Review of Systems: unchanged Mental Status Exam Mental Status Exam Patient Appearance: Disheveled Patient Orientation: Person Level of Consciousness: Awake Patient Behavior: Cooperative and Suspicious Mood Description: Withdrawn Affect Description: Constricted Patient Cognition Impaired: Yes Ability to Follow Directions: Good Speech Pattern: Clear Hallucinations: None Delusions: Not Present Thought Process: Distracted and Slowed Thinking Thought Content: positive for Circumstantial Judgement: Poor Diagnostics Vital Signs (24Hr): Vital Signs - 24 hr 06/25/21 08:21 06/25/21 13:18 06/25/21 13:22 Temperature 97.4 F Pulse Rate 84 84 82 Respiratory Rate 17 Blood Pressure 124/62 124/62 122/58 L Pulse Oximetry 96 06/25/21 16:19 06/25/21 16:38 06/25/21 18:00 Temperature 97.4 F Pulse Rate 76 76 82 Respiratory Rate 18 18 Blood Pressure 134/70 134/70 133/63 Pulse Oximetry 96 98 Body Mass Index 23.3 Labs Results: 06/18/21 11:46 Imaging Radiology Impressions: ITS Impressions Brain MRI 06/21/21 20:15 IMPRESSION: 1. No acute intracranial abnormalities. 2. Mild underlying microangiopathy and generalized cerebral volume loss. Medications Medications Current Medications Generic Name Dose Route Start Last Admin Trade Name Freq PRN Reason Stop Dose Admin Acetaminophen 650 mg 06/16/21 17:29 06/25/21 21:51 Acetaminophen 325 Mg Tablet PO 650 mg Q6H PRN Administration Headache/Pain Mild Scale (1-3) Albuterol Sulfate 2 puff 06/16/21 19:57 06/21/21 08:17 Albuterol Sulfate 90 Mcg 8 Gm Inhaler INHALE 2 puff RQ4H PRN Administration asthma Hydroxyzine HCl 25 mg 06/16/21 17:29 Hydroxyzine Hcl 25 Mg Tablet PO Q6H PRN Anxiety Lurasidone HCl 20 mg 06/16/21 21:00 06/25/21 19:55 Lurasidone Hcl 20 Mg Tablet PO 20 mg BEDTIME DIANE Administration Magnesium Hydroxide 30 ml 06/16/21 17:29 Milk Of Magnesia 30 Ml Oral.Susp PO DAILY PRN Constipation Melatonin 6 mg 06/16/21 19:55 06/25/21 20:51 Melatonin 3 Mg Tablet PO 6 mg BEDTIME PRN Administration Insomnia Midodrine 5 mg 06/17/21 07:30 06/25/21 16:38 Midodrine Hcl 5 Mg Tablet PO Not Given TIDAC DIANE Multivitamins/Minerals 1 tab 06/17/21 09:00 06/26/21 08:09 Multivitamin With Minerals Tablet PO 1 tab DAILY DIANE Administration Naltrexone HCl 25 mg 06/19/21 14:35 06/26/21 08:09 Naltrexone Hcl 50 Mg Tablet PO 25 mg DAILY DIANE Administration Nicotine 21 mg 06/17/21 09:00 06/25/21 08:26 Nicotine 21 Mg Patch.Td24 TRANSDERMA 21 mg DAILY DIANE Administration Thiamine HCl 100 mg 06/17/21 09:00 06/26/21 08:10 Thiamine Hcl 100 Mg Tablet PO 100 mg DAILY DIANE Administration Trazodone HCl 50 mg 06/16/21 17:29 06/20/21 19:51 Trazodone Hcl 50 Mg Tablet PO 50 mg BEDTIME PRN Administration Insomnia Allergies Allergies Allergy/AdvReac Type Severity Reaction Status Date / Time ibuprofen [IBUPROFEN] Allergy Severe ANAPHYLAXIS Verified 06/11/21 14:23 cat dander [CATS] Allergy Unknown UNKNOWN Verified 06/11/21 14:23 dog dander [DOGS] Allergy Unknown UNKNOWN Verified 06/11/21 14:23 Assessment & Plan Assessment & Plan (1) Alcohol use disorder, severe, dependence: Status: Acute Code(s): F10.20 - Alcohol dependence, uncomplicated (2) Bipolar disorder, current episode depressed, severe, without psychotic features: Status: Acute Code(s): F31.4 - Bipolar disorder, current episode depressed, severe, without psychotic features (3) Cognitive impairment: Status: Acute Code(s): R41.89 - Other symptoms and signs involving cognitive functions and awareness Assessment and Plan: Dat is a 66 y.o. Male who carries a dx of bipolar disorder, alcohol use disorder. He has a long history of depression, alcohol abuse. He presented to [facility] via section 12a on 06/13/21 after his sister calling EMS due to inability to function, decompensation. He is currently presenting with sx of neurocognitive impairment/ confusion, depressed mood. Had been drinking daily but denies withdrawal sx, no longer on CIWA protocols, receiving folic acid and thiamine therapy. Has hx of IPLOC on M5 and was diagnosed with bipolar disorder, treated with lithium and zyprexa, hx of ECT for severe depression. Hx of non-adherence with OP psych treatment, no current psychotropic medications. Denies current psychotic sx. Plan: 1. Continue same treatment. 2. F/U with SW for safe discharge. 3. Hold Midodrine as BP has been stable and he is not hypotensive Greater than 50% of the session was spent on counseling and/or coordination of care Reason for contiued inpatient stay Substantial Risk for: inability to function, rapid decompensation and med/psych decompensation
[2021-06-26] MEDS: Nicotine 21 MG PATCH.TD24 TRANSDERMA (09:44)
[2021-06-26 10:25] VITALS: BP 124/65; PULSE 76; RESP 16; TEMP 37.1; O2SAT 98
[2021-06-26] MEDS: Lurasidone HCl 20 MG TABLET PO (19:58)
[2021-06-26 21:35] VITALS: RESP 17
[2021-06-26] MEDS: Melatonin 3 MG TABLET 6 MG PO (22:48)
[2021-06-26] MEDS: Acetaminophen 325 MG TABLET 650 MG PO (22:50)
[2021-06-27 06:00] VITALS: BP 154/76; PULSE 90; RESP 18; TEMP 36.2; O2SAT 96
[2021-06-27 09:43] VITALS: BP 154/76; PULSE 90; O2SAT 96
[2021-06-27] MEDS: Thiamine HCL 100 MG TABLET PO (09:45)
[2021-06-27] MEDS: Naltrexone HCl 50 MG TABLET 25 MG PO (09:45)
[2021-06-27] MEDS: Nicotine 21 MG PATCH.TD24 TRANSDERMA (09:46)
--- NOTE | 2021-06-27 12:27 | P.PNPSI_ITS ---
Subjective Subjective Date of Service: 06/27/21 Reason For Visit: Alcohol use disorder, depression, SI Subjective Notes: Conditional Voluntary Interim History: The nursing staff reported that the patient remains most of the time on his room, he has been continent and on interview, he denied new symptoms, stating that he is doing fine. He was unable to report why he was in the hospital, he confabulates with this prescriber. Medication Compliance: Yes Side effects from medications: No Attending Groups: No Review of Systems Acute medical concerns: No Medical Review of Systems: unchanged Mental Status Exam Mental Status Exam Patient Appearance: Disheveled (on hospital gowns) and Unkempt Patient Orientation: Person Level of Consciousness: Awake Patient Behavior: Cooperative Mood Description: Flat Affect Description: Appropriate Patient Cognition Impaired: Yes Ability to Follow Directions: Good Speech Pattern: Clear Hallucinations: None Delusions: Not Present Thought Process: Distracted Thought Content: positive for Poverty of Content Judgement: Poor Diagnostics Vital Signs (24Hr): Vital Signs - 24 hr 06/26/21 21:35 06/27/21 06:00 06/27/21 09:43 Temperature 97.1 F Pulse Rate 90 90 Respiratory Rate 17 18 Blood Pressure 154/76 H 154/76 H Pulse Oximetry 96 96 Body Mass Index 23.3 Labs Results: 06/18/21 11:46 Imaging Radiology Impressions: ITS Impressions Brain MRI 06/21/21 20:15 IMPRESSION: 1. No acute intracranial abnormalities. 2. Mild underlying microangiopathy and generalized cerebral volume loss. Medications Medications Current Medications Generic Name Dose Route Start Last Admin Trade Name Freq PRN Reason Stop Dose Admin Acetaminophen 650 mg 06/16/21 17:29 06/26/21 22:50 Acetaminophen 325 Mg Tablet PO 650 mg Q6H PRN Administration Headache/Pain Mild Scale (1-3) Albuterol Sulfate 2 puff 06/16/21 19:57 06/21/21 08:17 Albuterol Sulfate 90 Mcg 8 Gm Inhaler INHALE 2 puff RQ4H PRN Administration asthma Hydroxyzine HCl 25 mg 06/16/21 17:29 Hydroxyzine Hcl 25 Mg Tablet PO Q6H PRN Anxiety Lurasidone HCl 20 mg 06/16/21 21:00 06/26/21 19:58 Lurasidone Hcl 20 Mg Tablet PO 20 mg BEDTIME DIANE Administration Magnesium Hydroxide 30 ml 06/16/21 17:29 Milk Of Magnesia 30 Ml Oral.Susp PO DAILY PRN Constipation Melatonin 6 mg 06/16/21 19:55 06/26/21 22:48 Melatonin 3 Mg Tablet PO 6 mg BEDTIME PRN Administration Insomnia Midodrine 5 mg 06/17/21 07:30 06/25/21 16:38 Midodrine Hcl 5 Mg Tablet PO Not Given TIDAC DIANE Multivitamins/Minerals 1 tab 06/17/21 09:00 06/27/21 09:45 Multivitamin With Minerals Tablet PO 1 tab DAILY DIANE Administration Naltrexone HCl 25 mg 06/19/21 14:35 06/27/21 09:45 Naltrexone Hcl 50 Mg Tablet PO 25 mg DAILY DIANE Administration Nicotine 21 mg 06/17/21 09:00 06/27/21 09:46 Nicotine 21 Mg Patch.Td24 TRANSDERMA 21 mg DAILY DIANE Administration Thiamine HCl 100 mg 06/17/21 09:00 06/27/21 09:45 Thiamine Hcl 100 Mg Tablet PO 100 mg DAILY DIANE Administration Trazodone HCl 50 mg 06/16/21 17:29 06/20/21 19:51 Trazodone Hcl 50 Mg Tablet PO 50 mg BEDTIME PRN Administration Insomnia Allergies Allergies Allergy/AdvReac Type Severity Reaction Status Date / Time ibuprofen [IBUPROFEN] Allergy Severe ANAPHYLAXIS Verified 06/11/21 14:23 cat dander [CATS] Allergy Unknown UNKNOWN Verified 06/11/21 14:23 dog dander [DOGS] Allergy Unknown UNKNOWN Verified 06/11/21 14:23 Assessment & Plan Assessment & Plan (1) Alcohol use disorder, severe, dependence: Status: Acute Code(s): F10.20 - Alcohol dependence, uncomplicated (2) Bipolar disorder, current episode depressed, severe, without psychotic features: Status: Acute Code(s): F31.4 - Bipolar disorder, current episode depressed, severe, without psychotic features (3) Cognitive impairment: Status: Acute Code(s): R41.89 - Other symptoms and signs involving cognitive functions and awareness Assessment and Plan: Dat is a 66 y.o. Male who carries a dx of bipolar disorder, alcohol use disorder. He has a long history of depression, alcohol abuse. He presented to [facility] ED via section 12a on 06/13/21 after his sister calling EMS due to inability to function, decompensation. He is currently presenting with sx of neurocognitive impairment/ confusion, depressed mood. Had been drinking daily but denies withdrawal sx, no longer on CIWA protocols, receiving folic acid and thiamine therapy. Has hx of IPLOC on M5 and was diagnosed with bipolar disorder, treated with lithium and zyprexa, hx of ECT for severe depression. Hx of non- adherence with OP psych treatment, no current psychotropic medications. Denies current psychotic sx. Plan: 1. Continue same treatment. 2. F/U with for safe discharge. 3. Hold Midodrine as BP has been stable and he is not hypotensive Greater than 50% of the session was spent on counseling and/or coordination of care Reason for contiued inpatient stay Substantial Risk for: inability to function, rapid decompensation and med/psych decompensation
[2021-06-27 18:00] VITALS: BP 127/65; PULSE 78; RESP 17; TEMP 35.9; O2SAT 96
[2021-06-27] MEDS: Lurasidone HCl 20 MG TABLET PO (20:03)
[2021-06-27] MEDS: Acetaminophen 325 MG TABLET 650 MG PO (21:54)
[2021-06-27] MEDS: traZODone HCL 50 MG TABLET PO (22:03)
[2021-06-28] MEDS: Naltrexone HCl 50 MG TABLET 25 MG PO (09:43)
[2021-06-28] MEDS: Thiamine HCL 100 MG TABLET PO (09:43)
[2021-06-28] MEDS: Nicotine 21 MG PATCH.TD24 TRANSDERMA (09:48)
[2021-06-28 10:00] VITALS: BP 120/68; PULSE 80; RESP 16; TEMP 37.2; O2SAT 95
[2021-06-28] MEDS: Acetaminophen 325 MG TABLET 650 MG PO (10:01)
--- NOTE | 2021-06-28 12:12 | HO.PSYCHPN ---
Subjective Subjective Date of Service: 06/28/21 Reason For Visit: Alcohol use disorder, depression, SI Subjective Notes: Conditional Voluntary Interim History: The nursing staff reports no changes in his mental status, he states most of the time in his room. No evidence of incontinence. The licensed master social worker reported that her sister has over the arranged the cleaning of the apartment. On interview, the patient denies new symptoms he states that he is okay but he cannot remember why he is here. Medication Compliance: Yes Side effects from medications: No Attending Groups: Intermittent Review of Systems Acute medical concerns: No Medical Review of Systems: unchanged Mental Status Exam Mental Status Exam Patient Appearance: Disheveled Patient Orientation: Person Level of Consciousness: Awake Patient Behavior: Appropriate Mood Description: Calm Affect Description: Constricted Patient Cognition Impaired: Yes Ability to Follow Directions: Good Speech Pattern: Clear Hallucinations: None Delusions: Not Present Thought Process: Slowed Thinking Thought Content: positive for Circumstantial and positive for Poverty of Content Judgement: Fair Diagnostics Vital Signs (24Hr): Vital Signs - 24 hr 06/27/21 18:00 06/28/21 10:00 Temperature 96.7 F L 98.9 F Pulse Rate 78 80 Respiratory Rate 17 16 Blood Pressure 127/65 120/68 Pulse Oximetry 96 95 Body Mass Index 23.3 Labs Results: 06/18/21 11:46 Imaging Radiology Impressions: ITS Impressions Brain MRI 06/21/21 20:15 IMPRESSION: 1. No acute intracranial abnormalities. 2. Mild underlying microangiopathy and generalized cerebral volume loss. Medications Medications Current Medications Generic Name Dose Route Start Last Admin Trade Name Freq PRN Reason Stop Dose Admin Acetaminophen 650 mg 06/16/21 17:29 06/28/21 10:01 Acetaminophen 325 Mg Tablet PO 650 mg Q6H PRN Administration Headache/Pain Mild Scale (1-3) Albuterol Sulfate 2 puff 06/16/21 19:57 06/21/21 08:17 Albuterol Sulfate 90 Mcg 8 Gm Inhaler INHALE 2 puff RQ4H PRN Administration asthma Hydroxyzine HCl 25 mg 06/16/21 17:29 Hydroxyzine Hcl 25 Mg Tablet PO Q6H PRN Anxiety Lurasidone HCl 20 mg 06/16/21 21:00 06/27/21 20:03 Lurasidone Hcl 20 Mg Tablet PO 20 mg BEDTIME DIANE Administration Magnesium Hydroxide 30 ml 06/16/21 17:29 Milk Of Magnesia 30 Ml Oral.Susp PO DAILY PRN Constipation Melatonin 6 mg 06/16/21 19:55 06/26/21 22:48 Melatonin 3 Mg Tablet PO 6 mg BEDTIME PRN Administration Insomnia Midodrine 5 mg 06/17/21 07:30 06/25/21 16:38 Midodrine Hcl 5 Mg Tablet PO Not Given TIDAC DIANE Multivitamins/Minerals 1 tab 06/17/21 09:00 06/28/21 09:45 Multivitamin With Minerals Tablet PO 1 tab DAILY DIANE Administration Naltrexone HCl 25 mg 06/19/21 14:35 06/28/21 09:43 Naltrexone Hcl 50 Mg Tablet PO 25 mg DAILY DIANE Administration Nicotine 21 mg 06/17/21 09:00 06/28/21 09:48 Nicotine 21 Mg Patch.Td24 TRANSDERMA 21 mg DAILY DIANE Administration Thiamine HCl 100 mg 06/17/21 09:00 06/28/21 09:43 Thiamine Hcl 100 Mg Tablet PO 100 mg DAILY DIANE Administration Trazodone HCl 50 mg 06/16/21 17:29 06/27/21 22:03 Trazodone Hcl 50 Mg Tablet PO 50 mg BEDTIME PRN Administration Insomnia Allergies Allergies Allergy/AdvReac Type Severity Reaction Status Date / Time ibuprofen [IBUPROFEN] Allergy Severe ANAPHYLAXIS Verified 06/11/21 14:23 cat dander [CATS] Allergy Unknown UNKNOWN Verified 06/11/21 14:23 dog dander [DOGS] Allergy Unknown UNKNOWN Verified 06/11/21 14:23 Assessment & Plan Assessment & Plan (1) Alcohol use disorder, severe, dependence: Status: Acute Code(s): F10.20 - Alcohol dependence, uncomplicated (2) Bipolar disorder, current episode depressed, severe, without psychotic features: Status: Acute Code(s): F31.4 - Bipolar disorder, current episode depressed, severe, without psychotic features (3) Cognitive impairment: Status: Acute Code(s): R41.89 - Other symptoms and signs involving cognitive functions and awareness Assessment and Plan: Dat is a 66 y.o. Male who carries a dx of bipolar disorder, alcohol use disorder. He has a long history of depression, alcohol abuse. He presented to [facility] [place] ED via section 12a on 06/13/21 after his sister calling EMS due to inability to function, decompensation. He is currently presenting with sx of neurocognitive impairment/ confusion, depressed mood. Had been drinking daily but denies withdrawal sx, no longer on CIWA protocols, receiving folic acid and thiamine therapy. Has hx of IPLOC on M5 and was diagnosed with bipolar disorder, treated with lithium and zyprexa, hx of ECT for severe depression. Hx of non-adherence with OP psych treatment, no current psychotropic medications. Denies current psychotic sx. Plan: 1. Continue same treatment. 2. F/U with for safe discharge. 3. Hold Midodrine as BP has been stable and he is not hypotensive Greater than 50% of the session was spent on counseling and/or coordination of care Reason for contiued inpatient stay Substantial Risk for: inability to function, rapid decompensation and med/psych decompensation
[2021-06-28 18:00] VITALS: BP 112/72; PULSE 80; RESP 17; TEMP 35.9; O2SAT 96
[2021-06-28] MEDS: Lurasidone HCl 20 MG TABLET PO (20:38)
[2021-06-28] MEDS: Melatonin 3 MG TABLET 6 MG PO (21:03)
[2021-06-29 09:20] VITALS: BP 112/63; PULSE 88; RESP 16; TEMP 36.2; O2SAT 95
[2021-06-29] MEDS: Nicotine 21 MG PATCH.TD24 TRANSDERMA (09:23)
[2021-06-29] MEDS: Thiamine HCL 100 MG TABLET PO (09:24)
[2021-06-29] MEDS: Naltrexone HCl 50 MG TABLET 25 MG PO (09:25)
--- NOTE | 2021-06-29 15:00 | P.PNPSI_ITS ---
Subjective Subjective Date of Service: 06/29/21 Reason For Visit: Alcohol use disorder, depression, SI Subjective Notes: Conditional Voluntary Interim History: The nursing staff reported the patient remains mostly of the time in his room reading. She is very seclusive but he went out for meals and he attended 1 group. He has been continent and he has been superficial. On interview, the patient denies new symptoms his contempt with the current treatment. Mental Status Exam Mental Status Exam Patient Appearance: Well Grooomed (On hospital gowns) Patient Orientation: Person Level of Consciousness: Awake Patient Behavior: Guarded and Cooperative Mood Description: Calm Affect Description: Constricted Patient Cognition Impaired: Yes Ability to Follow Directions: Good Speech Pattern: Clear Hallucinations: None Delusions: Not Present Thought Process: Intact Thought Content: positive for Poverty of Content Judgement: Fair Diagnostics Vital Signs (24Hr): Vital Signs - 24 hr 06/28/21 18:00 06/29/21 09:20 Temperature 96.6 F L 97.2 F Pulse Rate 80 88 Respiratory Rate 17 16 Blood Pressure 112/72 112/63 Pulse Oximetry 96 95 Body Mass Index 23.3 Labs Results: 06/18/21 11:46 Imaging Radiology Impressions: ITS Impressions Brain MRI 06/21/21 20:15 IMPRESSION: 1. No acute intracranial abnormalities. 2. Mild underlying microangiopathy and generalized cerebral volume loss. Medications Medications Current Medications Generic Name Dose Route Start Last Admin Trade Name Freq PRN Reason Stop Dose Admin Acetaminophen 650 mg 06/16/21 17:29 06/28/21 10:01 Acetaminophen 325 Mg Tablet PO 650 mg Q6H PRN Administration Headache/Pain Mild Scale (1-3) Albuterol Sulfate 2 puff 06/16/21 19:57 06/21/21 08:17 Albuterol Sulfate 90 Mcg 8 Gm Inhaler INHALE 2 puff RQ4H PRN Administration asthma Hydroxyzine HCl 25 mg 06/16/21 17:29 Hydroxyzine Hcl 25 Mg Tablet PO Q6H PRN Anxiety Lurasidone HCl 20 mg 06/16/21 21:00 06/28/21 20:38 Lurasidone Hcl 20 Mg Tablet PO 20 mg BEDTIME DIANE Administration Magnesium Hydroxide 30 ml 06/16/21 17:29 Milk Of Magnesia 30 Ml Oral.Susp PO DAILY PRN Constipation Melatonin 6 mg 06/16/21 19:55 06/28/21 21:03 Melatonin 3 Mg Tablet PO 6 mg BEDTIME PRN Administration Insomnia Midodrine 5 mg 06/17/21 07:30 06/25/21 16:38 Midodrine Hcl 5 Mg Tablet PO Not Given TIDAC [facility] Multivitamins/Minerals 1 tab 06/17/21 09:00 06/29/21 09:24 Multivitamin With Minerals Tablet PO 1 tab DAILY DIANE Administration Naltrexone HCl 25 mg 06/19/21 14:35 06/29/21 09:25 Naltrexone Hcl 50 Mg Tablet PO 25 mg DAILY DIANE Administration Nicotine 21 mg 06/17/21 09:00 06/29/21 09:23 Nicotine 21 Mg Patch.Td24 TRANSDERMA 21 mg DAILY DIANE Administration Thiamine HCl 100 mg 06/17/21 09:00 06/29/21 09:24 Thiamine Hcl 100 Mg Tablet PO 100 mg DAILY DIANE Administration Trazodone HCl 50 mg 06/16/21 17:29 06/27/21 22:03 Trazodone Hcl 50 Mg Tablet PO 50 mg BEDTIME PRN Administration Insomnia Allergies Allergies Allergy/AdvReac Type Severity Reaction Status Date / Time ibuprofen [IBUPROFEN] Allergy Severe ANAPHYLAXIS Verified 06/11/21 14:23 cat dander [CATS] Allergy Unknown UNKNOWN Verified 06/11/21 14:23 dog dander [DOGS] Allergy Unknown UNKNOWN Verified 06/11/21 14:23 Assessment & Plan Assessment & Plan (1) Alcohol use disorder, severe, dependence: Status: Acute Code(s): F10.20 - Alcohol dependence, uncomplicated (2) Bipolar disorder, current episode depressed, severe, without psychotic features: Status: Acute Code(s): F31.4 - Bipolar disorder, current episode depressed, severe, without psychotic features (3) Cognitive impairment: Status: Acute Code(s): R41.89 - Other symptoms and signs involving cognitive functions and awareness Assessment and Plan: Dat is a 66 y.o. Male who carries a dx of bipolar disorder, alcohol use disorder. He has a long history of depression, alcohol abuse. He presented [place] [facility] via section 12a on 06/13/21 after his sister calling EMS due to inability to function, decompensation. He is currently presenting with sx of neurocognitive impairment/ confusion, depressed mood. Had been drinking daily but denies withdrawal sx, no longer on CIWA protocols, receiving folic acid and thiamine therapy. Has hx of IPLOC on M5 and was diagnosed with bipolar disorder, treated with lithium and zyprexa, hx of ECT for severe depression. Hx of non- adherence with OP psych treatment, no current psychotropic medications. Denies current psychotic sx. Plan: 1. Continue same treatment. 2. F/U with for safe discharge. 3. Hold Midodrine as BP has been stable and he is not hypotensive Greater than 50% of the session was spent on counseling and/or coordination of care Reason for contiued inpatient stay Substantial Risk for: inability to function, rapid decompensation and med/psych decompensation
[2021-06-29 18:36] VITALS: BP 125/68; PULSE 84; RESP 18; TEMP 36.9; O2SAT 95
[2021-06-29] MEDS: Acetaminophen 325 MG TABLET 650 MG PO (20:51)
[2021-06-29] MEDS: Lurasidone HCl 20 MG TABLET PO (20:52)
[2021-06-29] MEDS: Melatonin 3 MG TABLET 6 MG PO (20:52)
[2021-06-30 08:15] VITALS: BP 124/69; PULSE 88; RESP 17; TEMP 36.5; O2SAT 95
[2021-06-30] MEDS: Nicotine 21 MG PATCH.TD24 TRANSDERMA (09:20)
[2021-06-30] MEDS: Naltrexone HCl 50 MG TABLET 25 MG PO (09:21)
[2021-06-30] MEDS: Thiamine HCL 100 MG TABLET PO (09:21)
[2021-06-30] MEDS: Acetaminophen 325 MG TABLET 650 MG PO (09:53)
[2021-06-30] MEDS: Albuterol Sulfate 90 MCG 8 GM INHALER 2 PUFF INHALE (12:07)
--- NOTE | 2021-06-30 12:58 | P.PNPSI_ITS ---
Subjective Subjective Date of Service: 06/30/21 Reason For Visit: Alcohol use disorder, depression, SI Diagnostics Vital Signs (24Hr): Vital Signs - 24 hr 06/29/21 18:36 06/30/21 08:15 Temperature 98.4 F 97.7 F Pulse Rate 84 88 Respiratory Rate 18 17 Blood Pressure 125/68 124/69 Pulse Oximetry 95 95 Body Mass Index 23.3 Labs Results: 06/18/21 11:46 Imaging Radiology Impressions: ITS Impressions Brain MRI 06/21/21 20:15 IMPRESSION: 1. No acute intracranial abnormalities. 2. Mild underlying microangiopathy and generalized cerebral volume loss. Medications Medications Current Medications Acetaminophen (Acetaminophen 325 Mg Tablet) 650 mg PO Q6H PRN PRN Reason: Headache/Pain Mild Scale (1-3) Last Admin: 06/30/21 09:53 Dose: 650 mg Documented by: Albuterol Sulfate (Albuterol Sulfate 90 Mcg 8 Gm Inhaler) 2 puff INHALE RQ4H PRN PRN Reason: asthma Last Admin: 06/30/21 12:07 Dose: 2 puff Documented by: Hydroxyzine HCl (Hydroxyzine Hcl 25 Mg Tablet) 25 mg PO Q6H PRN PRN Reason: Anxiety Lurasidone HCl (Lurasidone Hcl 20 Mg Tablet) 20 mg PO BEDTIME ON LICENSE OF [facility] Last Admin: 06/29/21 20:52 Dose: 20 mg Documented by: Magnesium Hydroxide (Milk Of Magnesia 30 Ml Oral.Susp) 30 ml PO DAILY PRN PRN Reason: Constipation Melatonin (Melatonin 3 Mg Tablet) 6 mg PO BEDTIME PRN PRN Reason: Insomnia Last Admin: 06/29/21 20:52 Dose: 6 mg Documented by: Midodrine (Midodrine Hcl 5 Mg Tablet) 5 mg PO TIDAC ON LICENSE OF [facility] Last Admin: 06/25/21 16:38 Dose: Not Given Documented by: Multivitamins/Minerals (Multivitamin With Minerals Tablet) 1 tab PO DAILY ON LICENSE OF [facility] Last Admin: 06/30/21 09:21 Dose: 1 tab Documented by: Naltrexone HCl (Naltrexone Hcl 50 Mg Tablet) 25 mg PO DAILY ON LICENSE OF [facility] Last Admin: 06/30/21 09:21 Dose: 25 mg Documented by: Nicotine (Nicotine 21 Mg Patch.Td24) 21 mg TRANSDERMA DAILY ON LICENSE OF [facility] Last Admin: 06/30/21 09:20 Dose: 21 mg Documented by: Thiamine HCl (Thiamine Hcl 100 Mg Tablet) 100 mg PO DAILY DIANE Last Admin: 06/30/21 09:21 Dose: 100 mg Documented by: Trazodone HCl (Trazodone Hcl 50 Mg Tablet) 50 mg PO BEDTIME PRN PRN Reason: Insomnia Last Admin: 06/27/21 22:03 Dose: 50 mg Documented by: Allergies Allergies Allergy/AdvReac Type Severity Reaction Status Date / Time ibuprofen [IBUPROFEN] Allergy Severe ANAPHYLAXIS Verified 06/11/21 14:23 cat dander [CATS] Allergy Unknown UNKNOWN Verified 06/11/21 14:23 dog dander [DOGS] Allergy Unknown UNKNOWN Verified 06/11/21 14:23 Assessment & Plan Assessment & Plan (1) Alcohol use disorder, severe, dependence: Status: Acute Code(s): F10.20 - Alcohol dependence, uncomplicated (2) Bipolar disorder, current episode depressed, severe, without psychotic features: Status: Acute Code(s): F31.4 - Bipolar disorder, current episode depressed, severe, without psychotic features (3) Cognitive impairment: Status: Acute Code(s): R41.89 - Other symptoms and signs involving cognitive functions and awareness Assessment and Plan: Dat is a 66 y.o. Male who carries a dx of bipolar disorder, alcohol use disorder. He has a long history of depression, alcohol abuse. He presented to [facility] [place] ED via section 12a on 06/13/21 after his sister calling EMS due to inability to function, decompensation. He is currently presenting with sx of neurocognitive impairment/ confusion, depressed mood. Had been drinking daily but denies withdrawal sx, no longer on CIWA protocols, receiving folic acid and thiamine therapy. Has hx of IPLOC on M5 and was diagnosed with bipolar disorder, treated with lithium and zyprexa, hx of ECT for severe depression. Hx of non- adherence with OP psych treatment, no current psychotropic medications. Denies current psychotic sx. Plan: 1. Continue same treatment. 2. F/U with for safe discharge. 3. Hold Midodrine as BP has been stable and he is not hypotensive Greater than 50% of the session was spent on counseling and/or coordination of care Reason for contiued inpatient stay Substantial Risk for: inability to function, rapid decompensation and med/psych decompensation
--- NOTE | 2021-06-30 13:38 | HO.PSYCHPN ---
Subjective Subjective Date of Service: 06/30/21 Reason For Visit: Alcohol use disorder, depression, SI Subjective Notes: Conditional Voluntary Interim History: The nursing staff reported the patient has been mostly in his room, isolative but he states that he is feeling good. Apparently, his apartment has not been cleaning get but his sister is evolving that. The patient is involved in the [place] program but he has not used that he had. On interview, the patient states that he is doing fine, no new symptoms. Medication Compliance: Yes Side effects from medications: No Attending Groups: No Review of Systems Acute medical concerns: No Medical Review of Systems: unchanged Mental Status Exam Mental Status Exam Patient Appearance: Well Grooomed Patient Orientation: Person Level of Consciousness: Awake Patient Behavior: Cooperative Mood Description: Calm Affect Description: Constricted Patient Cognition Impaired: Yes Ability to Follow Directions: Good Speech Pattern: Clear Hallucinations: None Delusions: Not Present Thought Process: Linear Thought Content: positive for Poverty of Content Judgement: Fair Diagnostics Vital Signs (24Hr): Vital Signs - 24 hr 06/29/21 18:36 06/30/21 08:15 Temperature 98.4 F 97.7 F Pulse Rate 84 88 Respiratory Rate 18 17 Blood Pressure 125/68 124/69 Pulse Oximetry 95 95 Body Mass Index 23.3 Labs Results: 06/18/21 11:46 Imaging Radiology Impressions: ITS Impressions Brain MRI 06/21/21 20:15 IMPRESSION: 1. No acute intracranial abnormalities. 2. Mild underlying microangiopathy and generalized cerebral volume loss. Medications Medications Current Medications Acetaminophen (Acetaminophen 325 Mg Tablet) 650 mg PO Q6H PRN PRN Reason: Headache/Pain Mild Scale (1-3) Last Admin: 06/30/21 09:53 Dose: 650 mg Documented by: Albuterol Sulfate (Albuterol Sulfate 90 Mcg 8 Gm Inhaler) 2 puff INHALE RQ4H PRN PRN Reason: asthma Last Admin: 06/30/21 12:07 Dose: 2 puff Documented by: Hydroxyzine HCl (Hydroxyzine Hcl 25 Mg Tablet) 25 mg PO Q6H PRN PRN Reason: Anxiety Lurasidone HCl (Lurasidone Hcl 20 Mg Tablet) 20 mg PO BEDTIME DIANE Last Admin: 06/29/21 20:52 Dose: 20 mg Documented by: Magnesium Hydroxide (Milk Of Magnesia 30 Ml Oral.Susp) 30 ml PO DAILY PRN PRN Reason: Constipation Melatonin (Melatonin 3 Mg Tablet) 6 mg PO BEDTIME PRN PRN Reason: Insomnia Last Admin: 06/29/21 20:52 Dose: 6 mg Documented by: Midodrine (Midodrine Hcl 5 Mg Tablet) 5 mg PO TIDAC [facility] Last Admin: 06/25/21 16:38 Dose: Not Given Documented by: Multivitamins/Minerals (Multivitamin With Minerals Tablet) 1 tab PO DAILY [facility] Last Admin: 06/30/21 09:21 Dose: 1 tab Documented by: Naltrexone HCl (Naltrexone Hcl 50 Mg Tablet) 25 mg PO DAILY [facility] Last Admin: 06/30/21 09:21 Dose: 25 mg Documented by: Nicotine (Nicotine 21 Mg Patch.Td24) 21 mg TRANSDERMA DAILY [facility] Last Admin: 06/30/21 09:20 Dose: 21 mg Documented by: Thiamine HCl (Thiamine Hcl 100 Mg Tablet) 100 mg PO DAILY [facility] Last Admin: 06/30/21 09:21 Dose: 100 mg Documented by: Trazodone HCl (Trazodone Hcl 50 Mg Tablet) 50 mg PO BEDTIME PRN PRN Reason: Insomnia Last Admin: 06/27/21 22:03 Dose: 50 mg Documented by: Allergies Allergies Allergy/AdvReac Type Severity Reaction Status Date / Time ibuprofen [IBUPROFEN] Allergy Severe ANAPHYLAXIS Verified 06/11/21 14:23 cat dander [CATS] Allergy Unknown UNKNOWN Verified 06/11/21 14:23 dog dander [DOGS] Allergy Unknown UNKNOWN Verified 06/11/21 14:23 Assessment & Plan Assessment & Plan (1) Alcohol use disorder, severe, dependence: Status: Acute Code(s): F10.20 - Alcohol dependence, uncomplicated (2) Bipolar disorder, current episode depressed, severe, without psychotic features: Status: Acute Code(s): F31.4 - Bipolar disorder, current episode depressed, severe, without psychotic features (3) Cognitive impairment: Status: Acute Code(s): R41.89 - Other symptoms and signs involving cognitive functions and awareness Assessment and Plan: Dat is a 66 y.o. Male who carries a dx of bipolar disorder, alcohol use disorder. He has a long history of depression, alcohol abuse. He presented to [facility] ED via section 12a on 06/13/21 after his sister calling EMS due to inability to function, decompensation. He is currently presenting with sx of neurocognitive impairment/ confusion, depressed mood. Had been drinking daily but denies withdrawal sx, no longer on CIWA protocols, receiving folic acid and thiamine therapy. Has hx of IPLOC on M5 and was diagnosed with bipolar disorder, treated with lithium and zyprexa, hx of ECT for severe depression. Hx of non-adherence with OP psych treatment, no current psychotropic medications. Denies current psychotic sx. Plan: 1. Continue same treatment. 2. F/U with for safe discharge. 3. Hold Midodrine as BP has been stable and he is not hypotensive Greater than 50% of the session was spent on counseling and/or coordination of care Reason for contiued inpatient stay Substantial Risk for: inability to function, rapid decompensation and med/psych decompensation
[2021-06-30] MEDS: Lurasidone HCl 20 MG TABLET PO (20:04)
[2021-06-30] MEDS: Melatonin 3 MG TABLET 6 MG PO (20:07)
[2021-06-30 21:43] VITALS: BP 117/61; PULSE 89; RESP 18; TEMP 36.7; O2SAT 94
[2021-07-01 06:00] VITALS: BP 121/70; PULSE 85; RESP 18; TEMP 36.7; O2SAT 94
[2021-07-01] MEDS: Nicotine 21 MG PATCH.TD24 TRANSDERMA (08:41)
[2021-07-01] MEDS: Thiamine HCL 100 MG TABLET PO (08:41)
[2021-07-01] MEDS: Naltrexone HCl 50 MG TABLET 25 MG PO (08:41)
[2021-07-01 18:00] VITALS: BP 129/70; PULSE 88; RESP 18; TEMP 37; O2SAT 96
[2021-07-01] MEDS: Lurasidone HCl 20 MG TABLET PO (20:18)
[2021-07-01] MEDS: Acetaminophen 325 MG TABLET 650 MG PO (20:34)
[2021-07-01] MEDS: Melatonin 3 MG TABLET 6 MG PO (20:34)
--- NOTE | 2021-07-01 21:06 | P.PNPSI_ITS ---
Subjective Subjective Date of Service: 07/02/21 Reason For Visit: Alcohol use disorder, depression, SI Interim History: H and P reviewed. No new complaints. Significant cognitive impairment Medication Compliance: Yes Review of Systems Acute medical concerns: No Medical Review of Systems: unchanged Mental Status Exam Mental Status Exam Narrative: Appearance: casually groomed, fair hygiene in NAD Behavior:cooperative psychomotor: no agitation or retardation noted Speech:clear, normal rate/rhythm/volume, spontaneous Thought process: Thought content:no overt delusional content, not oriented to situation Mood: okay Affect: congruent SI:denies HI:denies VH/AH:none Delusions:none Insight/judgment:impaired x 2. Memory/cog: alert, oriented to month, year, date, but not situation. Had MOCA on 06/13 score of , most impairment in executive function, recall- I do suspect his actual ability of current functioning is much more impaired and significant than mild cognitive impairment. Patient Appearance: Well Grooomed Patient Orientation: Person Level of Consciousness: Awake Patient Behavior: Cooperative Mood Description: Calm Affect Description: Constricted Patient Cognition Impaired: Yes Ability to Follow Directions: Good Speech Pattern: Clear Memory Description: Immediate Impaired and Working Impaired Diagnostics Vital Signs (24Hr): Vital Signs - 24 hr 06/30/21 21:43 07/01/21 06:00 07/01/21 18:00 Temperature 98.1 F 98.1 F 98.6 F Pulse Rate 89 85 88 Respiratory Rate 18 18 18 Blood Pressure 117/61 121/70 129/70 Pulse Oximetry 94 94 96 Body Mass Index 23.3 Labs Results: 06/18/21 11:46 Imaging Radiology Impressions: ITS Impressions Brain MRI 06/21/21 20:15 IMPRESSION: 1. No acute intracranial abnormalities. 2. Mild underlying microangiopathy and generalized cerebral volume loss. Medications Medications Current Medications Acetaminophen (Acetaminophen 325 Mg Tablet) 650 mg PO Q6H PRN PRN Reason: Headache/Pain Mild Scale (1-3) Last Admin: 07/01/21 20:34 Dose: 650 mg Documented by: Albuterol Sulfate (Albuterol Sulfate 90 Mcg 8 Gm Inhaler) 2 puff INHALE RQ4H PRN PRN Reason: asthma Last Admin: 06/30/21 12:07 Dose: 2 puff Documented by: Hydroxyzine HCl (Hydroxyzine Hcl 25 Mg Tablet) 25 mg PO Q6H PRN PRN Reason: Anxiety Lurasidone HCl (Lurasidone Hcl 20 Mg Tablet) 20 mg PO BEDTIME [facility] Last Admin: 07/01/21 20:18 Dose: 20 mg Documented by: Magnesium Hydroxide (Milk Of Magnesia 30 Ml Oral.Susp) 30 ml PO DAILY PRN PRN Reason: Constipation Melatonin (Melatonin 3 Mg Tablet) 6 mg PO BEDTIME PRN PRN Reason: Insomnia Last Admin: 07/01/21 20:34 Dose: 6 mg Documented by: Midodrine (Midodrine Hcl 5 Mg Tablet) 5 mg PO TIDAC [facility] Last Admin: 06/25/21 16:38 Dose: Not Given Documented by: Multivitamins/Minerals (Multivitamin With Minerals Tablet) 1 tab PO DAILY [facility] Last Admin: 07/01/21 08:41 Dose: 1 tab Documented by: Naltrexone HCl (Naltrexone Hcl 50 Mg Tablet) 25 mg PO DAILY [facility] Last Admin: 07/01/21 08:41 Dose: 25 mg Documented by: Nicotine (Nicotine 21 Mg Patch.Td24) 21 mg TRANSDERMA DAILY [facility] Last Admin: 07/01/21 08:41 Dose: 21 mg Documented by: Thiamine HCl (Thiamine Hcl 100 Mg Tablet) 100 mg PO DAILY [facility] Last Admin: 07/01/21 08:41 Dose: 100 mg Documented by: Trazodone HCl (Trazodone Hcl 50 Mg Tablet) 50 mg PO BEDTIME PRN PRN Reason: Insomnia Last Admin: 06/27/21 22:03 Dose: 50 mg Documented by: Allergies Allergies Allergy/AdvReac Type Severity Reaction Status Date / Time ibuprofen [IBUPROFEN] Allergy Severe ANAPHYLAXIS Verified 06/11/21 14:23 cat dander [CATS] Allergy Unknown UNKNOWN Verified 06/11/21 14:23 dog dander [DOGS] Allergy Unknown UNKNOWN Verified 06/11/21 14:23 Assessment & Plan Assessment & Plan (1) Alcohol use disorder, severe, dependence: Status: Acute Code(s): F10.20 - Alcohol dependence, uncomplicated (2) Bipolar disorder, current episode depressed, severe, without psychotic features: Status: Acute Code(s): F31.4 - Bipolar disorder, current episode depressed, severe, without psychotic features (3) Cognitive impairment: Status: Acute Code(s): R41.89 - Other symptoms and signs involving cognitive functions and awareness Assessment and Plan: Dat is a 66 y.o. Male who carries a dx of bipolar disorder, alcohol use disorder. He has a long history of depression, alcohol abuse. He presented to [facility] via section 12a on 06/13/21 after his sister calling EMS due to inability to function, decompensation. He is currently presenting with sx of oscar rocognitive impairment/ confusion, depressed mood. Had been drinking daily but denies withdrawal sx, no longer on CIWA protocols, receiving folic acid and thiamine therapy. Has hx of IPLOC on M5 and was diagnosed with bipolar disorder, treated with lithium and zyprexa, hx of ECT for severe depression. Hx of non- adherence with OP psych treatment, no current psychotropic medications. Denies current psychotic sx. Plan: 1. Continue same treatment. 2. F/U with SW for safe discharge. 3. Hold Midodrine as BP has been stable and he is not hypotensive Greater than 50% of the session was spent on counseling and/or coordination of care Reason for contiued inpatient stay Substantial Risk for: med/psych decompensation
[2021-07-02 06:00] VITALS: BP 131/66; PULSE 83; RESP 18; TEMP 36.2; O2SAT 94
--- NOTE | 2021-07-02 07:38 | P.PNPSI_ITS ---
Subjective Subjective Date of Service: 07/02/21 Reason For Visit: Alcohol use disorder, depression, SI Interim History: H and P reviewed. No new complaints. Significant cognitive impairment Mental Status Exam Mental Status Exam Narrative: Appearance: casually groomed, fair hygiene in NAD Behavior:cooperative psychomotor: no agitation or retardation noted Speech:clear, normal rate/rhythm/volume, spontaneous Thought process: Thought content:no overt delusional content, not oriented to situation Mood: okay Affect: congruent SI:denies HI:denies VH/AH:none Delusions:none Insight/judgment:impaired x 2. Memory/cog: alert, oriented to month, year, date, but not situation. Had MOCA on 06/13 score of , most impairment in executive function, recall- I do suspect his actual ability of current functioning is much more impaired and significant than mild cognitive impairment. Patient Appearance: Well Grooomed Patient Orientation: Person Level of Consciousness: Awake Patient Behavior: Cooperative Mood Description: Calm Affect Description: Constricted Patient Cognition Impaired: Yes Ability to Follow Directions: Good Speech Pattern: Clear Memory Description: Immediate Impaired and Working Impaired Diagnostics Vital Signs (24Hr): Vital Signs - 24 hr 07/01/21 18:00 Temperature 98.6 F Pulse Rate 88 Respiratory Rate 18 Blood Pressure 129/70 Pulse Oximetry 96 Body Mass Index 23.3 Labs Results: 06/18/21 11:46 Imaging Radiology Impressions: ITS Impressions Brain MRI 06/21/21 20:15 IMPRESSION: 1. No acute intracranial abnormalities. 2. Mild underlying microangiopathy and generalized cerebral volume loss. Medications Medications Current Medications Acetaminophen (Acetaminophen 325 Mg Tablet) 650 mg PO Q6H PRN PRN Reason: Headache/Pain Mild Scale (1-3) Last Admin: 07/01/21 20:34 Dose: 650 mg Documented by: Albuterol Sulfate (Albuterol Sulfate 90 Mcg 8 Gm Inhaler) 2 puff INHALE RQ4H PRN PRN Reason: asthma Last Admin: 06/30/21 12:07 Dose: 2 puff Documented by: Hydroxyzine HCl (Hydroxyzine Hcl 25 Mg Tablet) 25 mg PO Q6H PRN PRN Reason: Anxiety Lurasidone HCl (Lurasidone Hcl 20 Mg Tablet) 20 mg PO BEDTIME DIANE Last Admin: 07/01/21 20:18 Dose: 20 mg Documented by: Magnesium Hydroxide (Milk Of Magnesia 30 Ml Oral.Susp) 30 ml PO DAILY PRN PRN Reason: Constipation Melatonin (Melatonin 3 Mg Tablet) 6 mg PO BEDTIME PRN PRN Reason: Insomnia Last Admin: 07/01/21 20:34 Dose: 6 mg Documented by: Midodrine (Midodrine Hcl 5 Mg Tablet) 5 mg PO TIDAC [facility] Last Admin: 06/25/21 16:38 Dose: Not Given Documented by: Multivitamins/Minerals (Multivitamin With Minerals Tablet) 1 tab PO DAILY [facility] Last Admin: 07/01/21 08:41 Dose: 1 tab Documented by: Naltrexone HCl (Naltrexone Hcl 50 Mg Tablet) 25 mg PO DAILY [facility] Last Admin: 07/01/21 08:41 Dose: 25 mg Documented by: Nicotine (Nicotine 21 Mg Patch.Td24) 21 mg TRANSDERMA DAILY [facility] Last Admin: 07/01/21 08:41 Dose: 21 mg Documented by: Thiamine HCl (Thiamine Hcl 100 Mg Tablet) 100 mg PO DAILY [facility] Last Admin: 07/01/21 08:41 Dose: 100 mg Documented by: Trazodone HCl (Trazodone Hcl 50 Mg Tablet) 50 mg PO BEDTIME PRN PRN Reason: Insomnia Last Admin: 06/27/21 22:03 Dose: 50 mg Documented by: Allergies Allergies Allergy/AdvReac Type Severity Reaction Status Date / Time ibuprofen [IBUPROFEN] Allergy Severe ANAPHYLAXIS Verified 06/11/21 14:23 cat dander [CATS] Allergy Unknown UNKNOWN Verified 06/11/21 14:23 dog dander [DOGS] Allergy Unknown UNKNOWN Verified 06/11/21 14:23 Assessment & Plan Assessment & Plan (1) Alcohol use disorder, severe, dependence: Status: Acute Code(s): F10.20 - Alcohol dependence, uncomplicated (2) Bipolar disorder, current episode depressed, severe, without psychotic features: Status: Acute Code(s): F31.4 - Bipolar disorder, current episode depressed, severe, without psychotic features (3) Cognitive impairment: Status: Acute Code(s): R41.89 - Other symptoms and signs involving cognitive functions and awareness Assessment and Plan: Dat is a 66 y.o. Male who carries a dx of bipolar disorder, alcohol use disorder. He has a long history of depression, alcohol abuse. He presented to [facility] via section 12a on 06/13/21 after his sister calling EMS due to inability to function, decompensation. He is currently presenting with sx of neurocognitive impairment/ confusion, depressed mood. Had been drinking daily but denies withdrawal sx, no longer on CIWA protocols, receiving folic acid and thiamine therapy. Has hx of IPLOC on M5 and was diagnosed with bipolar disorder, treated with lithium and zyprexa, hx of ECT for severe depression. Hx of non- adherence with OP psych treatment, no current psychotropic medications. Denies current psychotic sx. Plan: 1. Continue same treatment. 2. F/U with for safe discharge. 3. Hold Midodrine as BP has been stable and he is not hypotensive Greater than 50% of the session was spent on counseling and/or coordination of care Reason for contiued inpatient stay Substantial Risk for: med/psych decompensation
[2021-07-02] MEDS: Nicotine 21 MG PATCH.TD24 TRANSDERMA (08:11)
[2021-07-02] MEDS: Thiamine HCL 100 MG TABLET PO (08:12)
[2021-07-02] MEDS: Naltrexone HCl 50 MG TABLET 25 MG PO (08:12)
[2021-07-02 18:00] VITALS: BP 132/63; PULSE 88; RESP 18; TEMP 36.6; O2SAT 95
[2021-07-02] MEDS: Lurasidone HCl 20 MG TABLET PO (20:20)
[2021-07-02] MEDS: Melatonin 3 MG TABLET 6 MG PO (20:38)
[2021-07-03 09:42] VITALS: BP 130/70; PULSE 89; RESP 18; TEMP 36.4; O2SAT 98
[2021-07-03] MEDS: Nicotine 21 MG PATCH.TD24 TRANSDERMA (09:45)
[2021-07-03] MEDS: Thiamine HCL 100 MG TABLET PO (09:46)
[2021-07-03] MEDS: Acetaminophen 325 MG TABLET 650 MG PO ×2 (09:46→21:04)
[2021-07-03] MEDS: Naltrexone HCl 50 MG TABLET 25 MG PO (09:46)
--- NOTE | 2021-07-03 13:29 | P.PNPSI_ITS ---
Subjective Subjective Date of Service: 07/03/21 Reason For Visit: Alcohol use disorder, depression, SI Subjective Notes: Conditional Voluntary Interim History: The nursing staff reported that the patient spends most of the time in his room reading. The social economist reported that her sister called and reported that the apartment is going to be clean and has caused several 1000 dollars. He is going to be reported to the care teams recovery unit operator due to his substance abuse. On interview, the patient denies new symptoms he confabulates and and he is very pleasant. Medication Compliance: Yes Side effects from medications: No Attending Groups: Intermittent Review of Systems Acute medical concerns: No Medical Review of Systems: unchanged Mental Status Exam Mental Status Exam Patient Appearance: Well Grooomed Patient Orientation: Person Level of Consciousness: Awake Patient Behavior: Cooperative Mood Description: Calm Affect Description: Constricted Patient Cognition Impaired: Yes Ability to Follow Directions: Good Speech Pattern: Clear Hallucinations: None Delusions: Not Present Thought Process: Slowed Thinking Thought Content: positive for Circumstantial Judgement: Fair Diagnostics Vital Signs (24Hr): Vital Signs - 24 hr 07/02/21 18:00 07/03/21 09:42 Temperature 97.8 F 97.6 F Pulse Rate 88 89 Respiratory Rate 18 18 Blood Pressure 132/63 130/70 Pulse Oximetry 95 98 Body Mass Index 23.3 Labs Results: 06/18/21 11:46 Imaging Radiology Impressions: ITS Impressions Brain MRI 06/21/21 20:15 IMPRESSION: 1. No acute intracranial abnormalities. 2. Mild underlying microangiopathy and generalized cerebral volume loss. Medications Medications Current Medications Acetaminophen (Acetaminophen 325 Mg Tablet) 650 mg PO Q6H PRN PRN Reason: Headache/Pain Mild Scale (1-3) Last Admin: 07/03/21 09:46 Dose: 650 mg Documented by: Albuterol Sulfate (Albuterol Sulfate 90 Mcg 8 Gm Inhaler) 2 puff INHALE RQ4H PRN PRN Reason: asthma Last Admin: 06/30/21 12:07 Dose: 2 puff Documented by: Hydroxyzine HCl (Hydroxyzine Hcl 25 Mg Tablet) 25 mg PO Q6H PRN PRN Reason: Anxiety Lurasidone HCl (Lurasidone Hcl 20 Mg Tablet) 20 mg PO BEDTIME [facility] Last Admin: 07/02/21 20:20 Dose: 20 mg Documented by: Magnesium Hydroxide (Milk Of Magnesia 30 Ml Oral.Susp) 30 ml PO DAILY PRN PRN Reason: Constipation Melatonin (Melatonin 3 Mg Tablet) 6 mg PO BEDTIME PRN PRN Reason: Insomnia Last Admin: 07/02/21 20:38 Dose: 6 mg Documented by: Midodrine (Midodrine Hcl 5 Mg Tablet) 5 mg PO TIDAC [facility] Last Admin: 06/25/21 16:38 Dose: Not Given Documented by: Multivitamins/Minerals (Multivitamin With Minerals Tablet) 1 tab PO DAILY [facility] Last Admin: 07/03/21 09:45 Dose: 1 tab Documented by: Naltrexone HCl (Naltrexone Hcl 50 Mg Tablet) 50 mg PO DAILY [facility] Nicotine (Nicotine 21 Mg Patch.Td24) 21 mg TRANSDERMA DAILY [facility] Last Admin: 07/03/21 09:45 Dose: 21 mg Documented by: Thiamine HCl (Thiamine Hcl 100 Mg Tablet) 100 mg PO DAILY [facility] Last Admin: 07/03/21 09:46 Dose: 100 mg Documented by: Trazodone HCl (Trazodone Hcl 50 Mg Tablet) 50 mg PO BEDTIME PRN PRN Reason: Insomnia Last Admin: 06/27/21 22:03 Dose: 50 mg Documented by: Allergies Allergies Allergy/AdvReac Type Severity Reaction Status Date / Time ibuprofen [IBUPROFEN] Allergy Severe ANAPHYLAXIS Verified 06/11/21 14:23 cat dander [CATS] Allergy Unknown UNKNOWN Verified 06/11/21 14:23 dog dander [DOGS] Allergy Unknown UNKNOWN Verified 06/11/21 14:23 Assessment & Plan Assessment & Plan (1) Alcohol use disorder, severe, dependence: Status: Acute Code(s): F10.20 - Alcohol dependence, uncomplicated (2) Bipolar disorder, current episode depressed, severe, without psychotic fea tures: Status: Acute Code(s): F31.4 - Bipolar disorder, current episode depressed, severe, without psychotic features (3) Cognitive impairment: Status: Acute Code(s): R41.89 - Other symptoms and signs involving cognitive functions and awareness Assessment and Plan: Dat is a 66 y.o. Male who carries a dx of bipolar disorder, alcohol use disorder. He has a long history of depression, alcohol abuse. He presented to [facility] via section 12a on 06/13/21 after his sister calling EMS due to inability to function, decompensation. He is currently presenting with sx of neurocogn itive impairment/ confusion, depressed mood. Had been drinking daily but denies withdrawal sx, no longer on CIWA protocols, receiving folic acid and thiamine therapy. Has hx of IPLOC on M5 and was diagnosed with bipolar disorder, treated with lithium and zyprexa, hx of ECT for severe depression. Hx of non-adherence with OP psych treatment, no current psychotropic medications. Denies current psychotic sx. Plan: 1. Continue same treatment. 2. F/U with for safe discharge. 3. Hold Midodrine as BP has been stable and he is not hypotensive Greater than 50% of the session was spent on counseling and/or coordination of care Reason for contiued inpatient stay Substantial Risk for: inability to function, rapid decompensation and med/psych decompensation
[2021-07-03 19:54] VITALS: BP 125/67; PULSE 85; RESP 16; TEMP 36.6; O2SAT 97
[2021-07-03] MEDS: Lurasidone HCl 20 MG TABLET PO (20:56)
[2021-07-03] MEDS: Albuterol Sulfate 90 MCG 8 GM INHALER 2 PUFF INHALE (21:03)
[2021-07-03] MEDS: Melatonin 3 MG TABLET 6 MG PO (21:03)
[2021-07-04 09:55] VITALS: BP 141/74; PULSE 89; RESP 18; TEMP 36.5; O2SAT 99
[2021-07-04] MEDS: Nicotine 21 MG PATCH.TD24 TRANSDERMA (09:58)
[2021-07-04] MEDS: Acetaminophen 325 MG TABLET 650 MG PO ×2 (09:59→20:15)
[2021-07-04] MEDS: Naltrexone HCl 50 MG TABLET PO (09:59)
[2021-07-04] MEDS: Thiamine HCL 100 MG TABLET PO (09:59)
[2021-07-04] MEDS: Albuterol Sulfate 90 MCG 8 GM INHALER 2 PUFF INHALE (10:02)
--- NOTE | 2021-07-04 14:44 | HO.PSYCHPN ---
Subjective Subjective Date of Service: 07/04/21 Reason For Visit: Alcohol use disorder, depression, SI Subjective Notes: Conditional Voluntary Interim History: The nursing staff report the patient has been in his room most of the time, reading. On interview, the patient denies new symptoms, he states that he is doing fine but he is pleasantly confused and he confabulates with this prescriber. According to the social group worker, his sister reported that cleaning of his apartment that cleaning has already restarted. Mental Status Exam Mental Status Exam Patient Appearance: Well Grooomed Patient Orientation: Person Level of Consciousness: Awake Patient Behavior: Cooperative Mood Description: Constricted Affect Description: Constricted and Depressed Patient Cognition Impaired: Yes Ability to Follow Directions: Good Speech Pattern: Appropriate Hallucinations: None Delusions: Not Present Thought Process: Slowed Thinking Thought Content: positive for Poverty of Content Judgement: Fair Diagnostics Vital Signs (24Hr): Vital Signs - 24 hr 07/03/21 19:54 07/04/21 09:55 Temperature 97.8 F 97.7 F Pulse Rate 85 89 Respiratory Rate 16 18 Blood Pressure 125/67 141/74 H Pulse Oximetry 97 99 Body Mass Index 23.3 Labs Results: 06/18/21 11:46 Imaging Radiology Impressions: ITS Impressions Brain MRI 06/21/21 20:15 IMPRESSION: 1. No acute intracranial abnormalities. 2. Mild underlying microangiopathy and generalized cerebral volume loss. Medications Medications Current Medications Acetaminophen (Acetaminophen 325 Mg Tablet) 650 mg PO Q6H PRN PRN Reason: Headache/Pain Mild Scale (1-3) Last Admin: 07/04/21 09:59 Dose: 650 mg Documented by: Albuterol Sulfate (Albuterol Sulfate 90 Mcg 8 Gm Inhaler) 2 puff INHALE RQ4H PRN PRN Reason: asthma Last Admin: 07/04/21 10:02 Dose: 2 puff Documented by: Hydroxyzine HCl (Hydroxyzine Hcl 25 Mg Tablet) 25 mg PO Q6H PRN PRN Reason: Anxiety Lurasidone HCl (Lurasidone Hcl 20 Mg Tablet) 20 mg PO BEDTIME [facility] Last Admin: 07/03/21 20:56 Dose: 20 mg Documented by: Magnesium Hydroxide (Milk Of Magnesia 30 Ml Oral.Susp) 30 ml PO DAILY PRN PRN Reason: Constipation Melatonin (Melatonin 3 Mg Tablet) 6 mg PO BEDTIME PRN PRN Reason: Insomnia Last Admin: 07/03/21 21:03 Dose: 6 mg Documented by: Midodrine (Midodrine Hcl 5 Mg Tablet) 5 mg PO TIDAC [facility] Last Admin: 06/25/21 16:38 Dose: Not Given Documented by: Multivitamins/Minerals (Multivitamin With Minerals Tablet) 1 tab PO DAILY [facility] Last Admin: 07/04/21 09:59 Dose: 1 tab Documented by: Naltrexone HCl (Naltrexone Hcl 50 Mg Tablet) 50 mg PO DAILY [facility] Last Admin: 07/04/21 09:59 Dose: 50 mg Documented by: Nicotine (Nicotine 21 Mg Patch.Td24) 21 mg TRANSDERMA DAILY [facility] Last Admin: 07/04/21 09:58 Dose: 21 mg Documented by: Thiamine HCl (Thiamine Hcl 100 Mg Tablet) 100 mg PO DAILY [facility] Last Admin: 07/04/21 09:59 Dose: 100 mg Documented by: Trazodone HCl (Trazodone Hcl 50 Mg Tablet) 50 mg PO BEDTIME PRN PRN Reason: Insomnia Last Admin: 06/27/21 22:03 Dose: 50 mg Documented by: Allergies Allergies Allergy/AdvReac Type Severity Reaction Status Date / Time ibuprofen [IBUPROFEN] Allergy Severe ANAPHYLAXIS Verified 06/11/21 14:23 cat dander [CATS] Allergy Unknown UNKNOWN Verified 06/11/21 14:23 dog dander [DOGS] Allergy Unknown UNKNOWN Verified 06/11/21 14:23 Assessment & Plan Assessment & Plan (1) Alcohol use disorder, severe, dependence: Status: Acute Code(s): F10.20 - Alcohol dependence, uncomplicated (2) Bipolar disorder, current episode depressed, severe, without psychotic features: Status: Acute Code(s): F31.4 - Bipolar disorder, current episode depressed, severe, without psychotic features (3) Cognitive impairment: Status: Acute Code(s): R41.89 - Other symptoms and signs involving cognitive functions and awareness Assessment and Plan: Dat is a 66 y.o. Male who carries a dx of bipolar disorder, alcohol use disorder. He has a long history of depression, alcohol abuse. He presented to [facility] via section 12a on 06/13/21 after his sister calling EMS due to inability to function, decompensation. He is currently presenting with sx of neurocognitive impairment/ confusion, depressed mood. Had been drinking daily but denies withdrawal sx, no longer on CIWA protocols, receiving folic acid and thiamine therapy. Has hx of IPLOC on M5 and was diagnosed with bipolar disorder, treated with lithium and zyprexa, hx of ECT for severe depression. Hx of non-adherence with OP psych treatment, no current psychotropic medications. Denies current psychotic sx. Plan: 1. Continue same treatment. 2. F/U with for safe discharge. 3. Hold Midodrine as BP has been stable and he is not hypotensive Greater than 50% of the session was spent on counseling and/or coordination of care Reason for contiued inpatient stay Substantial Risk for: inability to function, rapid decompensation and med/psych decompensation
[2021-07-04] MEDS: Lurasidone HCl 20 MG TABLET PO (20:15)
[2021-07-04] MEDS: Melatonin 3 MG TABLET 6 MG PO (20:15)
[2021-07-04 20:18] VITALS: BP 118/66; PULSE 84; RESP 16; TEMP 36.6; O2SAT 97
[2021-07-05] MEDS: Nicotine 21 MG PATCH.TD24 TRANSDERMA (08:08)
[2021-07-05] MEDS: Naltrexone HCl 50 MG TABLET PO (08:08)
[2021-07-05] MEDS: Thiamine HCL 100 MG TABLET PO (08:08)
[2021-07-05 08:30] VITALS: BP 137/74; PULSE 81; RESP 16; TEMP 36.6; O2SAT 96
--- NOTE | 2021-07-05 11:37 | P.PNPSI_ITS ---
Subjective Subjective Date of Service: 07/05/21 Reason For Visit: Alcohol use disorder, depression, SI Interim History: Pt has been visible in the unit and social with select peers. Pt pleasant on approach. Pt reports he is doing well, hoping to go home soon. He reports he does crave alcohl and may continue drinking if possible. He denies SI/IH. He denies VH/AH. No behavioral concerns. Medication Compliance: Yes Side effects from medications: No Attending Groups: Intermittent Mental Status Exam Mental Status Exam Narrative: Appearance: casually groomed, fair hygiene in NAD Behavior:cooperative psychomotor: no agitation or retardation noted Speech:clear, normal rate/rhythm/volume, spontaneous Thought process: poverty of thought noted Thought content:no overt delusional content, not oriented to situation, wanting to go home soon Mood: okay Affect: congruent SI:denies HI:denies VH/AH:none Delusions:none Insight/judgment:impaired x 2. Memory/cog: alert, oriented to month, year, date, but not situation. Had MOCA on 06/13 score of 21/30, most impairment in executive function, recall- I do suspect his actual ability of current functioning is much more impaired and significant than mild cognitive impairment. Diagnostics Vital Signs (24Hr): Vital Signs - 24 hr 07/05/21 08:30 Temperature 97.8 F Pulse Rate 81 Respiratory Rate 16 Blood Pressure 137/74 Pulse Oximetry 96 Body Mass Index 23.3 Labs Results: 06/18/21 11:46 Imaging Radiology Impressions: ITS Impressions Brain MRI 06/21/21 20:15 IMPRESSION: 1. No acute intracranial abnormalities. 2. Mild underlying microangiopathy and generalized cerebral volume loss. Medications Medications Current Medications Acetaminophen (Acetaminophen 325 Mg Tablet) 650 mg PO Q6H PRN PRN Reason: Headache/Pain Mild Scale (1-3) Last Admin: 07/05/21 20:13 Dose: 650 mg Documented by: Albuterol Sulfate (Albuterol Sulfate 90 Mcg 8 Gm Inhaler) 2 puff INHALE RQ4H PRN PRN Reason: asthma Last Admin: 07/04/21 10:02 Dose: 2 puff Documented by: Hydroxyzine HCl (Hydroxyzine Hcl 25 Mg Tablet) 25 mg PO Q6H PRN PRN Reason: Anxiety Lurasidone HCl (Lurasidone Hcl 20 Mg Tablet) 20 mg PO BEDTIME [facility] Last Admin: 07/05/21 20:12 Dose: 20 mg Documented by: Magnesium Hydroxide (Milk Of Magnesia 30 Ml Oral.Susp) 30 ml PO DAILY PRN PRN Reason: Constipation Melatonin (Melatonin 3 Mg Tablet) 6 mg PO BEDTIME PRN PRN Reason: Insomnia Last Admin: 07/05/21 20:12 Dose: 6 mg Documented by: Midodrine (Midodrine Hcl 5 Mg Tablet) 5 mg PO TIDAC [facility] Last Admin: 06/25/21 16:38 Dose: Not Given Documented by: Multivitamins/Minerals (Multivitamin With Minerals Tablet) 1 tab PO DAILY [facility] Last Admin: 07/05/21 08:08 Dose: 1 tab Documented by: Naltrexone HCl (Naltrexone Hcl 50 Mg Tablet) 50 mg PO DAILY [facility] Last Admin: 07/05/21 08:08 Dose: 50 mg Documented by: Nicotine (Nicotine 21 Mg Patch.Td24) 21 mg TRANSDERMA DAILY [facility] Last Admin: 07/05/21 08:08 Dose: 21 mg Documented by: Thiamine HCl (Thiamine Hcl 100 Mg Tablet) 100 mg PO DAILY [facility] Last Admin: 07/05/21 08:08 Dose: 100 mg Documented by: Trazodone HCl (Trazodone Hcl 50 Mg Tablet) 50 mg PO BEDTIME PRN PRN Reason: Insomnia Last Admin: 06/27/21 22:03 Dose: 50 mg Documented by: Allergies Allergies Allergy/AdvReac Type Severity Reaction Status Date / Time ibuprofen [IBUPROFEN] Allergy Severe ANAPHYLAXIS Verified 06/11/21 14:23 cat dander [CATS] Allergy Unknown UNKNOWN Verified 06/11/21 14:23 dog dander [DOGS] Allergy Unknown UNKNOWN Verified 06/11/21 14:23 Assessment & Plan Assessment & Plan (1) Alcohol use disorder, severe, dependence: Status: Acute Code(s): F10.20 - Alcohol dependence, uncomplicated (2) Bipolar disorder, current episode depressed, severe, without psychotic features: Status: Acute Code(s): F31.4 - Bipolar disorder, current episode depressed, severe, without psychotic features (3) Cognitive impairment: Status: Acute Code(s): R41.89 - Other symptoms and signs involving cognitive functions and awareness Assessment and Plan: Dat is a 66 y.o. Male who carries a dx of bipolar disorder, alcohol use disorder. He has a long history of depression, alcohol abuse. He presented to [facility] via section 12a on 06/13/21 after his sister calling EMS due to inability to function, decompensation. He is currently presenting with sx of neurocognitive impairment/ confusion, depressed mood. Had been drinking daily but denies withdrawal sx, no longer on CIWA protocols, receiving folic acid and thiamine therapy. Has hx of IPLOC on M5 and was diagnosed with bipolar disorder, treated with lithium and zyprexa, hx of ECT for severe depression. Hx of non- adherence with OP psych treatment, no current psychotropic medications. Denies current psychotic sx. Plan: 1. Continue same treatment. 2. F/U with for safe discharge. 3. continue current medications Greater than 50% of the session was spent on counseling and/or coordination of care Reason for contiued inpatient stay Substantial Risk for: inability to function
[2021-07-05 18:00] VITALS: BP 137/63; PULSE 96; RESP 18; TEMP 37.1; O2SAT 97
[2021-07-05] MEDS: Melatonin 3 MG TABLET 6 MG PO (20:12)
[2021-07-05] MEDS: Lurasidone HCl 20 MG TABLET PO (20:12)
[2021-07-05] MEDS: Acetaminophen 325 MG TABLET 650 MG PO (20:13)
[2021-07-06 07:00] VITALS: BMI 26.2
[2021-07-06 08:00] VITALS: BP 150/70; PULSE 84; RESP 18; TEMP 36.6; O2SAT 98
[2021-07-06] MEDS: Thiamine HCL 100 MG TABLET PO (08:23)
[2021-07-06] MEDS: Nicotine 21 MG PATCH.TD24 TRANSDERMA (08:23)
[2021-07-06] MEDS: Naltrexone HCl 50 MG TABLET PO (08:24)
--- NOTE | 2021-07-06 11:28 | MHC.RECOVSUP ---
Recovery Support note: Patient is a 66 year old male in 184-1 of the [facility] with alcohol use disorder. This expert medical writer met with patient to discuss his alcohol use and recovery supports. Patient was laying in bed reading when this expert medical writer entered the room. Patient reports drinking up to six 24 oz beers daily in addition to several fireball shots. Patient reports he typically drinks with friends however reports he also drinks by himself to a lesser extent. Patient reports he first received treatment for his alcohol use while in college. Patient reports he attended a two week program in [place] and hated it. Patient reports attending AA meetings and court mandated outpatient treatment following a DUI. Patient reports he did not find these helpful either. Patient reports his siblings are supportive of him and that he can reach out to them if needed. Patient declined outpatient recovery supports at this time. Patient reports he plans to continue drinking after discharge. Discussed the negative effect alcohol consumption has on physical and mental health and patient acknowledged. Patient was receptive to the idea of eliminating fireball from his pattern of consumption. Encouraged patient to start with that and then reduce his consumption of beer. Patient requested this expert medical writer contact him after discharge to see if how he is doing and to see if he needs any resources at that time. Patient also requested the contact information for this expert medical writer which was provided. Discussed case with patient's provider.
--- NOTE | 2021-07-06 14:40 | P.PNPSI_ITS ---
Subjective Subjective Date of Service: 07/07/21 Reason For Visit: Alcohol use disorder, depression, SI Interim History: Pt has been visible in the unit and social with select peers. Pt pleasant on approach with bright affect. Pt reports he is doing well, hoping to go home soon. He reports he does crave alcohol and may continue drinking if possible. He reports that knowing detrimental effect of alcohol does not necessarily stop him from doing it and he is just being open about it. Pt encouraged to continue naltrexon as he may drink less even if he does relapse quickly after discharge. He denies SI/IH. He denies VH/AH. No behavioral concerns. Medication Compliance: Yes Mental Status Exam Mental Status Exam Narrative: Appearance: casually groomed, fair hygiene in NAD Behavior:cooperative psychomotor: no agitation or retardation noted Speech:clear, normal rate/rhythm/volume, spontaneous Thought process: poverty of thought noted Thought content:no overt delusional content, not oriented to situation, wanting to go home soon Mood: okay Affect: congruent SI:denies HI:denies VH/AH:none Delusions:none Insight/judgment:impaired x 2. Memory/cog: alert, oriented to month, year, date, but not situation. Had MOCA on 06/13 score of 21/30, most impairment in executive function, recall- I do suspect his actual ability of current functioning is much more impaired and significant than mild cognitive impairment. Diagnostics Vital Signs (24Hr): Vital Signs - 24 hr 07/06/21 21:11 07/07/21 06:00 Temperature 98.3 F 98.0 F Pulse Rate 97 100 Respiratory Rate 18 Blood Pressure 130/93 H 135/71 Pulse Oximetry 96 95 Body Mass Index 26.2 Labs Results: 06/18/21 11:46 Imaging Radiology Impressions: ITS Impressions Brain MRI 06/21/21 20:15 IMPRESSION: 1. No acute intracranial abnormalities. 2. Mild underlying microangiopathy and generalized cerebral volume loss. Medications Medications Current Medications Acetaminophen (Acetaminophen 325 Mg Tablet) 650 mg PO Q6H PRN PRN Reason: Headache/Pain Mild Scale (1-3) Last Admin: 07/06/21 21:48 Dose: 650 mg Documented by: Albuterol Sulfate (Albuterol Sulfate 90 Mcg 8 Gm Inhaler) 2 puff INHALE RQ4H PRN PRN Reason: asthma Last Admin: 07/04/21 10:02 Dose: 2 puff Documented by: Hydroxyzine HCl (Hydroxyzine Hcl 25 Mg Tablet) 25 mg PO Q6H PRN PRN Reason: Anxiety Lurasidone HCl (Lurasidone Hcl 20 Mg Tablet) 20 mg PO BEDTIME [facility] Last Admin: 07/06/21 21:00 Dose: 20 mg Documented by: Magnesium Hydroxide (Milk Of Magnesia 30 Ml Oral.Susp) 30 ml PO DAILY PRN PRN Reason: Constipation Melatonin (Melatonin 3 Mg Tablet) 6 mg PO BEDTIME PRN PRN Reason: Insomnia Last Admin: 07/06/21 21:50 Dose: 6 mg Documented by: Midodrine (Midodrine Hcl 5 Mg Tablet) 5 mg PO TIDAC [facility] Last Admin: 06/25/21 16:38 Dose: Not Given Documented by: Multivitamins/Minerals (Multivitamin With Minerals Tablet) 1 tab PO DAILY [facility] Last Admin: 07/07/21 07:39 Dose: 1 tab Documented by: Naltrexone HCl (Naltrexone Hcl 50 Mg Tablet) 50 mg PO DAILY [facility] Last Admin: 07/07/21 07:39 Dose: 50 mg Documented by: Nicotine (Nicotine 21 Mg Patch.Td24) 21 mg TRANSDERMA DAILY [facility] Last Admin: 07/07/21 07:38 Dose: 21 mg Documented by: Thiamine HCl (Thiamine Hcl 100 Mg Tablet) 100 mg PO DAILY [facility] Last Admin: 07/07/21 07:39 Dose: 100 mg Documented by: Trazodone HCl (Trazodone Hcl 50 Mg Tablet) 50 mg PO BEDTIME PRN PRN Reason: Insomnia Last Admin: 06/27/21 22:03 Dose: 50 mg Documented by: Allergies Allergies Allergy/AdvReac Type Severity Reaction Status Date / Time ibuprofen [IBUPROFEN] Allergy Severe ANAPHYLAXIS Verified 06/11/21 14:23 cat dander [CATS] Allergy Unknown UNKNOWN Verified 06/11/21 14:23 dog dander [DOGS] Allergy Unknown UNKNOWN Verified 06/11/21 14:23 Assessment & Plan Assessment & Plan (1) Alcohol use disorder, severe, dependence: Status: Acute Code(s): F10.20 - Alcohol dependence, uncomplicated (2) Bipolar disorder, current episode depressed, severe, without psychotic features: Status: Acute Code(s): F31.4 - Bipolar disorder, current episode depressed, severe, without psychotic features (3) Cognitive impairment: Status: Acute Code(s): R41.89 - Other symptoms and signs involving cognitive functions and awareness Assessment and Plan: Dat is a 66 y.o. Male who carries a dx of bipolar disorder, alcohol use disorder. He has a long history of depression, alcohol abuse. He presented to [facility] via section 12a on 06/13/21 after his sister calling EMS due to inability to function, decompensation. He is currently presenting with sx of neurocognitive impairment/ confusion, depressed mood. Had been drinking daily but denies withdrawal sx, no longer on CIWA protocols, receiving folic acid and thiamine therapy. Has hx of IPLOC on M5 and was diagnosed with bipolar disorder, treated with lithium and zyprexa, hx of ECT for severe depression. Hx of non- adherence with OP psych treatment, no current psychotropic medications. Denies current psychotic sx. Plan: 1. Continue same treatment. 2. F/U with for safe discharge. 3. continue current medications Greater than 50% of the session was spent on counseling and/or coordination of care Reason for contiued inpatient stay Substantial Risk for: inability to function
[2021-07-06] MEDS: Lurasidone HCl 20 MG TABLET PO (21:00)
[2021-07-06 21:11] VITALS: BP 130/93; PULSE 97; RESP 18; TEMP 36.8; O2SAT 96
[2021-07-06] MEDS: Acetaminophen 325 MG TABLET 650 MG PO (21:48)
[2021-07-06] MEDS: Melatonin 3 MG TABLET 6 MG PO (21:50)
[2021-07-07 06:00] VITALS: BP 135/71; PULSE 100; TEMP 36.7; O2SAT 95
[2021-07-07] MEDS: Nicotine 21 MG PATCH.TD24 TRANSDERMA (07:38)
[2021-07-07] MEDS: Naltrexone HCl 50 MG TABLET PO (07:39)
[2021-07-07] MEDS: Thiamine HCL 100 MG TABLET PO (07:39)
--- NOTE | 2021-07-07 10:42 | P.PNPSI_ITS ---
Subjective Subjective Date of Service: 07/07/21 Reason For Visit: Alcohol use disorder, depression, SI Subjective Notes: Conditional Voluntary Interim History: Pt has been visible in the unit and social with select peers. Pt pleasant on approach with bright affect. Pt greets this ad copy writer, and does seem to remember me from yesterday's meeting. Pt continues to report he is doing well, hoping to go home soon. He reports he does crave alcohol and may continue drinking if possible. He reports that knowing detrimental effect of alcohol does not necessarily stop him from doing it and he is just being open about it. Pt encouraged to continue naltrexon as he may drink less even if he does relapse quickly after discharge. He states he is looking forward to return to his apartment once is cleaned up. He denies SI/IH. He denies VH/AH. No behavioral concerns. Mental Status Exam Mental Status Exam Narrative: Appearance: casually groomed, fair hygiene in NAD Behavior:cooperative psychomotor: no agitation or retardation noted Speech:clear, normal rate/rhythm/volume, spontaneous Thought process: poverty of thought noted Thought content:no overt delusional content, not oriented to situation, wanting to go home soon Mood: okay Affect: congruent SI:denies HI:denies VH/AH:none Delusions:none Insight/judgment:impaired x 2. Memory/cog: alert, oriented to month, year, date, but not situation. Had MOCA on 06/13 score of 21/30, most impairment in executive function, recall- I do suspect his actual ability of current functioning is much more impaired and significant than mild cognitive impairment. Diagnostics Vital Signs (24Hr): Vital Signs - 24 hr 07/06/21 21:11 07/07/21 06:00 Temperature 98.3 F 98.0 F Pulse Rate 97 100 Respiratory Rate 18 Blood Pressure 130/93 H 135/71 Pulse Oximetry 96 95 Body Mass Index 26.2 Labs Results: 06/18/21 11:46 Imaging Radiology Impressions: ITS Impressions Brain MRI 06/21/21 20:15 IMPRESSION: 1. No acute intracranial abnormalities. 2. Mild underlying microangiopathy and generalized cerebral volume loss. Medications Medications Current Medications Acetaminophen (Acetaminophen 325 Mg Tablet) 650 mg PO Q6H PRN PRN Reason: Headache/Pain Mild Scale (1-3) Last Admin: 07/06/21 21:48 Dose: 650 mg Documented by: Albuterol Sulfate (Albuterol Sulfate 90 Mcg 8 Gm Inhaler) 2 puff INHALE RQ4H P RN PRN Reason: asthma Last Admin: 07/04/21 10:02 Dose: 2 puff Documented by: Hydroxyzine HCl (Hydroxyzine Hcl 25 Mg Tablet) 25 mg PO Q6H PRN PRN Reason: Anxiety Lurasidone HCl (Lurasidone Hcl 20 Mg Tablet) 20 mg PO BEDTIME [facility] Last Admin: 07/06/21 21:00 Dose: 20 mg Documented by: Magnesium Hydroxide (Milk Of Magnesia 30 Ml Oral.Susp) 30 ml PO DAILY PRN PRN Reason: Constipation Melatonin (Melatonin 3 Mg Tablet) 6 mg PO BEDTIME PRN PRN Reason: Insomnia Last Admin: 07/06/21 21:50 Dose: 6 mg Documented by: Midodrine (Midodrine Hcl 5 Mg Tablet) 5 mg PO TIDAC [facility] Last Admin: 06/25/21 16:38 Dose: Not Given Documented by: Multivitamins/Minerals (Multivitamin With Minerals Tablet) 1 tab PO DAILY [facility] Last Admin: 07/07/21 07:39 Dose: 1 tab Documented by: Naltrexone HCl (Naltrexone Hcl 50 Mg Tablet) 50 mg PO DAILY [facility] Last Admin: 07/07/21 07:39 Dose: 50 mg Documented by: Nicotine (Nicotine 21 Mg Patch.Td24) 21 mg TRANSDERMA DAILY [facility] Last Admin: 07/07/21 07:38 Dose: 21 mg Documented by: Thiamine HCl (Thiamine Hcl 100 Mg Tablet) 100 mg PO DAILY [facility] Last Admin: 07/07/21 07:39 Dose: 100 mg Documented by: Trazodone HCl (Trazodone Hcl 50 Mg Tablet) 50 mg PO BEDTIME PRN PRN Reason: Insomnia Last Admin: 06/27/21 22:03 Dose: 50 mg Documented by: Allergies Allergies Allergy/AdvReac Type Severity Reaction Status Date / Time ibuprofen [IBUPROFEN] Allergy Severe ANAPHYLAXIS Verified 06/11/21 14:23 cat dander [CATS] Allergy Unknown UNKNOWN Verified 06/11/21 14:23 dog dander [DOGS] Allergy Unknown UNKNOWN Verified 06/11/21 14:23 Assessment & Plan Assessment & Plan (1) Alcohol use disorder, severe, dependence: Status: Acute Code(s): F10.20 - Alcohol dependence, uncomplicated (2) Bipolar disorder, current episode depressed, severe, without psychotic features: Status: Acute Code(s): F31.4 - Bipolar disorder, current episode depressed, severe, without psychotic features (3) Cognitive impairment: Status: Acute Code(s): R41.89 - Other symptoms and signs involving cognitive functions and awareness Assessment and Plan: Dat is a 66 y.o. Male who carries a dx of bipolar disorder, alcohol use disorder. He has a long history of depression, alcohol abuse. He presented to [facility] via section 12a on 06/13/21 after his sister calling EMS due to inability to function, decompensation. He is currently presenting with sx of neurocognitive impairment/ confusion, depressed mood. Had been drinking daily but denies withdrawal sx, no longer on CIWA protocols, receiving folic acid and thiamine therapy. Has hx of IPLOC on M5 and was diagnosed with bipolar disorder, treated with lithium and zyprexa, hx of ECT for severe depression. Hx of non- adherence with OP psych treatment, no current psychotropic medications. Denies current psychotic sx. Plan: 1. Continue same treatment. 2. F/U with for safe discharge. 3. continue current medications Greater than 50% of the session was spent on counseling and/or coordination of care Reason for contiued inpatient stay Substantial Risk for: inability to function
[2021-07-07] MEDS: Lurasidone HCl 20 MG TABLET PO (22:07)
[2021-07-07] MEDS: Melatonin 3 MG TABLET 6 MG PO (22:07)
[2021-07-08] MEDS: traZODone HCL 50 MG TABLET PO (00:15)
[2021-07-08] MEDS: Albuterol Sulfate 90 MCG 8 GM INHALER 2 PUFF INHALE ×2 (00:44→21:52)
[2021-07-08 06:00] VITALS: BP 111/75; PULSE 106; RESP 16; O2SAT 94
[2021-07-08] MEDS: Thiamine HCL 100 MG TABLET PO (08:32)
[2021-07-08] MEDS: Nicotine 21 MG PATCH.TD24 TRANSDERMA (08:32)
[2021-07-08] MEDS: Naltrexone HCl 50 MG TABLET PO (08:32)
[2021-07-08] MEDS: Multivitamin TABLET 1 TAB PO (09:14)
[2021-07-08] MEDS: Acetaminophen 325 MG TABLET 650 MG PO ×2 (09:17→20:32)
--- NOTE | 2021-07-08 10:18 | HO.PSYCHPN ---
Subjective Subjective Date of Service: 07/08/21 Reason For Visit: Alcohol use disorder, depression, SI Subjective Notes: Conditional Voluntary Interim History: Patient was seen in rounds today. He has been stable and is doing better. Available records and treatment plan reviewed. He is eating and sleeping adequately. He is hoping for discharge early next week. He is also hoping to go home to be able to drink because he enjoys it! No tics. No changes were made Review of Systems Constitutional: Reports as per HPI and Reports lethargy Eyes: Reports as per HPI Reports as per HPI and Reports Normal hearing present Cardiovascular: Reports as per HPI Respiratory: Reports as per HPI and Reports no additional respiratory complaints Gastrointestinal: Reports as per HPI and Reports no additional gastrointestinal complaints Genitourinary: Reports no additional male genitourinary complaints and Reports as per HPI Musculoskeletal: Reports as per HPI and Reports back pain Skin/Breast: Reports as per HPI Reports Normal hearing present and Reports confusion Psychiatric: Reports anxiety, Reports change in appetite, Reports confusion, Reports depression and Reports difficulty concentrating Endocrine: Reports no additional endocrine complaints and Reports as per HPI Hematologic/Lymphatic: Reports as per HPI Allergic/Immunologic: Reports as per HPI Mental Status Exam Mental Status Exam Narrative: Appearance: casually groomed, fair hygiene in NAD Behavior:cooperative psychomotor: no agitation or retardation noted Speech:clear, normal rate/rhythm/volume, spontaneous Thought process: poverty of thought noted Thought content:no overt delusional content, not oriented to situation, wanting to go home soon Mood: okay Affect: congruent SI:denies HI:denies VH/AH:none Delusions:none Insight/judgment:impaired x 2. Memory/cog: alert, oriented to month, year, date, but not situation. Had MOCA on 06/13 score of , most impairment in executive function, recall- I do suspect his actual ability of current functioning is much more impaired and significant than mild cognitive impairment. Diagnostics Vital Signs (24Hr): Body Mass Index 26.2 Labs Results: 06/18/21 11:46 Imaging Radiology Impressions: ITS Impressions Brain MRI 06/21/21 20:15 IMPRESSION: 1. No acute intracranial abnormalities. 2. Mild underlying microangiopathy and generalized cerebral volume loss. Medications Medications Current Medications Acetaminophen (Acetaminophen 325 Mg Tablet) 650 mg PO Q6H PRN PRN Reason: Headache/Pain Mild Scale (1-3) Last Admin: 07/08/21 09:17 Dose: 650 mg Documented by: Albuterol Sulfate (Albuterol Sulfate 90 Mcg 8 Gm Inhaler) 2 puff INHALE RQ4H PRN PRN Reason: asthma Last Admin: 07/08/21 00:44 Dose: 2 puff Documented by: Hydroxyzine HCl (Hydroxyzine Hcl 25 Mg Tablet) 25 mg PO Q6H PRN PRN Reason: Anxiety Lurasidone HCl (Lurasidone Hcl 20 Mg Tablet) 20 mg PO BEDTIME [facility] Last Admin: 07/07/21 22:07 Dose: 20 mg Documented by: Magnesium Hydroxide (Milk Of Magnesia 30 Ml Oral.Susp) 30 ml PO DAILY PRN PRN Reason: Constipation Melatonin (Melatonin 3 Mg Tablet) 6 mg PO BEDTIME PRN PRN Reason: Insomnia Last Admin: 07/07/21 22:07 Dose: 6 mg Documented by: Midodrine (Midodrine Hcl 5 Mg Tablet) 5 mg PO TIDAC [facility] Last Admin: 06/25/21 16:38 Dose: Not Given Documented by: Multivitamins/Vitamin C (Multivitamin Tablet) 1 tab PO DAILY [facility] Last Admin: 07/08/21 09:14 Dose: 1 tab Documented by: Naltrexone HCl (Naltrexone Hcl 50 Mg Tablet) 50 mg PO DAILY [facility] Last Admin: 07/08/21 08:32 Dose: 50 mg Documented by: Nicotine (Nicotine 21 Mg Patch.Td24) 21 mg TRANSDERMA DAILY [facility] Last Admin: 07/08/21 08:32 Dose: 21 mg Documented by: Thiamine HCl (Thiamine Hcl 100 Mg Tablet) 100 mg PO DAILY [facility] Last Admin: 07/08/21 08:32 Dose: 100 mg Documented by: Trazodone HCl (Trazodone Hcl 50 Mg Tablet) 50 mg PO BEDTIME PRN PRN Reason: Insomnia Last Admin: 07/08/21 00:15 Dose: 50 mg Documented by: Allergies Allergies Allergy/AdvReac Type Severity Reaction Status Date / Time ibuprofen [IBUPROFEN] Allergy Severe ANAPHYLAXIS Verified 06/11/21 14:23 cat dander [CATS] Allergy Unknown UNKNOWN Verified 06/11/21 14:23 dog dander [DOGS] Allergy Unknown UNKNOWN Verified 06/11/21 14:23 Assessment & Plan Assessment & Plan (1) Alcohol use disorder, severe, dependence: Status: Acute Code(s): F10.20 - Alcohol dependence, uncomplicated (2) Bipolar disorder, current episode depressed, severe, without psychotic features: Status: Acute Code(s): F31.4 - Bipolar disorder, current episode depressed, severe, without psychotic features (3) Cognitive impairment: Status: Acute Code(s): R41.89 - Other symptoms and signs involving cognitive functions and awareness Assessment and Plan: Dat is a 66 y.o. Male who carries a dx of bipolar disorder, alcohol use disorder. He has a long history of depression, alcohol abuse. He presented to [facility] via section 12a on 06/13/21 after his sister calling EMS due to inability to function, decompensation. He is currently presenting with sx of neurocognitive impairment/ confusion, depressed mood. Had been drinking daily but denies withdrawal sx, no longer on CIWA protocols, receiving folic acid and thiamine therapy. Has hx of IPLOC on M5 and was diagnosed with bipolar disorder, treated with lithium and zyprexa, hx of ECT for severe depression. Hx of non-adherence with OP psych treatment, no current psychotropic medications. Denies current psychotic sx. Plan: Continue current regimen and plans with no changes Greater than 50% of the session was spent on counseling and/or coordination of care Reason for contiued inpatient stay Substantial Risk for: other
[2021-07-08 18:00] VITALS: BP 145/77; PULSE 94; RESP 20; TEMP 37.1; O2SAT 96
[2021-07-08] MEDS: Melatonin 3 MG TABLET 6 MG PO (20:29)
[2021-07-08] MEDS: Lurasidone HCl 20 MG TABLET PO (20:29)
[2021-07-09 06:00] VITALS: BP 124/64; PULSE 92; RESP 16; TEMP 36.3; O2SAT 96
[2021-07-09] MEDS: Naltrexone HCl 50 MG TABLET PO (08:18)
[2021-07-09] MEDS: Multivitamin TABLET 1 TAB PO (08:18)
[2021-07-09] MEDS: Thiamine HCL 100 MG TABLET PO (08:18)
[2021-07-09] MEDS: Nicotine 21 MG PATCH.TD24 TRANSDERMA (08:18)
--- NOTE | 2021-07-09 09:28 | HO.PSYCHPN ---
Subjective Subjective Date of Service: 07/09/21 Reason For Visit: Alcohol use disorder, depression, SI Subjective Notes: Conditional Voluntary Interim History: Patient was seen and discussed in rounds. Records were reviewed. He is doing the same with no changes. Eating and sleeping adequately. Confusion present. Episodes of urinating where he is not supposed to use such as the sink. Continues to be looking forward to going home and going back to drinking!. No complaints or side effects. No changes were made today Medication Compliance: Yes Side effects from medications: No Review of Systems Constitutional: Reports as per HPI and Reports lethargy Eyes: Reports as per HPI Reports as per HPI and Reports Normal hearing present Cardiovascular: Reports as per HPI Respiratory: Reports as per HPI and Reports no additional respiratory complaints Gastrointestinal: Reports as per HPI and Reports no additional gastrointestinal complaints Genitourinary: Reports no additional male genitourinary complaints and Reports as per HPI Musculoskeletal: Reports as per HPI and Reports back pain Skin/Breast: Reports as per HPI Reports Normal hearing present and Reports confusion Psychiatric: Reports anxiety, Reports change in appetite, Reports confusion, Reports depression and Reports difficulty concentrating Endocrine: Reports no additional endocrine complaints and Reports as per HPI Hematologic/Lymphatic: Reports as per HPI Allergic/Immunologic: Reports as per HPI Diagnostics Vital Signs (24Hr): Vital Signs - 24 hr 07/08/21 18:00 07/09/21 06:00 Temperature 98.7 F 97.4 F Pulse Rate 94 92 Respiratory Rate 20 16 Blood Pressure 145/77 H 124/64 Pulse Oximetry 96 96 Body Mass Index 26.2 Labs Results: 06/18/21 11:46 Imaging Radiology Impressions: ITS Impressions Brain MRI 06/21/21 20:15 IMPRESSION: 1. No acute intracranial abnormalities. 2. Mild underlying microangiopathy and generalized cerebral volume loss. Medications Medications Current Medications Acetaminophen (Acetaminophen 325 Mg Tablet) 650 mg PO Q6H PRN PRN Reason: Headache/Pain Mild Scale (1-3) Last Admin: 07/08/21 20:32 Dose: 650 mg Documented by: Albuterol Sulfate (Albuterol Sulfate 90 Mcg 8 Gm Inhaler) 2 puff INHALE RQ4H PRN PRN Reason: asthma Last Admin: 07/08/21 21:52 Dose: 2 puff Documented by: Hydroxyzine HCl (Hydroxyzine Hcl 25 Mg Tablet) 25 mg PO Q6H PRN PRN Reason: Anxiety Lurasidone HCl (Lurasidone Hcl 20 Mg Tablet) 20 mg PO BEDTIME [facility] Last Admin: 07/08/21 20:29 Dose: 20 mg Documented by: Magnesium Hydroxide (Milk Of Magnesia 30 Ml Oral.Susp) 30 ml PO DAILY PRN PRN Reason: Constipation Melatonin (Melatonin 3 Mg Tablet) 6 mg PO BEDTIME PRN PRN Reason: Insomnia Last Admin: 07/08/21 20:29 Dose: 6 mg Documented by: Midodrine (Midodrine Hcl 5 Mg Tablet) 5 mg PO TIDAC [facility] Last Admin: 06/25/21 16:38 Dose: Not Given Documented by: Multivitamins/Vitamin C (Multivitamin Tablet) 1 tab PO DAILY [facility] Last Admin: 07/09/21 08:18 Dose: 1 tab Documented by: Naltrexone HCl (Naltrexone Hcl 50 Mg Tablet) 50 mg PO DAILY [facility] Last Admin: 07/09/21 08:18 Dose: 50 mg Documented by: Nicotine (Nicotine 21 Mg Patch.Td24) 21 mg TRANSDERMA DAILY [facility] Last Admin: 07/09/21 08:18 Dose: 21 mg Documented by: Thiamine HCl (Thiamine Hcl 100 Mg Tablet) 100 mg PO DAILY [facility] Last Admin: 07/09/21 08:18 Dose: 100 mg Documented by: Trazodone HCl (Trazodone Hcl 50 Mg Tablet) 50 mg PO BEDTIME PRN PRN Reason: Insomnia Last Admin: 07/08/21 00:15 Dose: 50 mg Documented by: Allergies Allergies Allergy/AdvReac Type Severity Reaction Status Date / Time ibuprofen [IBUPROFEN] Allergy Severe ANAPHYLAXIS Verified 06/11/21 14:23 cat dander [CATS] Allergy Unknown UNKNOWN Verified 06/11/21 14:23 dog dander [DOGS] Allergy Unknown UNKNOWN Verified 06/11/21 14:23 Assessment & Plan Assessment & Plan (1) Alcohol use disorder, severe, dependence: Status: Acute Code(s): F10.20 - Alcohol dependence, uncomplicated (2) Bipolar disorder, current episode depressed, severe, without psychotic features: Status: Acute Code(s): F31.4 - Bipolar disorder, current episode depressed, severe, without psychotic features (3) Cognitive impairment: Status: Acute Code(s): R41.89 - Other symptoms and signs involving cognitive functions and awareness Assessment and Plan: Dat is a 66 y.o. Male who carries a dx of bipolar disorder, alcohol use disorder. He has a long history of depression, alcohol abuse. He presented to [facility] via section 12a on 06/13/21 after his sister calling EMS due to inability to function, decompensation. He is currently presenting with sx of neurocognitive impairment/ confusion, depressed mood. Had been drinking daily but denies withdrawal sx, no longer on CIWA protocols, receiving folic acid and thiamine therapy. Has hx of IPLOC on M5 and was diagnosed with bipolar disorder, treated with lithium and zyprexa, hx of ECT for severe depression. Hx of non-adherence with OP psych treatment, no current psychotropic medications. Denies current psychotic sx. Plan: Continue current regimen and plans with no changes Reason for contiued inpatient stay Substantial Risk for: other
--- NOTE | 2021-07-09 13:57 | PC.NURSE ---
Patient is noticably restless and agitated. Talking about going home stating, looking forward to drinking and having a cigarette. He is cooperative and compliant with meds and care. Demanding of staff continuously requesting snacks/coffee/beverages from the kitchen. Insisted on taking shower today just as lunch was being served. Not participating in groups but sits to the side and comments on what is going on. Appearance is neat and well groomed. Reports safe on unit.
[2021-07-09 18:49] VITALS: BP 103/67; PULSE 108; RESP 18; TEMP 36.4; O2SAT 96
[2021-07-09] MEDS: Melatonin 3 MG TABLET 6 MG PO (21:00)
[2021-07-09] MEDS: Lurasidone HCl 20 MG TABLET PO (21:00)
[2021-07-09] MEDS: Acetaminophen 325 MG TABLET 650 MG PO (21:02)
[2021-07-10] MEDS: hydrOXYzine HCL 25 MG TABLET PO (03:17)
[2021-07-10] MEDS: traZODone HCL 50 MG TABLET PO (03:17)
[2021-07-10 08:08] VITALS: BP 129/67; PULSE 56; RESP 15; TEMP 36.5; O2SAT 95
[2021-07-10] MEDS: Nicotine 21 MG PATCH.TD24 TRANSDERMA (08:26)
[2021-07-10] MEDS: Naltrexone HCl 50 MG TABLET PO (08:28)
[2021-07-10] MEDS: Multivitamin TABLET 1 TAB PO (08:28)
[2021-07-10] MEDS: Thiamine HCL 100 MG TABLET PO (08:28)
[2021-07-10] MEDS: Albuterol Sulfate 90 MCG 8 GM INHALER 2 PUFF INHALE (09:43)
--- NOTE | 2021-07-10 15:51 | HO.PSYCHPN ---
Subjective Subjective Date of Service: 07/10/21 Reason For Visit: Alcohol use disorder, depression, SI Subjective Notes: Conditional Voluntary Interim History: The nursing staff reported the patient has been eating well, continent and able to do his own ADLs. The social and human services assistant reported that his apartment is being fixed and most likely he will be able to have a place to live from Saturday. On interview, the patient denies new symptoms he does not have any intent to stop drinking when discharged. No new symptoms. Review of Systems Acute medical concerns: No Medical Review of Systems: unchanged Mental Status Exam Mental Status Exam Patient Appearance: Well Grooomed Patient Orientation: Person Level of Consciousness: Awake Patient Behavior: Cooperative Mood Description: Constricted Affect Description: Constricted Patient Cognition Impaired: Yes Ability to Follow Directions: Good Speech Pattern: Clear Hallucinations: None Delusions: Not Present Thought Process: Linear Thought Content: positive for Circumstantial Judgement: Fair Diagnostics Vital Signs (24Hr): Vital Signs - 24 hr 07/09/21 18:49 07/10/21 08:08 Temperature 97.6 F 97.7 F Pulse Rate 108 H 56 Respiratory Rate 18 15 Blood Pressure 103/67 129/67 Pulse Oximetry 96 95 Body Mass Index 26.2 Labs Results: 06/18/21 11:46 Imaging Radiology Impressions: ITS Impressions Brain MRI 06/21/21 20:15 IMPRESSION: 1. No acute intracranial abnormalities. 2. Mild underlying microangiopathy and generalized cerebral volume loss. Medications Medications Current Medications Acetaminophen (Acetaminophen 325 Mg Tablet) 650 mg PO Q6H PRN PRN Reason: Headache/Pain Mild Scale (1-3) Last Admin: 07/09/21 21:02 Dose: 650 mg Documented by: Albuterol Sulfate (Albuterol Sulfate 90 Mcg 8 Gm Inhaler) 2 puff INHALE RQ4H PRN PRN Reason: asthma Last Admin: 07/10/21 09:43 Dose: 2 puff Documented by: Hydroxyzine HCl (Hydroxyzine Hcl 25 Mg Tablet) 25 mg PO Q6H PRN PRN Reason: Anxiety Last Admin: 07/10/21 03:17 Dose: 25 mg Documented by: Lurasidone HCl (Lurasidone Hcl 20 Mg Tablet) 20 mg PO BEDTIME [facility] Last Admin: 07/09/21 21:00 Dose: 20 mg Documented by: Magnesium Hydroxide (Milk Of Magnesia 30 Ml Oral.Susp) 30 ml PO DAILY PRN PRN Reason: Constipation Melatonin (Melatonin 3 Mg Tablet) 6 mg PO BEDTIME PRN PRN Reason: Insomnia Last Admin: 07/09/21 21:00 Dose: 6 mg Documented by: Midodrine (Midodrine Hcl 5 Mg Tablet) 5 mg PO TIDAC [facility] Last Admin: 06/25/21 16:38 Dose: Not Given Documented by: Multivitamins/Vitamin C (Multivitamin Tablet) 1 tab PO DAILY [facility] Last Admin: 07/10/21 08:28 Dose: 1 tab Documented by: Naltrexone HCl (Naltrexone Hcl 50 Mg Tablet) 50 mg PO DAILY [facility] Last Admin: 07/10/21 08:28 Dose: 50 mg Documented by: Nicotine (Nicotine 21 Mg Patch.Td24) 21 mg TRANSDERMA DAILY [facility] Last Admin: 07/10/21 08:26 Dose: 21 mg Documented by: Thiamine HCl (Thiamine Hcl 100 Mg Tablet) 100 mg PO DAILY [facility] Last Admin: 07/10/21 08:28 Dose: 100 mg Documented by: Trazodone HCl (Trazodone Hcl 50 Mg Tablet) 50 mg PO BEDTIME PRN PRN Reason: Insomnia Last Admin: 07/10/21 03:17 Dose: 50 mg Documented by: Allergies Allergies Allergy/AdvReac Type Severity Reaction Status Date / Time ibuprofen [IBUPROFEN] Allergy Severe ANAPHYLAXIS Verified 06/11/21 14:23 cat dander [CATS] Allergy Unknown UNKNOWN Verified 06/11/21 14:23 dog dander [DOGS] Allergy Unknown UNKNOWN Verified 06/11/21 14:23 Assessment & Plan Assessment & Plan (1) Alcohol use disorder, severe, dependence: Status: Acute Code(s): F10.20 - Alcohol dependence, uncomplicated (2) Bipolar disorder, current episode depressed, severe, without psychotic features: Status: Acute Code(s): F31.4 - Bipolar disorder, current episode depressed, severe, without psychotic features (3) Cognitive impairment: Status: Acute Code(s): R41.89 - Other symptoms and signs involving cognitive functions and awareness Assessment and Plan: Dat is a 66 y.o. Male who carries a dx of bipolar disorder, alcohol use disorder. He has a long history of depression, alcohol abuse. He presented [place] [facility] via section 12a on 06/13/21 after his sister calling EMS due to inability to function, decompensation. He is currently presenting with sx of neurocognitive impairment/ confusion, depressed mood. Had been drinking daily but denies withdrawal sx, no longer on CIWA protocols, receiving folic acid and thiamine therapy. Has hx of IPLOC on M5 and was diagnosed with bipolar disorder, treated with lithium and zyprexa, hx of ECT for severe depression. Hx of non-adherence with OP psych treatment, no current psychotropic medications. Denies current psychotic sx. Plan: Continue current regimen and plans with no changes Greater than 50% of the session was spent on counseling and/or coordination of care Reason for contiued inpatient stay Substantial Risk for: inability to function, rapid decompensation and med/psych decompensation
[2021-07-10 18:00] VITALS: BP 134/78; PULSE 104; RESP 18; TEMP 36.7; O2SAT 98
[2021-07-10] MEDS: Acetaminophen 325 MG TABLET 650 MG PO (19:47)
[2021-07-10] MEDS: Melatonin 3 MG TABLET 6 MG PO (19:47)
[2021-07-10] MEDS: Lurasidone HCl 20 MG TABLET PO (19:47)
[2021-07-11] MEDS: Acetaminophen 325 MG TABLET 650 MG PO ×2 (03:17→20:30)
[2021-07-11 06:00] VITALS: BP 130/65; PULSE 83; TEMP 36.5; O2SAT 96
[2021-07-11] MEDS: Thiamine HCL 100 MG TABLET PO (08:10)
[2021-07-11] MEDS: Multivitamin TABLET 1 TAB PO (08:10)
[2021-07-11] MEDS: Naltrexone HCl 50 MG TABLET PO (08:10)
[2021-07-11] MEDS: Nicotine 21 MG PATCH.TD24 TRANSDERMA (08:11)
--- NOTE | 2021-07-11 14:57 | HO.PSYCHPN ---
Subjective Subjective Date of Service: 07/11/21 Reason For Visit: Alcohol use disorder, depression, SI Subjective Notes: Conditional Voluntary Interim History: The nursing staff has reported the patient has been at his baseline,he is sporadically snarky and irritable. On interview, the patient denies new symptoms, he is stable at baseline. Apparently, his apartment will be available on Saturday. Review of Systems Acute medical concerns: No Medical Review of Systems: unchanged Mental Status Exam Mental Status Exam Patient Appearance: Well Grooomed Patient Orientation: Person Level of Consciousness: Awake Patient Behavior: Appropriate Mood Description: Constricted Affect Description: Calm Patient Cognition Impaired: Yes Ability to Follow Directions: Good Speech Pattern: Clear Hallucinations: None Thought Process: Goal Oriented Thought Content: positive for Intact Judgement: Fair Diagnostics Vital Signs (24Hr): Vital Signs - 24 hr 07/10/21 18:00 07/11/21 06:00 Temperature 98.1 F 97.7 F Pulse Rate 104 H 83 Respiratory Rate 18 Blood Pressure 134/78 130/65 Pulse Oximetry 98 96 Body Mass Index 26.2 Labs Results: 06/18/21 11:46 Imaging Radiology Impressions: ITS Impressions Brain MRI 06/21/21 20:15 IMPRESSION: 1. No acute intracranial abnormalities. 2. Mild underlying microangiopathy and generalized cerebral volume loss. Medications Medications Current Medications Acetaminophen (Acetaminophen 325 Mg Tablet) 650 mg PO Q6H PRN PRN Reason: Headache/Pain Mild Scale (1-3) Last Admin: 07/11/21 03:17 Dose: 650 mg Documented by: Albuterol Sulfate (Albuterol Sulfate 90 Mcg 8 Gm Inhaler) 2 puff INHALE RQ4H PRN PRN Reason: asthma Last Admin: 07/10/21 09:43 Dose: 2 puff Documented by: Hydroxyzine HCl (Hydroxyzine Hcl 25 Mg Tablet) 25 mg PO Q6H PRN PRN Reason: Anxiety Last Admin: 07/10/21 03:17 Dose: 25 mg Documented by: Lurasidone HCl (Lurasidone Hcl 20 Mg Tablet) 20 mg PO BEDTIME [facility] Last Admin: 07/10/21 19:47 Dose: 20 mg Documented by: Magnesium Hydroxide (Milk Of Magnesia 30 Ml Oral.Susp) 30 ml PO DAILY PRN PRN Reason: Constipation Melatonin (Melatonin 3 Mg Tablet) 6 mg PO BEDTIME PRN PRN Reason: Insomnia Last Admin: 07/10/21 19:47 Dose: 6 mg Documented by: Midodrine (Midodrine Hcl 5 Mg Tablet) 5 mg PO TIDAC [facility] Last Admin: 06/25/21 16:38 Dose: Not Given Documented by: Multivitamins/Vitamin C (Multivitamin Tablet) 1 tab PO DAILY [facility] Last Admin: 07/11/21 08:10 Dose: 1 tab Documented by: Naltrexone HCl (Naltrexone Hcl 50 Mg Tablet) 50 mg PO DAILY [facility] Last Admin: 07/11/21 08:10 Dose: 50 mg Documented by: Nicotine (Nicotine 21 Mg Patch.Td24) 21 mg TRANSDERMA DAILY [facility] Last Admin: 07/11/21 08:11 Dose: 21 mg Documented by: Thiamine HCl (Thiamine Hcl 100 Mg Tablet) 100 mg PO DAILY [facility] Last Admin: 07/11/21 08:10 Dose: 100 mg Documented by: Trazodone HCl (Trazodone Hcl 50 Mg Tablet) 50 mg PO BEDTIME PRN PRN Reason: Insomnia Last Admin: 07/10/21 03:17 Dose: 50 mg Documented by: Allergies Allergies Allergy/AdvReac Type Severity Reaction Status Date / Time ibuprofen [IBUPROFEN] Allergy Severe ANAPHYLAXIS Verified 06/11/21 14:23 cat dander [CATS] Allergy Unknown UNKNOWN Verified 06/11/21 14:23 dog dander [DOGS] Allergy Unknown UNKNOWN Verified 06/11/21 14:23 Assessment & Plan Assessment & Plan (1) Alcohol use disorder, severe, dependence: Status: Acute Code(s): F10.20 - Alcohol dependence, uncomplicated (2) Bipolar disorder, current episode depressed, severe, without psychotic features: Status: Acute Code(s): F31.4 - Bipolar disorder, current episode depressed, severe, without psychotic features (3) Cognitive impairment: Status: Acute Code(s): R41.89 - Other symptoms and signs involving cognitive functions and awareness Assessment and Plan: Dat is a 66 y.o. Male who carries a dx of bipolar disorder, alcohol use disorder. He has a long history of depression, alcohol abuse. He presented to [facility] via section 12a on 06/13/21 after his sister calling EMS due to inability to function, decompensation. He is currently presenting with sx of neurocognitive impairment/ confusion, depressed mood. Had been drinking daily but denies withdrawal sx, no longer on CIWA protocols, receiving folic acid and thiamine therapy. Has hx of IPLOC on M5 and was diagnosed with bipolar disorder, treated with lithium and zyprexa, hx of ECT for severe depression. Hx of non-adherence with OP psych treatment, no current psychotropic medications. Denies current psychotic sx. Plan: Continue current regimen and plans with no changes Greater than 50% of the session was spent on counseling and/or coordination of care Reason for contiued inpatient stay Substantial Risk for: stable for discharge
[2021-07-11] MEDS: Lurasidone HCl 20 MG TABLET PO (20:30)
[2021-07-11 20:36] VITALS: BP 137/67; PULSE 90; RESP 17; TEMP 36.8; O2SAT 98
[2021-07-12] MEDS: traZODone HCL 50 MG TABLET PO (00:14)
[2021-07-12] MEDS: Albuterol Sulfate 90 MCG 8 GM INHALER 2 PUFF INHALE (05:34)
[2021-07-12 07:50] VITALS: BP 139/68; PULSE 95; RESP 16; TEMP 36.1; O2SAT 95
[2021-07-12] MEDS: Nicotine 21 MG PATCH.TD24 TRANSDERMA (08:07)
[2021-07-12] MEDS: Thiamine HCL 100 MG TABLET PO (08:09)
[2021-07-12] MEDS: Multivitamin TABLET 1 TAB PO (08:09)
[2021-07-12] MEDS: Naltrexone HCl 50 MG TABLET PO (08:09)
--- NOTE | 2021-07-12 10:37 | P.PNPSI_ITS ---
Subjective Subjective Date of Service: 07/12/21 Reason For Visit: Alcohol use disorder, depression, SI Subjective Notes: Conditional Voluntary Interim History: The nursing staff reported that the patient has been at baseline, he has verbalized that he does not have any intent of quit drinking. On interview the patient is very aware that his apartment will be available next Saturday, he denies new symptoms. Review of Systems Acute medical concerns: No Medical Review of Systems: unchanged Mental Status Exam Mental Status Exam Patient Appearance: Well Grooomed Patient Orientation: Person Level of Consciousness: Awake and Alert Patient Behavior: Cooperative Mood Description: Calm Affect Description: Calm Patient Cognition Impaired: Yes Ability to Follow Directions: Good Speech Pattern: Appropriate Hallucinations: None Delusions: Not Present Thought Process: Goal Oriented Thought Content: positive for Circumstantial Judgement: Fair Diagnostics Vital Signs (24Hr): Vital Signs - 24 hr 07/11/21 20:36 07/12/21 07:50 Temperature 98.3 F 97.0 F Pulse Rate 90 95 Respiratory Rate 17 16 Blood Pressure 137/67 139/68 Pulse Oximetry 98 95 Body Mass Index 26.2 Labs Results: 06/18/21 11:46 Imaging Radiology Impressions: ITS Impressions Brain MRI 06/21/21 20:15 IMPRESSION: 1. No acute intracranial abnormalities. 2. Mild underlying microangiopathy and generalized cerebral volume loss. Medications Medications Current Medications Acetaminophen (Acetaminophen 325 Mg Tablet) 650 mg PO Q6H PRN PRN Reason: Headache/Pain Mild Scale (1-3) Last Admin: 07/11/21 20:30 Dose: 650 mg Documented by: Albuterol Sulfate (Albuterol Sulfate 90 Mcg 8 Gm Inhaler) 2 puff INHALE RQ4H PRN PRN Reason: asthma Last Admin: 07/12/21 05:34 Dose: 2 puff Documented by: Hydroxyzine HCl (Hydroxyzine Hcl 25 Mg Tablet) 25 mg PO Q6H PRN PRN Reason: Anxiety Last Admin: 07/10/21 03:17 Dose: 25 mg Documented by: Lurasidone HCl (Lurasidone Hcl 20 Mg Tablet) 20 mg PO BEDTIME DIANE Last Admin: 07/11/21 20:30 Dose: 20 mg Documented by: Magnesium Hydroxide (Milk Of Magnesia 30 Ml Oral.Susp) 30 ml PO DAILY PRN PRN Reason: Constipation Melatonin (Melatonin 3 Mg Tablet) 6 mg PO BEDTIME PRN PRN Reason: Insomnia Last Admin: 07/10/21 19:47 Dose: 6 mg Documented by: Midodrine (Midodrine Hcl 5 Mg Tablet) 5 mg PO TIDAC [facility] Last Admin: 06/25/21 16:38 Dose: Not Given Documented by: Multivitamins/Vitamin C (Multivitamin Tablet) 1 tab PO DAILY [facility] Last Admin: 07/12/21 08:09 Dose: 1 tab Documented by: Naltrexone HCl (Naltrexone Hcl 50 Mg Tablet) 50 mg PO DAILY [facility] Last Admin: 07/12/21 08:09 Dose: 50 mg Documented by: Nicotine (Nicotine 21 Mg Patch.Td24) 21 mg TRANSDERMA DAILY [facility] Last Admin: 07/12/21 08:07 Dose: 21 mg Documented by: Thiamine HCl (Thiamine Hcl 100 Mg Tablet) 100 mg PO DAILY [facility] Last Admin: 07/12/21 08:09 Dose: 100 mg Documented by: Trazodone HCl (Trazodone Hcl 50 Mg Tablet) 50 mg PO BEDTIME PRN PRN Reason: Insomnia Last Admin: 07/12/21 00:14 Dose: 50 mg Documented by: Allergies Allergies Allergy/AdvReac Type Severity Reaction Status Date / Time ibuprofen [IBUPROFEN] Allergy Severe ANAPHYLAXIS Verified 06/11/21 14:23 cat dander [CATS] Allergy Unknown UNKNOWN Verified 06/11/21 14:23 dog dander [DOGS] Allergy Unknown UNKNOWN Verified 06/11/21 14:23 Assessment & Plan Assessment & Plan (1) Alcohol use disorder, severe, dependence: Status: Acute Code(s): F10.20 - Alcohol dependence, uncomplicated (2) Bipolar disorder, current episode depressed, severe, without psychotic features: Status: Acute Code(s): F31.4 - Bipolar disorder, current episode depressed, severe, without psychotic features (3) Cognitive impairment: Status: Acute Code(s): R41.89 - Other symptoms and signs involving cognitive functions and awareness Assessment and Plan: Dat is a 66 y.o. Male who carries a dx of bipolar disorder, alcohol use disorder. He has a long history of depression, alcohol abuse. He presented to [facility] ED via section 12a on 06/13/21 after his sister calling EMS due to inability to function, decompensation. He is currently presenting with sx of neurocognitive impairment/ confusion, depressed mood. Had been drinking daily but denies withdrawal sx, no longer on CIWA protocols, receiving folic acid and thiamine therapy. Has hx of IPLOC on M5 and was diagnosed with bipolar disorder, treated with lithium and zyprexa, hx of ECT for severe depression. Hx of non-adherence with OP psych treatment, no current psychotropic medications. Denies current psychotic sx. Plan: Continue current regimen and plans with no changes Greater than 50% of the session was spent on counseling and/or coordination of care Reason for contiued inpatient stay Substantial Risk for: stable for discharge and rapid decompensation
--- NOTE | 2021-07-12 15:44 | PC.NURSE ---
Patient is visible and pleasant in the milieu for most of the shift. Patient reported today swelling in his feet. Upon Examination +1 edema was noted in his left foot. MD was notified and ordered TEDs. Patient was educated on the need to elevate legs when resting.
[2021-07-12 18:00] VITALS: BP 168/75; PULSE 98; RESP 18; TEMP 36.3; O2SAT 97
[2021-07-12] MEDS: Acetaminophen 325 MG TABLET 650 MG PO (20:54)
[2021-07-12] MEDS: Lurasidone HCl 20 MG TABLET PO (20:55)
[2021-07-12] MEDS: Melatonin 3 MG TABLET 6 MG PO (20:55)
[2021-07-13 06:00] VITALS: BP 123/63; PULSE 120; RESP 16; TEMP 36.8; O2SAT 98
[2021-07-13 07:00] VITALS: BMI 26.1
[2021-07-13] MEDS: Multivitamin TABLET 1 TAB PO (08:43)
[2021-07-13] MEDS: Naltrexone HCl 50 MG TABLET PO (08:43)
[2021-07-13] MEDS: Thiamine HCL 100 MG TABLET PO (08:43)
[2021-07-13] MEDS: Nicotine 21 MG PATCH.TD24 TRANSDERMA (08:46)
[2021-07-13] MEDS: Acetaminophen 325 MG TABLET 650 MG PO ×2 (08:58→23:11)
[2021-07-13] MEDS: Albuterol Sulfate 90 MCG 8 GM INHALER 2 PUFF INHALE (09:31)
--- NOTE | 2021-07-13 16:11 | HO.PSYCHPN ---
Subjective Subjective Date of Service: 07/13/21 Reason For Visit: Alcohol use disorder, depression, SI Subjective Notes: Conditional Voluntary Interim History: The nursing staff reported the patient has been visible in the unit, no new complaints. On interview, the patient denies new symptoms, he is pleasant and he reported that his apartment will be available next Saturday. Review of Systems Acute medical concerns: No Medical Review of Systems: unchanged Mental Status Exam Mental Status Exam Patient Appearance: Well Grooomed Patient Orientation: Person, Place and Situation Level of Consciousness: Awake Patient Behavior: Appropriate and Cooperative Mood Description: Constricted Affect Description: Calm Patient Cognition Impaired: Yes Ability to Follow Directions: Good Speech Pattern: Clear Hallucinations: None Delusions: Not Present Thought Process: Intact Thought Content: positive for Intact Judgement: Fair Diagnostics Vital Signs (24Hr): Vital Signs - 24 hr 07/12/21 18:00 07/13/21 06:00 Temperature 97.3 F 98.2 F Pulse Rate 98 120 H Respiratory Rate 18 16 Blood Pressure 168/75 H 123/63 Pulse Oximetry 97 98 Body Mass Index 26.1 Labs Results: 06/18/21 11:46 Imaging Radiology Impressions: ITS Impressions Brain MRI 06/21/21 20:15 IMPRESSION: 1. No acute intracranial abnormalities. 2. Mild underlying microangiopathy and generalized cerebral volume loss. Medications Medications Current Medications Acetaminophen (Acetaminophen 325 Mg Tablet) 650 mg PO Q6H PRN PRN Reason: Headache/Pain Mild Scale (1-3) Last Admin: 07/13/21 08:58 Dose: 650 mg Documented by: Albuterol Sulfate (Albuterol Sulfate 90 Mcg 8 Gm Inhaler) 2 puff INHALE RQ4H PRN PRN Reason: asthma Last Admin: 07/13/21 09:31 Dose: 2 puff Documented by: Hydroxyzine HCl (Hydroxyzine Hcl 25 Mg Tablet) 25 mg PO Q6H PRN PRN Reason: Anxiety Last Admin: 07/10/21 03:17 Dose: 25 mg Documented by: Lurasidone HCl (Lurasidone Hcl 20 Mg Tablet) 20 mg PO BEDTIME DIANE Last Admin: 07/12/21 20:55 Dose: 20 mg Documented by: Magnesium Hydroxide (Milk Of Magnesia 30 Ml Oral.Susp) 30 ml PO DAILY PRN PRN Reason: Constipation Melatonin (Melatonin 3 Mg Tablet) 6 mg PO BEDTIME PRN PRN Reason: Insomnia Last Admin: 07/12/21 20:55 Dose: 6 mg Documented by: Midodrine (Midodrine Hcl 5 Mg Tablet) 5 mg PO TIDAC [facility] Last Admin: 06/25/21 16:38 Dose: Not Given Documented by: Multivitamins/Vitamin C (Multivitamin Tablet) 1 tab PO DAILY [facility] Last Admin: 07/13/21 08:43 Dose: 1 tab Documented by: Naltrexone HCl (Naltrexone Hcl 50 Mg Tablet) 50 mg PO DAILY [facility] Last Admin: 07/13/21 08:43 Dose: 50 mg Documented by: Nicotine (Nicotine 21 Mg Patch.Td24) 21 mg TRANSDERMA DAILY [facility] Last Admin: 07/13/21 08:46 Dose: 21 mg Documented by: Thiamine HCl (Thiamine Hcl 100 Mg Tablet) 100 mg PO DAILY [facility] Last Admin: 07/13/21 08:43 Dose: 100 mg Documented by: Trazodone HCl (Trazodone Hcl 50 Mg Tablet) 50 mg PO BEDTIME PRN PRN Reason: Insomnia Last Admin: 07/12/21 00:14 Dose: 50 mg Documented by: Allergies Allergies Allergy/AdvReac Type Severity Reaction Status Date / Time ibuprofen [IBUPROFEN] Allergy Severe ANAPHYLAXIS Verified 06/11/21 14:23 cat dander [CATS] Allergy Unknown UNKNOWN Verified 06/11/21 14:23 dog dander [DOGS] Allergy Unknown UNKNOWN Verified 06/11/21 14:23 Assessment & Plan Assessment & Plan (1) Alcohol use disorder, severe, dependence: Status: Acute Code(s): F10.20 - Alcohol dependence, uncomplicated (2) Bipolar disorder, current episode depressed, severe, without psychotic features: Status: Acute Code(s): F31.4 - Bipolar disorder, current episode depressed, severe, without psychotic features (3) Cognitive impairment: Status: Acute Code(s): R41.89 - Other symptoms and signs involving cognitive functions and awareness Assessment and Plan: Dat is a 66 y.o. Male who carries a dx of bipolar disorder, alcohol use disorder. He has a long history of depression, alcohol abuse. He presented [place] [facility] 12a on 06/13/21 after his sister calling EMS due to inability to function, decompensation. He is currently presenting with sx of neurocognitive impairment/ confusion, depressed mood. Had been drinking daily but denies withdrawal sx, no longer on CIWA protocols, receiving folic acid and thiamine therapy. Has hx of IPLOC on M5 and was diagnosed with bipolar disorder, treated with lithium and zyprexa, hx of ECT for severe depression. Hx of non-adherence with OP psych treatment, no current psychotropic medications. Denies current psychotic sx. Plan: Continue current regimen and plans with no changes Greater than 50% of the session was spent on counseling and/or coordination of care Reason for contiued inpatient stay Substantial Risk for: stable for discharge
[2021-07-13 18:00] VITALS: BP 130/93; PULSE 113; RESP 16; TEMP 36.1; O2SAT 97
[2021-07-13] MEDS: Melatonin 3 MG TABLET 6 MG PO (23:10)
[2021-07-13] MEDS: Lurasidone HCl 20 MG TABLET PO (23:11)
[2021-07-14] MEDS: Nicotine 21 MG PATCH.TD24 TRANSDERMA (08:20)
[2021-07-14] MEDS: Naltrexone HCl 50 MG TABLET PO (08:20)
[2021-07-14] MEDS: Multivitamin TABLET 1 TAB PO (08:20)
[2021-07-14] MEDS: Thiamine HCL 100 MG TABLET PO (08:20)
--- NOTE | 2021-07-14 09:36 | P.PNPSI_ITS ---
Subjective Subjective Date of Service: 07/14/21 Reason For Visit: Alcohol use disorder, depression, SI Subjective Notes: Conditional Voluntary Interim History: The nursing staff reported the patient has being in the common areas, cooperative and pleasant. He has been very worried that he could end up in a [place] [facility] [place] and he asked me today if that was the discharge plan. I explained him that he is going back to his apartment but he was worried since her good friend to him in the up on the [place]. On interview, today, he reported that he wants to drink again and I explained him that it could be dangerous due to his mental status and primary diagnosis. No safety concerns discharge is scheduled for Saturday when his apartment is available. Review of Systems Acute medical concerns: No Medical Review of Systems: unchanged Mental Status Exam Mental Status Exam Patient Appearance: Well Grooomed Patient Orientation: Person Level of Consciousness: Awake Patient Behavior: Cooperative Mood Description: Constricted Affect Description: Calm Patient Cognition Impaired: No Ability to Follow Directions: Good Hallucinations: None Delusions: Not Present Thought Process: Intact Thought Content: positive for Circumstantial Judgement: Fair Diagnostics Vital Signs (24Hr): Vital Signs - 24 hr 07/13/21 18:00 Temperature 97.0 F Pulse Rate 113 H Respiratory Rate 16 Blood Pressure 130/93 H Pulse Oximetry 97 Body Mass Index 26.1 Labs Results: 06/18/21 11:46 Imaging Radiology Impressions: ITS Impressions Brain MRI 06/21/21 20:15 IMPRESSION: 1. No acute intracranial abnormalities. 2. Mild underlying microangiopathy and generalized cerebral volume loss. Medications Medications Current Medications Acetaminophen (Acetaminophen 325 Mg Tablet) 650 mg PO Q6H PRN PRN Reason: Headache/Pain Mild Scale (1-3) Last Admin: 07/13/21 23:11 Dose: 650 mg Documented by: Albuterol Sulfate (Albuterol Sulfate 90 Mcg 8 Gm Inhaler) 2 puff INHALE RQ4H PRN PRN Reason: asthma Last Admin: 07/13/21 09:31 Dose: 2 puff Documented by: Hydroxyzine HCl (Hydroxyzine Hcl 25 Mg Tablet) 25 mg PO Q6H PRN PRN Reason: Anxiety Last Admin: 07/10/21 03:17 Dose: 25 mg Documented by: Lurasidone HCl (Lurasidone Hcl 20 Mg Tablet) 20 mg PO BEDTIME DIANE Last Admin: 07/13/21 23:11 Dose: 20 mg Documented by: Magnesium Hydroxide (Milk Of Magnesia 30 Ml Oral.Susp) 30 ml PO DAILY PRN PRN Reason: Constipation Melatonin (Melatonin 3 Mg Tablet) 6 mg PO BEDTIME PRN PRN Reason: Insomnia Last Admin: 07/13/21 23:10 Dose: 6 mg Documented by: Midodrine (Midodrine Hcl 5 Mg Tablet) 5 mg PO TIDAC [facility] Last Admin: 06/25/21 16:38 Dose: Not Given Documented by: Multivitamins/Vitamin C (Multivitamin Tablet) 1 tab PO DAILY [facility] Last Admin: 07/14/21 08:20 Dose: 1 tab Documented by: Naltrexone HCl (Naltrexone Hcl 50 Mg Tablet) 50 mg PO DAILY [facility] Last Admin: 07/14/21 08:20 Dose: 50 mg Documented by: Nicotine (Nicotine 21 Mg Patch.Td24) 21 mg TRANSDERMA DAILY [facility] Last Admin: 07/14/21 08:20 Dose: 21 mg Documented by: Thiamine HCl (Thiamine Hcl 100 Mg Tablet) 100 mg PO DAILY [facility] Last Admin: 07/14/21 08:20 Dose: 100 mg Documented by: Trazodone HCl (Trazodone Hcl 50 Mg Tablet) 50 mg PO BEDTIME PRN PRN Reason: Insomnia Last Admin: 07/12/21 00:14 Dose: 50 mg Documented by: Allergies Allergies Allergy/AdvReac Type Severity Reaction Status Date / Time ibuprofen [IBUPROFEN] Allergy Severe ANAPHYLAXIS Verified 06/11/21 14:23 cat dander [CATS] Allergy Unknown UNKNOWN Verified 06/11/21 14:23 dog dander [DOGS] Allergy Unknown UNKNOWN Verified 06/11/21 14:23 Assessment & Plan Assessment & Plan (1) Alcohol use disorder, severe, dependence: Status: Acute Code(s): F10.20 - Alcohol dependence, uncomplicated (2) Bipolar disorder, current episode depressed, severe, without psychotic features: Status: Acute Code(s): F31.4 - Bipolar disorder, current episode depressed, severe, without psychotic features (3) Cognitive impairment: Status: Acute Code(s): R41.89 - Other symptoms and signs involving cognitive functions and awareness Assessment and Plan: Dat is a 66 y.o. Male who carries a dx of bipolar disorder, alcohol use disorder. He has a long history of depression, alcohol abuse. He presented to [facility] via section 12a on 06/13/21 after his sister calling EMS due to inability to function, decompensation. He is currently presenting with sx of neurocognitive impairment/ confusion, depressed mood. Had been drinking daily but denies withdrawal sx, no longer on CIWA protocols, receiving folic acid and thiamine therapy. Has hx of IPLOC on M5 and was diagnosed with bipolar disorder, treated with lithium and zyprexa, hx of ECT for severe depression. Hx of non- adherence with OP psych treatment, no current psychotropic medications. Denies current psychotic sx. Plan: Continue current regimen and plans with no changes Greater than 50% of the session was spent on counseling and/or coordination of care Reason for contiued inpatient stay Substantial Risk for: inability to function, stable for discharge, rapid decompensation and med/psych decompensation
[2021-07-14] MEDS: Ibuprofen 400 MG TABLET PO (20:06)
[2021-07-14 20:33] VITALS: BP 158/72; PULSE 106; RESP 18; TEMP 36.8; O2SAT 97
[2021-07-14] MEDS: Melatonin 3 MG TABLET 6 MG PO (21:44)
[2021-07-14] MEDS: Acetaminophen 325 MG TABLET 650 MG PO (21:45)
[2021-07-14] MEDS: Lurasidone HCl 20 MG TABLET PO (21:45)
[2021-07-14] MEDS: traZODone HCL 50 MG TABLET PO (23:05)
[2021-07-15] MEDS: traZODone HCL 50 MG TABLET PO ×2 (02:29→23:04)
[2021-07-15] MEDS: Albuterol Sulfate 90 MCG 8 GM INHALER 2 PUFF INHALE ×3 (02:32→23:07)
[2021-07-15 06:00] VITALS: BP 146/75; TEMP 36.4; O2SAT 97
[2021-07-15] MEDS: Nicotine 21 MG PATCH.TD24 TRANSDERMA (07:52)
[2021-07-15] MEDS: Multivitamin TABLET 1 TAB PO (07:53)
[2021-07-15] MEDS: Naltrexone HCl 50 MG TABLET PO (07:53)
[2021-07-15] MEDS: Thiamine HCL 100 MG TABLET PO (07:53)
--- NOTE | 2021-07-15 12:56 | P.PNPSI_ITS ---
Subjective Subjective Date of Service: 07/15/21 Reason For Visit: Alcohol use disorder, depression, SI Interim History: pt reports he is feeling well, planning to discharge on saturday. MD asks if there is anything MD can do for him, and he requests MD bring him a six pack. per staff, pt is to be DCed saturday, awaiting his apartment to be fixed. no notable events or behaviors. Mental Status Exam Mental Status Exam Patient Appearance: Well Grooomed Patient Orientation: Person, Place and Situation Level of Consciousness: Awake Patient Behavior: Cooperative Mood Description: Relaxed and Cheerful Affect Description: Calm Patient Cognition Impaired: No Ability to Follow Directions: Good Hallucinations: None Delusions: Not Present Thought Process: Intact Judgement: Fair Diagnostics Vital Signs (24Hr): Vital Signs - 24 hr 07/14/21 20:33 Temperature 98.3 F Pulse Rate 106 H Respiratory Rate 18 Blood Pressure 158/72 H Pulse Oximetry 97 Body Mass Index 26.1 Labs Results: 06/18/21 11:46 Imaging Radiology Impressions: ITS Impressions Brain MRI 06/21/21 20:15 IMPRESSION: 1. No acute intracranial abnormalities. 2. Mild underlying microangiopathy and generalized cerebral volume loss. Medications Medications Current Medications Acetaminophen (Acetaminophen 325 Mg Tablet) 650 mg PO Q6H PRN PRN Reason: Headache/Pain Mild Scale (1-3) Last Admin: 07/14/21 21:45 Dose: 650 mg Documented by: Albuterol Sulfate (Albuterol Sulfate 90 Mcg 8 Gm Inhaler) 2 puff INHALE RQ4H PRN PRN Reason: asthma Last Admin: 07/15/21 02:32 Dose: 2 puff Documented by: Hydroxyzine HCl (Hydroxyzine Hcl 25 Mg Tablet) 25 mg PO Q6H PRN PRN Reason: Anxiety Last Admin: 07/10/21 03:17 Dose: 25 mg Documented by: Ibuprofen (Ibuprofen 400 Mg Tablet) 400 mg PO Q6H PRN PRN Reason: mild-mod pain Last Admin: 07/14/21 20:06 Dose: 400 mg Documented by: Lurasidone HCl (Lurasidone Hcl 20 Mg Tablet) 20 mg PO BEDTIME DIANE Last Admin: 07/14/21 21:45 Dose: 20 mg Documented by: Magnesium Hydroxide (Milk Of Magnesia 30 Ml Oral.Susp) 30 ml PO DAILY PRN PRN Reason: Constipation Melatonin (Melatonin 3 Mg Tablet) 6 mg PO BEDTIME PRN PRN Reason: Insomnia Last Admin: 07/14/21 21:44 Dose: 6 mg Documented by: Midodrine (Midodrine Hcl 5 Mg Tablet) 5 mg PO TIDAC [facility] Last Admin: 06/25/21 16:38 Dose: Not Given Documented by: Multivitamins/Vitamin C (Multivitamin Tablet) 1 tab PO DAILY [facility] Last Admin: 07/15/21 07:53 Dose: 1 tab Documented by: Naltrexone HCl (Naltrexone Hcl 50 Mg Tablet) 50 mg PO DAILY [facility] Last Admin: 07/15/21 07:53 Dose: 50 mg Documented by: Nicotine (Nicotine 21 Mg Patch.Td24) 21 mg TRANSDERMA DAILY [facility] Last Admin: 07/15/21 07:52 Dose: 21 mg Documented by: Thiamine HCl (Thiamine Hcl 100 Mg Tablet) 100 mg PO DAILY [facility] Last Admin: 07/15/21 07:53 Dose: 100 mg Documented by: Trazodone HCl (Trazodone Hcl 50 Mg Tablet) 50 mg PO BEDTIME PRN PRN Reason: Insomnia Last Admin: 07/15/21 02:29 Dose: 50 mg Documented by: Trolamine Salicylate/Aloe Vera (Trolamine Salicylate 10%/Aloe Cream 35.4 Gm) 1 appl TOPICAL TID PRN PRN Reason: min pain Allergies Allergies Allergy/AdvReac Type Severity Reaction Status Date / Time ibuprofen [IBUPROFEN] Allergy Severe ANAPHYLAXIS Verified 06/11/21 14:23 cat dander [CATS] Allergy Unknown UNKNOWN Verified 06/11/21 14:23 dog dander [DOGS] Allergy Unknown UNKNOWN Verified 06/11/21 14:23 Assessment & Plan Assessment & Plan (1) Alcohol use disorder, severe, dependence: Status: Acute Code(s): F10.20 - Alcohol dependence, uncomplicated (2) Bipolar disorder, current episode depressed, severe, without psychotic features: Status: Acute Code(s): F31.4 - Bipolar disorder, current episode depressed, severe, without psychotic features (3) Cognitive impairment: Status: Acute Code(s): R41.89 - Other symptoms and signs involving cognitive functions and awareness Assessment and Plan: Dat is a 66 y.o. Male who carries a dx of bipolar disorder, alcohol use disor melody. He has a long history of depression, alcohol abuse. He presented to [facility] [place] [facility] via section 12a on 06/13/21 after his sister calling EMS due to inability to function, decompensation. He is currently presenting with sx of neurocognitive impairment/ confusion, depressed mood. Had been drinking daily but denies withdrawal sx, no longer on CIWA protocols, receiving folic acid and thiamine therapy. Has hx of IPLOC on M5 and was diagnosed with bipolar disorder, treated with lithium and zyprexa, hx of ECT for severe depression. Hx of non-adherence with OP psych treatment, no current psychotropic medications. Denies current psychotic sx. Plan: Continue current regimen and plans with no changes Greater than 50% of the session was spent on counseling and/or coordination of care Reason for contiued inpatient stay Substantial Risk for: inability to function and med/psych decompensation
[2021-07-15] MEDS: Ibuprofen 400 MG TABLET PO (19:41)
[2021-07-15 20:11] VITALS: BP 135/67; PULSE 109; RESP 19; TEMP 36.6; O2SAT 97
[2021-07-15] MEDS: Acetaminophen 325 MG TABLET 650 MG PO (23:04)
[2021-07-15] MEDS: Melatonin 3 MG TABLET 6 MG PO (23:05)
[2021-07-15] MEDS: Lurasidone HCl 20 MG TABLET PO (23:06)
[2021-07-16] MEDS: traZODone HCL 50 MG TABLET PO (02:18)
[2021-07-16] MEDS: Albuterol Sulfate 90 MCG 8 GM INHALER 2 PUFF INHALE (07:52)
[2021-07-16] MEDS: Ibuprofen 400 MG TABLET PO ×2 (08:10→17:59)
[2021-07-16] MEDS: Thiamine HCL 100 MG TABLET PO (08:12)
[2021-07-16] MEDS: Multivitamin TABLET 1 TAB PO (08:12)
[2021-07-16] MEDS: Naltrexone HCl 50 MG TABLET PO (08:12)
[2021-07-16 08:56] VITALS: BP 136/74; PULSE 104; RESP 20; TEMP 36.2; O2SAT 97
[2021-07-16] MEDS: Nicotine 21 MG PATCH.TD24 TRANSDERMA (09:54)
--- NOTE | 2021-07-16 14:04 | HO.PSYCHPN ---
Subjective Subjective Date of Service: 07/16/21 Reason For Visit: Alcohol use disorder, depression, SI Interim History: pt reports he is feeling well. has no questions or complaints, still planning to DC tomorrow. pleasant, strong positive affect. per staff, pt was anxious overnight. he was confused at times during evening shift; per staff, this appear to be a pattern during evening shift. c/o SOB x2 in the past 24H, as received inhaler x2. Mental Status Exam Mental Status Exam Patient Appearance: Well Grooomed Patient Orientation: Person, Place and Situation Level of Consciousness: Awake Patient Behavior: Cooperative Mood Description: Relaxed and Cheerful Affect Description: Calm Patient Cognition Impaired: No Ability to Follow Directions: Good Hallucinations: None Delusions: Not Present Thought Process: Intact Judgement: Fair Diagnostics Vital Signs (24Hr): Vital Signs - 24 hr 07/15/21 20:11 07/16/21 08:56 Temperature 97.9 F 97.2 F Pulse Rate 109 H 104 H Respiratory Rate 19 20 Blood Pressure 135/67 136/74 Pulse Oximetry 97 97 Body Mass Index 26.1 Labs Results: 06/18/21 11:46 Imaging Radiology Impressions: ITS Impressions Brain MRI 06/21/21 20:15 IMPRESSION: 1. No acute intracranial abnormalities. 2. Mild underlying microangiopathy and generalized cerebral volume loss. Medications Medications Current Medications Acetaminophen (Acetaminophen 325 Mg Tablet) 650 mg PO Q6H PRN PRN Reason: Headache/Pain Mild Scale (1-3) Last Admin: 07/15/21 23:04 Dose: 650 mg Documented by: Albuterol Sulfate (Albuterol Sulfate 90 Mcg 8 Gm Inhaler) 2 puff INHALE RQ4H PRN PRN Reason: asthma Last Admin: 07/16/21 07:52 Dose: 2 puff Documented by: Hydroxyzine HCl (Hydroxyzine Hcl 25 Mg Tablet) 25 mg PO Q6H PRN PRN Reason: Anxiety Last Admin: 07/10/21 03:17 Dose: 25 mg Documented by: Ibuprofen (Ibuprofen 400 Mg Tablet) 400 mg PO Q6H PRN PRN Reason: mild-mod pain Last Admin: 07/16/21 08:10 Dose: 400 mg Documented by: Lurasidone HCl (Lurasidone Hcl 20 Mg Tablet) 20 mg PO BEDTIME DIANE Last Admin: 07/15/21 23:06 Dose: 20 mg Documented by: Magnesium Hydroxide (Milk Of Magnesia 30 Ml Oral.Susp) 30 ml PO DAILY PRN PRN Reason: Constipation Melatonin (Melatonin 3 Mg Tablet) 6 mg PO BEDTIME PRN PRN Reason: Insomnia Last Admin: 07/15/21 23:05 Dose: 6 mg Documented by: Midodrine (Midodrine Hcl 5 Mg Tablet) 5 mg PO TIDAC [facility] Last Admin: 06/25/21 16:38 Dose: Not Given Documented by: Multivitamins/Vitamin C (Multivitamin Tablet) 1 tab PO DAILY [facility] Last Admin: 07/16/21 08:12 Dose: 1 tab Documented by: Naltrexone HCl (Naltrexone Hcl 50 Mg Tablet) 50 mg PO DAILY [facility] Last Admin: 07/16/21 08:12 Dose: 50 mg Documented by: Nicotine (Nicotine 21 Mg Patch.Td24) 21 mg TRANSDERMA DAILY [facility] Last Admin: 07/16/21 09:54 Dose: 21 mg Documented by: Thiamine HCl (Thiamine Hcl 100 Mg Tablet) 100 mg PO DAILY [facility] Last Admin: 07/16/21 08:12 Dose: 100 mg Documented by: Trazodone HCl (Trazodone Hcl 50 Mg Tablet) 50 mg PO BEDTIME PRN PRN Reason: Insomnia Last Admin: 07/16/21 02:18 Dose: 50 mg Documented by: Trolamine Salicylate/Aloe Vera (Trolamine Salicylate 10%/Aloe Cream 35.4 Gm) 1 appl TOPICAL TID PRN PRN Reason: min pain Last Admin: 07/16/21 07:02 Dose: 1 appl Documented by: Allergies Allergies Allergy/AdvReac Type Severity Reaction Status Date / Time ibuprofen [IBUPROFEN] Allergy Severe ANAPHYLAXIS Verified 06/11/21 14:23 cat dander [CATS] Allergy Unknown UNKNOWN Verified 06/11/21 14:23 dog dander [DOGS] Allergy Unknown UNKNOWN Verified 06/11/21 14:23 Assessment & Plan Assessment & Plan (1) Alcohol use disorder, severe, dependence: Status: Acute Code(s): F10.20 - Alcohol dependence, uncomplicated (2) Bipolar disorder, current episode depressed, severe, without psychotic features: Status: Acute Code(s): F31.4 - Bipolar disorder, current episode depressed, severe, without psychotic features (3) Cognitive impairment: Status: Acute Code(s): R41.89 - Other symptoms and signs involving cognitive functions and awareness Assessment and Plan: Dat is a 66 y.o. Male who carries a dx of bipolar disorder, alcohol use disorder. He has a long history of depression, alcohol abuse. He presented to [facility] ED via section 12a on 06/13/21 after his sister calling EMS due to inability to function, decompensation. He is currently presenting with sx of neurocognitive impairment/ confusion, depressed mood. Had been drinking daily but denies withdrawal sx, no longer on CIWA protocols, receiving folic acid and thiamine therapy. Has hx of IPLOC on M5 and was diagnosed with bipolar disorder, treated with lithium and zyprexa, hx of ECT for severe depression. Hx of non-adherence with OP psych treatment, no current psychotropic medications. Denies current psychotic sx. Plan: Continue current regimen and plans with no changes Greater than 50% of the session was spent on counseling and/or coordination of care Reason for contiued inpatient stay Substantial Risk for: inability to function and med/psych decompensation
[2021-07-16 18:00] VITALS: BP 147/67; PULSE 104; RESP 20; TEMP 37.2; O2SAT 97
[2021-07-16] MEDS: Acetaminophen 325 MG TABLET 650 MG PO (21:42)
[2021-07-16] MEDS: Melatonin 3 MG TABLET 6 MG PO (21:42)
[2021-07-16] MEDS: Lurasidone HCl 20 MG TABLET PO (21:42)
[2021-07-17] MEDS: Albuterol Sulfate 90 MCG 8 GM INHALER 2 PUFF INHALE (04:22)
[2021-07-17 08:08] VITALS: BP 146/62; PULSE 108; RESP 17; TEMP 36.6; O2SAT 96
--- NOTE | 2021-07-17 08:12 | PM.PSYDC ---
DS: Providers Provider Date of Service: 07/17/21 Date of admission: 06/16/21 16:04 Date of discharge: 07/17/21 Primary care physician: Unknown Physician Consults: 07/05/21 08:50 Addiction Medicine Routine Consulting Provider: Justina Cates Reason for consultation: eval for addiction services Attending physician on discharge: Oskar Che DS: Diagnosis Discharge Diagnosis (1) Alcohol use disorder, severe, dependence: Status: Acute (2) Bipolar disorder, current episode depressed, severe, without psychotic features: Status: Acute (3) Cognitive impairment: Status: Acute DS: Medications Discharge Medications Home Medications: Home Medications Medication Instructions Recorded Confirmed ipratropium 20 mcg-albuterol 100 1 puff INHALATION DAILY 06/13/21 06/16/21 mcg/actuation mist for inhalation (Combivent Respimat) Previous Rx's Medication Instructions Recorded folic acid 1 mg tablet 1 mg PO DAILY #0 tab 06/16/21 midodrine 5 mg tablet 5 mg PO TIDAC #0 tab 06/16/21 thiamine mononitrate (vit B1) 100 100 mg PO DAILY #0 tab 06/16/21 mg tablet Mental Status Exam Mental Status Exam Patient Appearance: Well Grooomed Patient Orientation: Person, Place and Situation Level of Consciousness: Awake and Alert Patient Behavior: Appropriate and Cooperative Mood Description: Appropriate Affect Description: Calm Patient Cognition Impaired: No Ability to Follow Directions: Good Speech Pattern: Clear Hallucinations: None Delusions: Not Present Thought Process: Goal Oriented and Linear Thought Content: positive for Circumstantial and positive for Poverty of Content Judgement: Fair Judgement and Insight: LImited insight into his substance abuse diagnosis Data Imaging Diagnostic Imaging Impressions Brain MRI 06/21/21 20:15 IMPRESSION: 1. No acute intracranial abnormalities. 2. Mild underlying microangiopathy and generalized cerebral volume loss. DS: Summary Hospital Course Hospital Course: The patient was brought into the facility to the emergency room since his sister called 911. The patient was sustained on his own apartment drinking daily and he has soiled himself. There were feces all over his apartment and the apartment was deemed unsuitable. The patient on admission was assessed to look for alcohol withdrawal but he did not scored on the cows. Initially, he was incontinent he was unable to take care of himself. We started Latuda 20 mg p.o. q.a.m. as a mood stabilizer and naltrexone to target alcohol cravings. The patient's mood and functionality came back after 1 week. We did a Pettis test and he scored highly but it was clear that he was confabulating. We had several family meetings and we try to behavioral school counselors the patient to quit drinking but he has stated that he wants to drink but again. At this moment the patient does not have safety concerns, his apartment has being fixed and several services were arranged as an outpatient such as ancillary services ([facility] and a substance abuse program as an outpatient). Discharge planning was discussed Time spent discussing smoking cessation with patient: 3 to 10 minutes Status at Discharge Cognitive/behavioral status at discharge: at baseline Functional status at discharge: independent ambulation Overall status at discharge: patient is back to baseline Time Spent with Patient Time attestation: Total time spent providing and/or coordinating discharge services: Time spent: Less than 30 minutes Discharge Plan Discharge Patient Disposition: Home, Self-Care Discharge Diagnosis: Alcohol use disorder Bipolar disorder Mild Cognitive Disorder Referrals: Diana Estrada @ [facility] [Other] - 1 Week (Dat is currently in the [place] program and receives 3 hours of heavy chores MWF, weekly laundry and 7 days meal pack. Services to resume post discharge from inpatient unit inspector health care facilities Diana Estrada informed of discharge date for , 07/17/21 @ 1 PM. Please call case manger when you arrive home and follow up as needed.) [facility] (therapists) [Other] - 1 Week (Initial intake appointment scheduled for ) [facility] (medication prescriber) [Other] - 1 Week (Medication prescriber appointment scheduled for ) Physician,Unknown [Primary Care Provider] - 1 Week Discharge Medications: New albuterol sulfate [Ventolin HFA] 90 mcg/actuation Hfa Aerosol Inhaler 2 puff inhalation RQ4H PRN (Reason: asthma) 30 Days Qty: 1 RF: 0 acetaminophen 325 mg Tablet 650 mg PO Q6H PRN (Reason: Headache/Pain Mild Scale (1-3)) 30 Days Qty: 60 RF: 0 Latuda 20 mg Tablet 20 mg PO BEDTIME 30 Days Qty: 30 RF: 0 trazodone 50 mg Tablet 50 mg PO BEDTIME PRN (Reason: Insomnia) 30 Days Qty: 30 RF: 0 naltrexone 50 mg Tablet 50 mg PO DAILY 30 Days Qty: 30 RF: 0 melatonin 3 mg Tablet 6 mg PO BEDTIME PRN (Reason: Insomnia) 30 Days Qty: 60 RF: 0 Aspercreme with Aloe 10 % Cream 1 appl topical TID PRN (Reason: min pain) 30 Days Qty: 1 RF: 0 multivitamin [Daily-Craig] Tablet 1 tab PO DAILY 30 Days Qty: 30 RF: 0 thiamine mononitrate (vit B1) 100 mg Tablet 100 mg PO DAILY 30 Days Qty: 30 RF: 0 Continued midodrine 5 mg Tablet 5 mg PO TIDAC 30 Days Qty: 90 RF: 0 folic acid 1 mg Tablet 1 mg PO DAILY 30 Days Qty: 30 RF: 0 Combivent Respimat 20-100 mcg/actuation Mist 1 puff INHALATION DAILY 30 Days Qty: 4 RF: 0 Discontinued thiamine mononitrate (vit B1) 100 mg Tablet 100 mg PO DAILY Qty: 0 RF: 0 Discharge Orders: Discharge Order (Routine); Ordered 07/17/21 Ordered By: Oskar Che Diet: advance to usual diet Activity on Discharge: As tolerated Stand Alone Forms: Patient Portal Discharge page Care Plan Goals: Care plan goals achieved in the unit Health Concerns: Continue treatment by primary care physician. Smoking cessation advice was provided Plan of Treatment: Continue medication management as an outpatient. Continue naltrexone for substance abuse. Continue psychotherapy Assessment: The patient is an elderly male with a history of bipolar disorder and alcohol use disorder, admitted for failure to thrive, drinking constantly, not taking care of himself and unable to take care of his apartment. The patient was admitted into the facility, medications were restarted and he was back at baseline but he does not have any insight into his substance abuse, he stated that he is going to drink but again.
[2021-07-17] MEDS: Thiamine HCL 100 MG TABLET PO (08:20)
[2021-07-17] MEDS: Multivitamin TABLET 1 TAB PO (08:20)
--- NOTE | 2021-07-17 13:09 | PC.NURSE ---
Patient is alert and oriented x 3, person place and time. Patient stated My appetite is great and I am sleeping good. I am looking forward to getting home . Patient is in a cheerful mood with congruent affect. Patient denied any pain. Patient denied SI/HI/AH/VH. Patient verbalized feeling safe. Patient denied anxiety or depression and stated I feel great . Currently has KELLEY's on BLE. Patient denied any complaints. Patient verbalized understanding of discharge instructions and denied any further questions. Patient stated I am going to stop at the package store on my way home and get a pack of cigarettes and a case of beer .
== END 2021-07-17 13:00 | disposition home or self-care (01) | DRG 885 ==
PROVIDERS: Social Worker; Admitting Provider Psychiatry & Neurology Psychiatry; Visit Provider Psychiatry & Neurology Psychiatry
DX: F31.4 Bipolar disorder, current episode depressed, severe, without psychotic features (principal); R45.851 Suicidal ideations; F10.20 Alcohol dependence, uncomplicated; G89.29 Other chronic pain; G31.84 Mild cognitive impairment of uncertain or unknown etiology; Z91.19 Patient's noncompliance with other medical treatment and regimen; F17.210 Nicotine dependence, cigarettes, uncomplicated; Z71.6 Tobacco abuse counseling; Z23 Encounter for immunization; Z88.6 Allergy status to analgesic agent; Z79.899 Other long term (current) drug therapy
CPT/HCPCS: 36415; 70551; 80053; 82607; 82746; 90686; 97116; 97162; 99232